=== PATIENT | female | born 1950 | race Caucasian/White ===

== ENCOUNTER 2018-03-18 21:32 | Emergency (ER) | payer MEDICARE, OTHER, SELFPAY ==
[2018-03-18 21:42] VITALS: BP 161/59; PULSE 61; RESP 22; TEMP 36.6; O2SAT 97
--- NOTE | 2018-03-18 21:42 | ED_ITS ---
HPI - General Adult General Chief complaint: Diabetic Problem Stated complaint: States Blood Sugar is very high Time Seen by Provider: 03/18/18 21:39 Source: patient and family Mode of arrival: ambulatory Limitations: no limitations History of Present Illness HPI narrative: Patient is a 68-year-old female who presents with high glucose. She has a history of giant cell temporal arteritis she currently on steroids which are being tapered. She had a headache since 02/25/2018. She was started on steroids and had a biopsy which actually was negative. However she continues to have headache and chronic abdominal pain. She actually had an outpatient MRI head and abdomen today. However when she got home she noted that her blood sugar was more than 400. It had been more elevated over the past 4 days but this is the highest that it has been. She did give herself 10 units of Lantus just prior to arrival. She was hospitalized for hyperglycemia years ago when was instructed that if her glucose is over 400 that she needs to be evaluated. She has no nausea or vomiting. Her headache is a little worse now her but has been fairly steady over the past couple of weeks. She has been having ongoing difficulty walking and balance issues nothing worse today. She has chronic ongoing abdominal pain also not any worse today. No vomiting. Onset (ago): week(s) Relieving factors: none Exacerbating factors: none Related Data Home Medications Medication Instructions Recorded Confirmed acyclovir 5 % TOPICAL QID 03/18/18 03/18/18 ascorbic acid (vitamin C) [Vitamin 1,000 mg PO DAILY 03/18/18 03/18/18 C] atenolol 25 mg PO DAILY 03/18/18 03/18/18 biotin 5,000 mg PO DAILY 03/18/18 03/18/18 conjugated estrogens [Premarin] 0.45 mg PO DAILY 03/18/18 03/18/18 cyclosporine [Restasis] 0.05 % EYE-BOTH BID 03/18/18 03/18/18 diazepam [Valium] 5 mg PO DAILY PRN 03/18/18 03/18/18 fluticasone [Flonase Allergy 50 mcg INTRANASAL DAILY PRN 03/18/18 03/18/18 Relief] folic acid 800 mcg PO DAILY 03/18/18 03/18/18 meclizine 12.5 mg PO DAILY 03/18/18 03/18/18 meloxicam 15 mg PO DAILY 03/18/18 03/18/18 metformin 1,000 mg PO BID 03/18/18 03/18/18 neomycin-polymyxin B-dexameth 1 drp EYE-BOTH BID 03/18/18 03/18/18 [Maxitrol] omega-3 acid ethyl esters [Lovaza] 2 cap PO BID 03/18/18 03/18/18 prednisone 40 mg PO DAILY 03/18/18 03/18/18 pyridoxine (vitamin B6) [Vitamin 50 mg PO BID 03/18/18 03/18/18 B-6] ranitidine HCl 300 mg PO DAILY 03/18/18 03/18/18 sertraline 75 mg PO DAILY 03/18/18 03/18/18 vitamin B complex 2 tab PO DAILY 03/18/18 03/18/18 Allergies Allergy/AdvReac Type Severity Reaction Status Date / Time gabapentin Allergy Verified 03/18/18 21:42 Iodinated Contrast- Oral and Allergy Verified 03/18/18 21:42 IV Dye Review of Systems Review of Systems All systems reviewed & are unremarkable except as noted in HPI and below Constitutional Reports system reviewed and no additional complaints, except as docu, Reports fatigue, Denies frequent falls, Reports headache(s), Reports poor appetite and Reports weight loss (10 lb in a week) Eyes Reports change in vision (Blurry diagnosed with a retinal hemorrhage in the right eye by Ophthalmology), Denies irritation, Denies itchy eyes and Denies loss of vision ENT Ears, Nose, Mouth, and Throat: Denies dizziness, Denies facial pain, Reports headache(s) and Reports neck pain Cardiovascular Denies chest pain, Denies syncope, Denies irregular heart rhythm, Denies lightheadedness, Denies palpitations, Denies dyspnea, Denies dyspnea on exertion and Denies orthopnea Respiratory Denies cough, Denies dyspnea, Denies dyspnea on exertion and Denies wheezing Gastrointestinal Gastrointestinal: Reports system reviewed and no additional complaints, except as docu, Reports abdominal pain, Reports dyspepsia and Reports nausea Genitourinary Denies hematuria, Denies flank pain, Denies urinary incontinence and Denies urinary urgency Musculoskeletal Denies abnormal gait and Reports neck pain Integumentary/Breasts Denies pruritus, Denies erythema, Denies rash and Denies wounds Neurologic Denies abnormal gait, Denies dizziness, Denies syncope, Denies frequent falls, Reports headache(s), Denies lack of coordination, Denies focal weakness, Denies loss of vision and Denies seizure-like activity Endocrine Reports fatigue and Denies palpitations Allergic/Immunologic Denies itchy eyes and Denies wheezing PFSH Medical History Diabetes (Acute) Giant cell arteritis (Acute) Hypertension (Acute) Social History caregiver/support person: Yes (son) Exam Const General: cooperative and healthy appearing [facility] Head: normal to inspection and normocephalic Mouth: oral mucosae normal Resp Effort & Inspection: normal respiratory effort, able to speak in complete sentences, no respiratory distress and no use of accessory muscles Auscultation: clear to auscultation bilaterally, no rales, no rhonchi and no wheezes Cardio Rate: regular rate Rhythm: regular rhythm Heart Sounds: no click, no gallops, no murmurs and no rubs Pulses: normal peripheral pulses Skin General: no rashes or lesions noted and warm Lesions: no lesions Neuro General: alert, awake, oriented x3, no meningeal signs and no focal motor deficits Cranial Nerves: CN's II-XI intact bilaterally Cognition: normal cognition Speech: speech normal Medical Decision Making MDM Narrative Medical decision making narrative: Glucose is coming down. No sign of DKA. Mild elevation in the lipase is given 2 L of IV fluids. She has had chronic ongoing abdominal pain and headache. Glucose elevated likely due to prednisone. She does have Humalog and Lantus at home. She thinks she lost her sliding scale. She is given instructions on how to use 1 by myself and a copy of [facility] subcutaneous insulin algorithm 1. All questions have been addressed. Her headache actually improved with Zofran fluid and Tylenol. She was sleeping. She is ambulatory to the restroom without assistance.. No ketones in her urine. At home she is taking meloxicam and prednisone. She is also on an antacid she knows that this combination can hurt her stomach. I recommended Tylenol. Lab Data Result diagrams: 03/18/18 22:00 03/18/18 22:00 Lab Results 03/18/18 03/18/18 Range/Units 22:00 22:00 WBC 9.7 (4.5-11.0) X10^3/uL RBC 4.57 (4.0-5.2) X10^6/uL Hgb 13.2 (12.0-16.0) g/dL Hct 39.2 (36-46) % MCV 85.9 (80-100) fL MCH 28.8 (26-34) PG MCHC 33.6 (30-36) % RDW 15.9 H (11.6-14.8) % Plt Count 229 (150-400) X10^3/uL Neut % (Auto) 87.0 H (50-75) % Lymph % (Auto) 9.7 L (25-40) % [place] % (Auto) 3.1 (3-14) % Eos % (Auto) 0.0 L (2-4) % Baso % (Auto) 0.2 (0-2) % Neut # (Auto) 8500 H (2152-7854) /uL Sodium 132 L (137-145) mmol/L Potassium 4.7 (3.4-5.1) mmol/L Chloride 93.0 L (98-107) mmol/L Carbon Dioxide 23.0 (22-32) mmol/L BUN 36.0 H (7-17) mg/dL Creatinine 1.10 H (0.52-1.04) mg/dL Estimated GFR 49.1 L (>60) mL/min BUN/Creatinine Ratio 32.7 H (6-22) Glucose 513 H* (80-110) mg/dL Calcium 9.4 (8.4-10.2) mg/dL Total Bilirubin 0.5 (0.2-1.3) mg/dL AST 23 (14-36) IU/L ALT 19 (9-52) IU/L Alkaline Phosphatase 81 (38-126) U/L Total Protein 7.0 (6.3-8.2) g/dL Albumin 4.0 (3.5-5.0) g/dL Globulin 3.0 (1.7-4.1) g/dL Albumin/Globulin Ratio 1.3 (1.0-2.8) Lipase 574 H (23-300) U/L Course Orders Ordered: ED Orders 03/18/18 22:04 Lipase Stat 03/18/18 22:05 Complete Blood Count AUTO DIFF Stat 03/18/18 22:06 Comprehensive Metabolic Panel Stat Lipase Stat Urinalysis and Microscopic Stat Discontinued Medications Acetaminophen (Tylenol) 975 mg PO NOW ONE Stop: 03/18/18 22:05 Last Admin: 03/18/18 22:20 Dose: 975 mg Sodium Chloride (Normal Saline 0.9%) 1,000 mls @ 1,000 mls/hr IV BOLUS ONE Stop: 03/18/18 23:03 Last Infusion: 03/18/18 23:21 Dose: 0 mls/hr Admin: 03/18/18 22:27 Dose: 1,000 mls/hr Sodium Chloride (Normal Saline 0.9%) 1,000 mls @ 1,000 mls/hr IV BOLUS ONE Stop: 03/18/18 23:25 Last Infusion: 03/19/18 00:29 Dose: 0 mls/hr Admin: 03/18/18 23:21 Dose: 1,000 mls/hr Insulin Human Regular (Humulin R) 10 unit SUBCUT NOW ONE Stop: 03/18/18 22:24 Last Admin: 03/18/18 22:39 Dose: 10 unit Ondansetron HCl (Zofran) 4 mg IV NOW ONE Stop: 03/18/18 22:05 Last Admin: 03/18/18 22:19 Dose: 4 mg Last Vital Signs Temp 97.5 F L 03/19/18 00:19 Pulse 57 L 03/19/18 00:19 Resp 14 03/19/18 00:19 BP 143/59 H 03/19/18 00:19 Pulse Ox 98 03/19/18 00:19 Discharge Plan Departure Patient Disposition: Home, Self-Care Clinical Impression: Acute hyperglycemia Discharge Date/Time: 03/19/18 00:37 Interventions: ED Discharge Assessment Last Done: 03/19/18 00:36 Instructions: DI for Diabetes Type 1 -- Adult Activity Restrictions/Additional Instructions: *You have been diagnosed with high glucose *What to do: Glucose is uncontrolled secondary to prednisone. Talk with her primary provider about increasing your insulin as needed. *Take medications as directed *Follow up with your primary care provider in 2-3 days *Return to ER if you should have weakness, speech difficulty, vision changes, fever, persistent vomiting, worsening abdominal pain or any new, worsening or concerning symptoms Prescriptions: No Action acyclovir 5 % Ointment 5 % Topical QID RF: 0 ascorbic acid (vitamin C) [Vitamin C] 1,000 mg Tablet 1,000 mg PO DAILY RF: 0 biotin 5 mg Capsule 5,000 mg PO DAILY RF: 0 atenolol 25 mg Tablet 25 mg PO DAILY RF: 0 vitamin B complex Tablet 2 tab PO DAILY RF: 0 meloxicam 15 mg Tablet 15 mg PO DAILY RF: 0 prednisone 20 mg Tablet 40 mg PO DAILY RF: 0 meclizine 12.5 mg Tablet 12.5 mg PO DAILY RF: 0 metformin 1,000 mg Tablet 1,000 mg PO BID RF: 0 neomycin-polymyxin B-dexameth [Maxitrol] 3.5mg/mL-10,000 unit/mL-0.1 % Drops, Suspension 1 drp EYE-BOTH BID RF: 0 ranitidine HCl 150 mg Tablet 300 mg PO DAILY RF: 0 fluticasone [Flonase Allergy Relief] 50 mcg/actuation [place],Suspension 50 mcg Intranasal DAILY PRN (Reason: Allergy Symptoms) RF: 0 sertraline 50 mg Tablet 75 mg PO DAILY RF: 0 folic acid 800 mcg Tablet 800 mcg PO DAILY RF: 0 diazepam [Valium] 5 mg Tablet 5 mg PO DAILY PRN (Reason: Anxiety) RF: 0 cyclosporine [Restasis] 0.05 % [place] 0.05 % EYE-BOTH BID RF: 0 conjugated estrogens [Premarin] 0.45 mg Tablet 0.45 mg PO DAILY RF: 0 omega-3 acid ethyl esters [Lovaza] 1 gram Capsule 2 cap PO BID RF: 0 pyridoxine (vitamin B6) [Vitamin B-6] 50 mg Capsule 50 mg PO BID RF: 0 Referrals: [facility] [Provider Group] [facility] [Provider Group] [facility] [Provider Group] [facility] [Provider Group]
[2018-03-18 22:19] LABS: Alanine Aminotransferase 19 IU/L (9-52); Albumin Globulin Ratio 1.3 (1.0-2.8); Alkaline Phosphatase 81 U/L (38-126); Aspartate Aminotransferase 23 IU/L (14-36); BUN Creatinine Ratio 32.7 (6-22); Bilirubin Total 0.5 mg/dL (0.2-1.3); Calcium 9.4 mg/dL (8.4-10.2); Estimated Glomerular Filt Rate 49.1 mL/min (>60); HEMOLYSIS 35 (0-50); Lipase 574 U/L (23-300); Potassium 4.7 mmol/L (3.4-5.1); Sodium 132 mmol/L (137-145)
[2018-03-18] MEDS: ONDANSETRON 4 MG/2 ML INJ IV (22:19)
[2018-03-18] MEDS: ACETAMINOPHEN 325 MG TABLET 975 MG PO (22:20)
[2018-03-18 22:22] LABS: Glucose 513 mg/dL (80-110)
[2018-03-18 22:26] LABS: Add Manual Diff / Slide Review NO; Basophils Percent Auto 0.2 % (0-2); Hematocrit 39.2 % (36-46); Hemoglobin 13.2 g/dL (12.0-16.0); Lymphocytes Percent Auto 9.7 % (25-40); Mean Corpuscular HGB Conc 33.6 % (30-36); Mean Corpuscular Hemoglobin 28.8 PG (26-34); Mean Corpuscular Volume 85.9 fL (80-100); Monocytes Percent Auto 3.1 % (3-14); Neutrophils Absolute Auto 8500 /uL (3000-5900); Platelet Count 229 X10^3/uL (150-400); Red Blood Cell Count 4.57 X10^6/uL (4.0-5.2); Red Cell Distribution Width 15.9 % (11.6-14.8); White Blood Cell Count 9.7 X10^3/uL (4.5-11.0)
[2018-03-18] MEDS: SODIUM CHLORIDE 0.9% 1,000 ML 1000 ML IV ×2 (22:27→23:21)
[2018-03-18] MEDS: INSULIN REGULAR 100 UNIT/ML 3 ML VIAL 10 UNIT SUBCUT (22:39)
[2018-03-19 00:19] VITALS: BP 143/59; PULSE 57; RESP 14; TEMP 36.4; O2SAT 98
== END 2018-03-19 00:37 | disposition home or self-care (01) ==
PROVIDERS: Emergency Provider Emergency Medicine
DX: R73.9 Hyperglycemia, unspecified (principal)
CPT/HCPCS: 36591; 80053; 81003; 82962; 83690; 85025; 96361; 96372; 96374; 99283; 99284; 99291; J2405

== ENCOUNTER 2018-05-28 07:59 | Day surgery (SDC) | payer MEDICARE, OTHER, SELFPAY ==
[2018-05-28] VITALS (7 sets, daily range): BP systolic 131–152; BP diastolic 62–78; PULSE 64–74; RESP 14–16; TEMP 36.1–36.4; O2SAT 92–97; BMI 24.5
--- NOTE | 2018-05-28 | PATH_ITS ---
[facility] Accession Number: [id number] . 01 Material submitted: . PART A: DUODENAL BIOPSY PART B: GASTRIC BIOPSY PART C: RANDOM ESOPHAGIAL BIOPSY PART D: RANDOM COLON BIOPSY . 02 Diagnosis: A. Duodenum, Biopsy: Duodenal mucosa with no diagnostic abnormality. Negative for active inflammation, features of sprue, dysplasia and malignancy. . B. Stomach, Biopsy: Antral and body-type mucosa with no diagnostic abnormality. No evidence of Helicobacter on H/E stain. Negative for intestinal metaplasia. Negative for dysplasia and malignancy. . C. Esophagus, Random Biopsies: Squamous epithelium with no diagnostic abnormality. Intraepithelial eosinophils are not increased. Negative for dysplasia and malignancy. . D. Random Colon, Biopsies: Colonic mucosa with no diagnostic abnormality. Negative for active, chronic and microscopic colitis. Negative for dysplasia and malignancy. [facility]/05/29/2018 . 02 Electronically signed: . Monique Dos Santos MD, Pathologist NPI- [id number] . 01 Gross description: . Received four formalin-filled containers, each labeled with the patient's name: . A. In a container labeled duodenal, the specimen consists of two 0.1 0.3 cm portions of tissue, entirely submitted in cassette A. B. In a container labeled gastric (the container leaked in transit), the specimen consists of two 0.2 cm portions of tissue, entirely submitted in cassette B. C. In a container labeled random esophageal, the specimen consists of two less than 0.1 cm to 0.1 cm portions of tissue, entirely submitted in cassette C. D. In a container labeled random colon, the specimen consists of four 0.1-0.3 cm portions of tissue, entirely submitted in cassette D. ([id number]) /FRR . 02 Pathologist provided ICD-10: R10.9 . 02 CPT . 116324, 609395, 696603, 988306 Performed at: 01 [facility] [address] [id number] MD Jose A Singh MD Phone: [phone] Performed at: 02 [facility] [address] [place], [place] [id number] MD Moi Rodrigues MD Phone: [phone]
[2018-05-28] MEDS: SODIUM CHLORIDE 0.9% 1,000 ML 42 ML IV (08:26)
[2018-05-28] MEDS: fentaNYL 250 MCG/5 ML INJ IV (09:54)
[2018-05-28] MEDS: MIDAZOLAM 5 MG/5 ML VIAL IV (09:54)
--- NOTE | 2018-05-28 09:54 | PM.OP.ENDO ---
Operative Date/Time/Diagnoses Date of procedure: 05/28/18 Time of procedure: 09:54 Pre-op diagnosis: See indications Post-op diagnosis: same Procedure & Clinicians Study performed: EGD and colonoscopy Same procedure as scheduled: Yes Indications: Diarrhea, nausea and vomiting, heartburn unresponsive to medications, cervical dysphagia, weight loss, abdominal pain, history of vasculitis Surgeon: Isabell Lou Procedure Notes Procedure in detail: After informed consent was obtained the patient was placed in the left lateral decubitus position. The video upper scope was placed into the oropharynx and with the patient's help swallowed into the esophagus. The esophagus, stomach, and duodenum were carefully examined. The scope was removed the patient tolerated procedure well. The patient was then turned to the colonoscope substituted. This was inserted into the rectum slowly advanced to the cecum. Preparation was good. On slow withdrawal the mucosa was carefully examined. Scope was removed patient tolerated procedure well Blood loss none Complications none Sedation Versed 5 mg fentanyl 100 mcg IV titration Total sedation time 27 min Findings EGD One. Normal esophagus. Biopsies taken 2. Normal stomach. Biopsies taken 3. Normal duodenum. Biopsies taken Colonoscopy 1. Normal colonoscopy to cecum. Random biopsies taken to rule out microscopic colitis Patient will follow up with Dr. Carrera in 4-8 weeks. Office will call to schedule.
--- NOTE | 2018-05-28 10:13 | SUR.PHASEI ---
Eyes finally opened spontaneously, albeit briefly as opposed to opening to voice.
--- NOTE | 2018-05-28 11:11 | SUR.PHASEII ---
BLOOD GLUCOSE 106 AT 1030
== END 2018-05-28 10:45 | disposition home or self-care (01) ==
PROVIDERS: Visit Provider Internal Medicine Gastroenterology
PROC: 0DJ08ZZ Inspection of Upper Intestinal Tract, Via Natural or Artificial Opening Endoscopic (ICD-10-PCS; CPT 43235; principal; 2018-05-28 09:00)
PROC: 0DJD8ZZ Inspection of Lower Intestinal Tract, Via Natural or Artificial Opening Endoscopic (ICD-10-PCS; CPT 45378; 2018-05-28 09:00)
DX: R19.7 Diarrhea, unspecified (principal); R11.2 Nausea with vomiting, unspecified; R12 Heartburn; R13.19 Other dysphagia; R63.4 Abnormal weight loss; R10.9 Unspecified abdominal pain; Z79.4 Long term (current) use of insulin
CPT/HCPCS: 45380; 43239; 88305; J2250; J3010

== ENCOUNTER 2018-10-29 12:34 | Inpatient (IN) | payer MEDICARE, OTHER, SELFPAY ==
[2018-10-29] VITALS (7 sets, daily range): BP systolic 133–160; BP diastolic 57–80; PULSE 69–86; RESP 16–18; TEMP 36.2–36.8; O2SAT 94–100; BMI 24.3
--- NOTE | 2018-10-29 12:42 | ED.ABDPAIN ---
HPI - Abdominal Pain <Shikha Killian PA-C - Last Filed: 10/29/18 22:17> General Chief Complaint: Abdominal Pain Stated Complaint: PAIN IN LEFT SIDE GROIN AREA Time Seen by Provider: 10/29/18 12:41 Source: patient Mode of arrival: ambulatory Limitations: no limitations History of Present Illness HPI narrative: This 68-year-old female comes in due to left groin area mass and pain. She states that she 1st noticed this last Saturday, and has been gradually worsening. She states actually yesterday was worse than today as far as the pain goes. Her PCP was not available today so she came in here. She states that pain is worse with pressure on the site. It is localized. She has a history of rectocele and bladder prolapse and notes these have been gradually worse as well. She denies any acute urinary symptoms. She has chronic intermittent diarrhea and denies any bowel habit changes. She states that she has not had vomiting. She has some ongoing nausea and chest discomfort due to severe acid reflux that she states is unchanged. She denies any dyspnea. She does not know of any fevers at home, thinks maybe 1 day she had 1 but not in the last couple of days. She denies any other acute complaints on systems review. She has been straining more in general recently and her son notes that she has a small dog that is about 20 lb overweight that she does lift, so thinks maybe contributes. Her last meal was breakfast about 9:00 a.m. this morning. She states her blood sugars were high after [place] dinner, 225. Related Data Home Medications Medication Instructions Recorded Confirmed acyclovir 5 % TOPICAL QID 03/18/18 10/29/18 ascorbic acid (vitamin C) [Vitamin 1,000 mg PO DAILY 03/18/18 10/29/18 C] biotin 5,000 mg PO DAILY 03/18/18 10/29/18 conjugated estrogens [Premarin] 0.45 mg PO DAILY 03/18/18 10/29/18 cyclosporine [Restasis] 0.05 % EYE-BOTH BID 03/18/18 10/29/18 diazepam [Valium] 5 mg PO DAILY PRN 03/18/18 10/29/18 fluticasone [Flonase Allergy 50 mcg INTRANASAL DAILY PRN 03/18/18 10/29/18 Relief] folic acid 800 mcg PO DAILY 03/18/18 10/29/18 meclizine 12.5 mg PO DAILY 03/18/18 10/29/18 metformin 500 mg PO BID 03/18/18 10/29/18 neomycin-polymyxin B-dexameth 1 drp EYE-BOTH BID 03/18/18 10/29/18 [Maxitrol] omega-3 acid ethyl esters [Lovaza] 2 cap PO BID 03/18/18 10/29/18 pyridoxine (vitamin B6) [Vitamin 50 mg PO BID 03/18/18 10/29/18 B-6] vitamin B complex 2 tab PO DAILY 03/18/18 10/29/18 omeprazole 20 mg PO DAILY 05/28/18 10/29/18 lisinopril 20 mg PO DAILY 10/29/18 10/29/18 Allergies Allergy/AdvReac Type Severity Reaction Status Date / Time gabapentin Allergy Verified 05/28/18 08:19 Iodinated Contrast- Oral and Allergy Verified 05/28/18 08:19 IV Dye atorvastatin AdvReac Verified 10/29/18 12:53 Review of Systems <Shikha Killian PA-C - Last Filed: 10/29/18 22:17> Review of Systems All systems reviewed & are unremarkable except as noted in HPI and below Exam <Shikha Killian PA-C - Last Filed: 10/29/18 22:17> Narrative Exam Narrative: GENERAL APPEARANCE: Patient resting comfortably, in no distress. HEENT: PERRL, EOMI, no scleral icterus NECK: Supple LUNGS: Clear to auscultation bilaterally. HEART: Rate and rhythm regular, normal S1 and S2, no S3 or S4. ABDOMEN: Soft, nontender, nondistended, bowel sounds present x 4 quadrants, no masses palpable, no hepatosplenomegaly. EXTREMITIES: No edema, no calf TTP DERMATOLOGIC: No jaundice or exanthem NEUROLOGIC: Alert and oriented with normal speech and coordination : L. upper mons/groin there is a firm, very tender prominence. Temporarily this is partly reducible. There are bowel sounds. Tender with moving from sit to supine or stand. No other palpable masses or tender area Initial Vital Signs Initial Vital Signs: Vital Signs Temperature 98.1 F 10/29/18 12:50 Pulse Rate 86 12/26/18 12:50 Respiratory Rate 18 10/29/18 12:50 Blood Pressure 160/72 H 10/29/18 12:50 Pulse Oximetry 99 10/29/18 12:50 <Brianna Tao DO - Last Filed: 10/30/18 19:13> Initial Vital Signs Initial Vital Signs: Vital Signs Temperature 98.1 F 10/29/18 12:50 Pulse Rate 86 10/29/18 12:50 Respiratory Rate 18 10/29/18 12:50 Blood Pressure 160/72 H 10/29/18 12:50 Pulse Oximetry 99 10/29/18 12:50 Course <Shikha Killian PA-C - Last Filed: 10/29/18 22:17> Additional Information: US findings reviewed. I have spoken with Dr. Aceves on-call for surgery who agrees patient will need to go to the OR. Labs and EKG ordered. Patient has been NPO since 9 or 9:30 a.m. aside from her pain pills. Dr. Aceves will evaluate here when she finishes her OR case and plans to take her to OR directly Orders Ordered: ED Orders 10/31/18 05:00 Complete Blood Count AUTO DIFF Routine Comprehensive Metabolic Panel Routine Acetaminophen (Tylenol) 650 mg PO Q6HR PRN PRN Reason: Pain, Mild (1-3) Acyclovir (Zovirax 5% Oint) 1 applic TOP QID [facility] Last Admin: 10/30/18 17:16 Dose: 1 applic Admin: 10/30/18 14:28 Dose: Not Given Admin: 10/30/18 08:55 Dose: Not Given Admin: 10/29/18 19:51 Dose: Not Given Atenolol (Tenormin) 25 mg PO DAILY [facility] Last Admin: 10/30/18 09:03 Dose: Not Given Diazepam (Valium) 5 mg PO Q12HR [facility] Last Admin: 10/30/18 14:53 Dose: Not Given Admin: 10/30/18 01:38 Dose: Not Given Docusate Sodium (Colace) 100 mg PO BID PRN PRN Reason: Constipation Last Admin: 10/30/18 08:56 Dose: 100 mg Duloxetine HCl (Cymbalta) 30 mg PO DAILY [facility] Last Admin: 10/30/18 09:04 Dose: Not Given Fluticasone Propionate (Flonase) 1 spray NASAL DAILY PRN PRN Reason: Congestion Lactated Ringer's (Lactated Ringers) 1,000 mls @ 75 mls/hr IV CONT [facility] Last Admin: 10/30/18 09:55 Dose: 75 mls/hr Infusion: 10/30/18 09:12 Dose: 75 mls/hr Admin: 10/29/18 19:52 Dose: 75 mls/hr Morphine Sulfate (Morphine Film Numberer) 30 mg in 30 mls @ 0 mls/hr IV Q8HR [facility] Metformin HCl (Glucophage) 1,000 mg PO 0800,1700 [facility] Last Admin: 10/30/18 17:16 Dose: 1,000 mg Admin: 10/30/18 08:54 Dose: 1,000 mg Naloxone HCl (Narcan) 0.2 mg IV Q2MIN PRN; Protocol PRN Reason: Opiate Reversal Non-Formulary Medication (Cyclosporine [Restasis]) 0.05 % EYE-BOTH BID [facility] Last Admin: 10/30/18 09:49 Dose: Admin: 10/29/18 21:13 Dose: Not Given Non-Formulary Medication (Conjugated Estrogens [Premarin]) 0.45 mg PO DAILY [facility] Last Admin: 10/30/18 09:49 Dose: Ondansetron HCl (Zofran) 4 mg IV Q4HR PRN PRN Reason: Nausea And Vomiting Last Admin: 10/30/18 09:55 Dose: 4 mg Pantoprazole Sodium (Protonix) 20 mg PO 0700,2100 [facility] Last Admin: 10/30/18 06:35 Dose: 20 mg Admin: 10/29/18 21:15 Dose: Not Given Discontinued Medications Acetaminophen (Tylenol) 325 mg PO NOW PRN PRN Reason: Pain, Mild (1-3) Hydrocodone Bitart/Acetaminophen ([place] 5/325) 1 tab PO NOW ONE Stop: 10/29/18 13:02 Last Admin: 10/29/18 13:08 Dose: 1 tab Hydrocodone Bitart/Acetaminophen ([place] 5/325) 1 tab PO NOW ONE Stop: 10/29/18 14:42 Last Admin: 10/29/18 14:45 Dose: 1 tab Hydrocodone Bitart/Acetaminophen ([place] 5/325) 1 tab PO Q30MIN PRN PRN Reason: Mild or moderate pain Fentanyl (Sublimaze) 25 mcg IV Q5MIN PRN PRN Reason: Pain, Mild (1-3) Hydromorphone HCl (Dilaudid) 0.25 mg IV Q5MIN PRN PRN Reason: Pain, Mild (1-3) Sodium Chloride (Normal Saline 0.9%) 1,000 mls @ 125 mls/hr IV CONT [facility] Last Infusion: 10/29/18 16:41 Dose: 0 mls/hr Admin: 10/29/18 15:15 Dose: 125 mls/hr Cefazolin Sodium/Dextrose (Ancef) 2 gm in 100 mls @ 200 mls/hr IV NOW ONE Stop: 10/29/18 18:10 Last Admin: 10/29/18 19:47 Dose: Lactated Ringer's (Lactated Ringers) 1,000 mls @ 42 mls/hr IV CONT [facility] Last Admin: 10/29/18 19:52 Dose: Lactated Ringer's (Lactated Ringers) 1,000 mls @ 75 mls/hr IV CONT [facility] Last Admin: 10/29/18 20:19 Dose: Morphine Sulfate (Morphine) 4 mg IV NOW ONE Stop: 10/29/18 15:09 Last Admin: 10/29/18 15:15 Dose: 4 mg Ondansetron HCl (Zofran) 4 mg IV NOW PRN PRN Reason: Nausea And Vomiting Oxycodone HCl (Percolone) 5 mg PO Q3HR PRN PRN Reason: Pain, Moderate (4-6) Last Admin: 10/30/18 14:52 Dose: 5 mg Admin: 10/30/18 10:17 Dose: 5 mg Admin: 10/30/18 06:34 Dose: 5 mg Admin: 10/30/18 00:25 Dose: 5 mg Admin: 10/29/18 21:28 Dose: 5 mg Vital Signs - 8 hr 10/30/18 12:00 10/30/18 15:23 Temperature 97.4 F L 98.9 F Pulse Rate 74 82 Respiratory Rate 16 16 Blood Pressure 139/69 115/52 L Pulse Oximetry 95 97 <Brianna Tao, - Last Filed: 10/30/18 19:13> Orders Ordered: ED Orders 10/31/18 05:00 Complete Blood Count AUTO DIFF Routine Comprehensive Metabolic Panel Routine Acetaminophen (Tylenol) 650 mg PO Q6HR PRN PRN Reason: Pain, Mild (1-3) Acyclovir (Zovirax 5% Oint) 1 applic TOP QID [facility] Last Admin: 10/30/18 17:16 Dose: 1 applic Admin: 10/30/18 14:28 Dose: Not Given Admin: 10/30/18 08:55 Dose: Not Given Admin: 10/29/18 19:51 Dose: Not Given Atenolol (Tenormin) 25 mg PO DAILY [facility] Last Admin: 10/30/18 09:03 Dose: Not Given Diazepam (Valium) 5 mg PO Q12HR [facility] Last Admin: 10/30/18 14:53 Dose: Not Given Admin: 10/30/18 01:38 Dose: Not Given Docusate Sodium (Colace) 100 mg PO BID PRN PRN Reason: Constipation Last Admin: 10/30/18 08:56 Dose: 100 mg Duloxetine HCl (Cymbalta) 30 mg PO DAILY [facility] Last Admin: 10/30/18 09:04 Dose: Not Given Fluticasone Propionate (Flonase) 1 spray NASAL DAILY PRN PRN Reason: Congestion Lactated Ringer's (Lactated Ringers) 1,000 mls @ 75 mls/hr IV CONT [facility] Last Admin: 10/30/18 09:55 Dose: 75 mls/hr Infusion: 10/30/18 09:12 Dose: 75 mls/hr Admin: 10/29/18 19:52 Dose: 75 mls/hr Morphine Sulfate (Morphine Film Numberer) 30 mg in 30 mls @ 0 mls/hr IV Q8HR [facility] Metformin HCl (Glucophage) 1,000 mg PO 0800,1700 [facility] Last Admin: 10/30/18 17:16 Dose: 1,000 mg Admin: 10/30/18 08:54 Dose: 1,000 mg Naloxone HCl (Narcan) 0.2 mg IV Q2MIN PRN; Protocol PRN Reason: Opiate Reversal Non-Formulary Medication (Cyclosporine [Restasis]) 0.05 % EYE-BOTH BID [facility] Last Admin: 10/30/18 09:49 Dose: Admin: 10/29/18 21:13 Dose: Not Given Non-Formulary Medication (Conjugated Estrogens [Premarin]) 0.45 mg PO DAILY [facility] Last Admin: 10/30/18 09:49 Dose: Ondansetron HCl (Zofran) 4 mg IV Q4HR PRN PRN Reason: Nausea And Vomiting Last Admin: 10/30/18 09:55 Dose: 4 mg Pantoprazole Sodium (Protonix) 20 mg PO 0700,2100 [facility] Last Admin: 10/30/18 06:35 Dose: 20 mg Admin: 10/29/18 21:15 Dose: Not Given Discontinued Medications Acetaminophen (Tylenol) 325 mg PO NOW PRN PRN Reason: Pain, Mild (1-3) Hydrocodone Bitart/Acetaminophen ([place] 5/325) 1 tab PO NOW ONE Stop: 10/29/18 13:02 Last Admin: 10/29/18 13:08 Dose: 1 tab Hydrocodone Bitart/Acetaminophen ([place] 5/325) 1 tab PO NOW ONE Stop: 10/29/18 14:42 Last Admin: 10/29/18 14:45 Dose: 1 tab Hydrocodone Bitart/Acetaminophen ([place] 5/325) 1 tab PO Q30MIN PRN PRN Reason: Mild or moderate pain Fentanyl (Sublimaze) 25 mcg IV Q5MIN PRN PRN Reason: Pain, Mild (1-3) Hydromorphone HCl (Dilaudid) 0.25 mg IV Q5MIN PRN PRN Reason: Pain, Mild (1-3) Sodium Chloride (Normal Saline 0.9%) 1,000 mls @ 125 mls/hr IV CONT [facility] Last Infusion: 10/29/18 16:41 Dose: 0 mls/hr Admin: 10/29/18 15:15 Dose: 125 mls/hr Cefazolin Sodium/Dextrose (Ancef) 2 gm in 100 mls @ 200 mls/hr IV NOW ONE Stop: 10/29/18 18:10 Last Admin: 10/29/18 19:47 Dose: Lactated Ringer's (Lactated Ringers) 1,000 mls @ 42 mls/hr IV CONT [facility] Last Admin: 10/29/18 19:52 Dose: Lactated Ringer's (Lactated Ringers) 1,000 mls @ 75 mls/hr IV CONT [facility] Last Admin: 10/29/18 20:19 Dose: Morphine Sulfate (Morphine) 4 mg IV NOW ONE Stop: 10/29/18 15:09 Last Admin: 10/29/18 15:15 Dose: 4 mg Ondansetron HCl (Zofran) 4 mg IV NOW PRN PRN Reason: Nausea And Vomiting Oxycodone HCl (Percolone) 5 mg PO Q3HR PRN PRN Reason: Pain, Moderate (4-6) Last Admin: 10/30/18 14:52 Dose: 5 mg Admin: 10/30/18 10:17 Dose: 5 mg Admin: 10/30/18 06:34 Dose: 5 mg Admin: 10/30/18 00:25 Dose: 5 mg Admin: 10/29/18 21:28 Dose: 5 mg Vital Signs - 8 hr 10/30/18 12:00 10/30/18 15:23 Temperature 97.4 F L 98.9 F Pulse Rate 74 82 Respiratory Rate 16 16 Blood Pressure 139/69 115/52 L Pulse Oximetry 95 97 MDM - Abdominal Pain <Shikha Killian PA-C - Last Filed: 10/29/18 22:17> Lab Data Attestation: I reviewed the patient's lab results. Result diagrams: 10/29/18 15:20 10/30/18 06:12 Lab Results 10/29/18 10/29/18 10/29/18 Range/Units 15:20 15:20 15:20 WBC 6.2 (4.5-11.0) X10^3/uL RBC 3.77 L (4.0-5.2) X10^6/uL Hgb 11.2 L (12.0-16.0) g/dL Hct 32.3 L (36-46) % MCV 85.6 (80-100) fL MCH 29.8 (26-34) PG MCHC 34.8 (30-36) % RDW 14.5 (11.6-14.8) % Plt Count 234 (150-400) X10^3/uL Neut % (Auto) 60.9 (50-75) % Lymph % (Auto) 28.8 (25-40) % Cedar % (Auto) 6.1 (3-14) % Eos % (Auto) 2.7 (2-4) % Baso % (Auto) 1.5 (0-2) % Neut # (Auto) 3800 (5258-4835) /uL PT 10.0 L (10.1-12.7) SECONDS INR 0.9 (0.9-1.3) APTT 29 (26.4-36.2) SECONDS Sodium (137-145) mmol/L Potassium (3.4-5.1) mmol/L Chloride (98-107) mmol/L Carbon Dioxide (22-32) mmol/L BUN (7-17) mg/dL Creatinine (0.52-1.04) mg/dL Estimated GFR (>60) mL/min BUN/Creatinine Ratio (6-22) Glucose (80-110) mg/dL Lactate (0.7-2.1) mmol/L Calcium (8.4-10.2) mg/dL Total Bilirubin (0.2-1.3) mg/dL AST (14-36) IU/L ALT (9-52) IU/L Alkaline Phosphatase (38-126) U/L Total Protein (6.3-8.2) g/dL Albumin (3.5-5.0) g/dL Globulin (1.7-4.1) g/dL Albumin/Globulin Ratio (1.0-2.8) Lipase 430 H (23-300) U/L 10/29/18 10/29/18 10/30/18 Range/Units 15:20 15:20 06:12 WBC (4.5-11.0) X10^3/uL RBC (4.0-5.2) X10^6/uL Hgb (12.0-16.0) g/dL Hct (36-46) % MCV (80-100) fL MCH (26-34) PG MCHC (30-36) % RDW (11.6-14.8) % Plt Count (150-400) X10^3/uL Neut % (Auto) (50-75) % Lymph % (Auto) (25-40) % Cedar % (Auto) (3-14) % Eos % (Auto) (2-4) % Baso % (Auto) (0-2) % Neut # (Auto) (7979-8172) /uL PT (10.1-12.7) SECONDS INR (0.9-1.3) APTT (26.4-36.2) SECONDS Sodium 136 L 136 L (137-145) mmol/L Potassium 4.9 4.9 (3.4-5.1) mmol/L Chloride 103 102 (98-107) mmol/L Carbon Dioxide 23 27 (22-32) mmol/L BUN 29 H 20 H (7-17) mg/dL Creatinine 1.20 H 1.20 H (0.52-1.04) mg/dL Estimated GFR 44.4 L 44.4 L (>60) mL/min BUN/Creatinine Ratio 24.2 H 16.7 (6-22) Glucose 110 157 H (80-110) mg/dL Lactate 1.0 (0.7-2.1) mmol/L Calcium 9.1 8.8 (8.4-10.2) mg/dL Total Bilirubin 0.3 (0.2-1.3) mg/dL AST 26 (14-36) IU/L ALT 12 (9-52) IU/L Alkaline Phosphatase 81 (38-126) U/L Total Protein 7.2 (6.3-8.2) g/dL Albumin 4.2 (3.5-5.0) g/dL Globulin 3.0 (1.7-4.1) g/dL Albumin/Globulin Ratio 1.4 (1.0-2.8) Lipase (23-300) U/L Point of care testing: Point of Care Testing Glucose POC 152 Urine Dip Bedside Urine Glucose Negative Bedside Urine Bilirubin - Negative Bedside Urine Ketone - Negative Urine Specific Kinney 1.015 Bedside Urine Occult Blood - Negative Bedside Urine pH 6.0 Bedside Urine Protein - Negative Bedside Urine Urobilinogen - Negative Bedside Urine Nitrite - Negative Bedside Urine Leukocytes - Negative Esterase ECG Data Attestation: I personally reviewed and interpreted this ECG as follows: (Sinus rhythm with rate 70, left bundle branch block, normal axis, no previous for comparison) <Brianna Tao, DO - Last Filed: 10/30/18 19:13> Lab Data Lab Results 10/29/18 10/29/18 10/29/18 Range/Units 15:20 15:20 15:20 WBC 6.2 (4.5-11.0) X10^3/uL RBC 3.77 L (4.0-5.2) X10^6/uL Hgb 11.2 L (12.0-16.0) g/dL Hct 32.3 L (36-46) % MCV 85.6 (80-100) fL MCH 29.8 (26-34) PG MCHC 34.8 (30-36) % RDW 14.5 (11.6-14.8) % Plt Count 234 (150-400) X10^3/uL Neut % (Auto) 60.9 (50-75) % Lymph % (Auto) 28.8 (25-40) % Cedar % (Auto) 6.1 (3-14) % Eos % (Auto) 2.7 (2-4) % Baso % (Auto) 1.5 (0-2) % Neut # (Auto) 3800 (0033-7306) /uL PT 10.0 L (10.1-12.7) SECONDS INR 0.9 (0.9-1.3) APTT 29 (26.4-36.2) SECONDS Sodium (137-145) mmol/L Potassium (3.4-5.1) mmol/L Chloride (98-107) mmol/L Carbon Dioxide (22-32) mmol/L BUN (7-17) mg/dL Creatinine (0.52-1.04) mg/dL Estimated GFR (>60) mL/min BUN/Creatinine Ratio (6-22) Glucose (80-110) mg/dL Lactate (0.7-2.1) mmol/L Calcium (8.4-10.2) mg/dL Total Bilirubin (0.2-1.3) mg/dL AST (14-36) IU/L ALT (9-52) IU/L Alkaline Phosphatase (38-126) U/L Total Protein (6.3-8.2) g/dL Albumin (3.5-5.0) g/dL Globulin (1.7-4.1) g/dL Albumin/Globulin Ratio (1.0-2.8) Lipase 430 H (23-300) U/L 10/29/18 10/29/18 10/30/18 Range/Units 15:20 15:20 06:12 WBC (4.5-11.0) X10^3/uL RBC (4.0-5.2) X10^6/uL Hgb (12.0-16.0) g/dL Hct (36-46) % MCV (80-100) fL MCH (26-34) PG MCHC (30-36) % RDW (11.6-14.8) % Plt Count (150-400) X10^3/uL Neut % (Auto) (50-75) % Lymph % (Auto) (25-40) % Cedar % (Auto) (3-14) % Eos % (Auto) (2-4) % Baso % (Auto) (0-2) % Neut # (Auto) (0845-0576) /uL PT (10.1-12.7) SECONDS INR (0.9-1.3) APTT (26.4-36.2) SECONDS Sodium 136 L 136 L (137-145) mmol/L Potassium 4.9 4.9 (3.4-5.1) mmol/L Chloride 103 102 (98-107) mmol/L Carbon Dioxide 23 27 (22-32) mmol/L BUN 29 H 20 H (7-17) mg/dL Creatinine 1.20 H 1.20 H (0.52-1.04) mg/dL Estimated GFR 44.4 L 44.4 L (>60) mL/min BUN/Creatinine Ratio 24.2 H 16.7 (6-22) Glucose 110 157 H (80-110) mg/dL Lactate 1.0 (0.7-2.1) mmol/L Calcium 9.1 8.8 (8.4-10.2) mg/dL Total Bilirubin 0.3 (0.2-1.3) mg/dL AST 26 (14-36) IU/L ALT 12 (9-52) IU/L Alkaline Phosphatase 81 (38-126) U/L Total Protein 7.2 (6.3-8.2) g/dL Albumin 4.2 (3.5-5.0) g/dL Globulin 3.0 (1.7-4.1) g/dL Albumin/Globulin Ratio 1.4 (1.0-2.8) Lipase (23-300) U/L Point of care testing: Point of Care Testing Glucose POC 152 Urine Dip Bedside Urine Glucose Negative Bedside Urine Bilirubin - Negative Bedside Urine Ketone - Negative Urine Specific Kinney 1.015 Bedside Urine Occult Blood - Negative Bedside Urine pH 6.0 Bedside Urine Protein - Negative Bedside Urine Urobilinogen - Negative Bedside Urine Nitrite - Negative Bedside Urine Leukocytes - Negative Esterase Discharge Plan Departure Patient Disposition: Admitted As Inpatient Clinical Impression: Incarcerated hernia Discharge Date/Time: 10/29/18 16:45 Interventions: ED Discharge Assessment Last Done: 10/29/18 16:41 Admit Date/Time: 10/29/18 16:41 Admit Provider: An Aceves <Brianna Tao DO - Last Filed: 10/30/18 19:13> Cosign ED Attending Rivera Attestation: I was immediately available in the department for consultation. Documentation has been reviewed. I agree with assessment and plan.
--- NOTE | 2018-10-29 12:49 | ED_ITS ---
HPI - Abdominal Pain <Shikha Killian PA-C - Last Filed: 10/29/18 22:17> General Chief Complaint: Abdominal Pain Stated Complaint: PAIN IN LEFT SIDE GROIN AREA Time Seen by Provider: 10/29/18 12:41 Source: patient Mode of arrival: ambulatory Limitations: no limitations History of Present Illness HPI narrative: This 68-year-old female comes in due to left groin area mass and pain. She states that she 1st noticed this last Saturday, and has been gradually worsening. She states actually yesterday was worse than today as far as the pain goes. Her PCP was not available today so she came in here. She states that pain is worse with pressure on the site. It is localized. She has a history of rectocele and bladder prolapse and notes these have been gradually worse as well. She denies any acute urinary symptoms. She has chronic intermittent diarrhea and denies any bowel habit changes. She states that she has not had vomiting. She has some ongoing nausea and chest discomfort due to severe acid reflux that she states is unchanged. She denies any dyspnea. She does not know of any fevers at home, thinks maybe 1 day she had 1 but not in the last couple of days. She denies any other acute complaints on systems review. She has been straining more in general recently and her son notes that she has a small dog that is about 20 lb overweight that she does lift, so thinks maybe contributes. Her last meal was breakfast about 9:00 a.m. this morning. She states her blood sugars were high after [place] dinner, 225. Related Data Home Medications Medication Instructions Recorded Confirmed acyclovir 5 % TOPICAL QID 03/18/18 10/29/18 ascorbic acid (vitamin C) [Vitamin 1,000 mg PO DAILY 03/18/18 10/29/18 C] biotin 5,000 mg PO DAILY 03/18/18 10/29/18 conjugated estrogens [Premarin] 0.45 mg PO DAILY 03/18/18 10/29/18 cyclosporine [Restasis] 0.05 % EYE-BOTH BID 03/18/18 10/29/18 diazepam [Valium] 5 mg PO DAILY PRN 03/18/18 10/29/18 fluticasone [Flonase Allergy 50 mcg INTRANASAL DAILY PRN 03/18/18 10/29/18 Relief] folic acid 800 mcg PO DAILY 03/18/18 10/29/18 meclizine 12.5 mg PO DAILY 03/18/18 10/29/18 metformin 500 mg PO BID 03/18/18 10/29/18 neomycin-polymyxin B-dexameth 1 drp EYE-BOTH BID 03/18/18 10/29/18 [Maxitrol] omega-3 acid ethyl esters [Lovaza] 2 cap PO BID 03/18/18 10/29/18 pyridoxine (vitamin B6) [Vitamin 50 mg PO BID 03/18/18 10/29/18 B-6] vitamin B complex 2 tab PO DAILY 03/18/18 10/29/18 omeprazole 20 mg PO DAILY 05/28/18 10/29/18 lisinopril 20 mg PO DAILY 10/29/18 10/29/18 Allergies Allergy/AdvReac Type Severity Reaction Status Date / Time gabapentin Allergy Verified 05/28/18 08:19 Iodinated Contrast- Oral and Allergy Verified 05/28/18 08:19 IV Dye atorvastatin AdvReac Verified 10/29/18 12:53 Review of Systems <Shikha Killian PA-C - Last Filed: 10/29/18 22:17> Review of Systems All systems reviewed & are unremarkable except as noted in HPI and below Exam <Shikha Killian PA-C - Last Filed: 10/29/18 22:17> Narrative Exam Narrative: GENERAL APPEARANCE: Patient resting comfortably, in no distress. HEENT: PERRL, EOMI, no scleral icterus NECK: Supple LUNGS: Clear to auscultation bilaterally. HEART: Rate and rhythm regular, normal S1 and S2, no S3 or S4. ABDOMEN: Soft, nontender, nondistended, bowel sounds present x 4 quadrants, no masses palpable, no hepatosplenomegaly. EXTREMITIES: No edema, no calf TTP DERMATOLOGIC: No jaundice or exanthem NEUROLOGIC: Alert and oriented with normal speech and coordination : L. upper mons/groin there is a firm, very tender prominence. Temporarily this is partly reducible. There are bowel sounds. Tender with moving from sit to supine or stand. No other palpable masses or tender area Initial Vital Signs Initial Vital Signs: Vital Signs Temperature 98.1 F 10/29/18 12:50 Pulse Rate 86 12/26/18 12:50 Respiratory Rate 18 10/29/18 12:50 Blood Pressure 160/72 H 10/29/18 12:50 Pulse Oximetry 99 10/29/18 12:50 <Brianna Tao DO - Last Filed: 10/30/18 19:13> Initial Vital Signs Initial Vital Signs: Vital Signs Temperature 98.1 F 10/29/18 12:50 Pulse Rate 86 10/29/18 12:50 Respiratory Rate 18 10/29/18 12:50 Blood Pressure 160/72 H 10/29/18 12:50 Pulse Oximetry 99 10/29/18 12:50 Course <Shikha Killian PA-C - Last Filed: 10/29/18 22:17> Additional Information: US findings reviewed. I have spoken with Dr. Aceves on- call for surgery who agrees patient will need to go to the OR. Labs and EKG ordered. Patient has been NPO since 9 or 9:30 a.m. aside from her pain pills. Dr. Aceves will evaluate here when she finishes her OR case and plans to take her to OR directly Orders Ordered: ED Orders 10/31/18 05:00 Complete Blood Count AUTO DIFF Routine Comprehensive Metabolic Panel Routine Acetaminophen (Tylenol) 650 mg PO Q6HR PRN PRN Reason: Pain, Mild (1-3) Acyclovir (Zovirax 5% Oint) 1 applic TOP QID [facility] Last Admin: 10/30/18 17:16 Dose: 1 applic Admin: 10/30/18 14:28 Dose: Not Given Admin: 10/30/18 08:55 Dose: Not Given Admin: 10/29/18 19:51 Dose: Not Given Atenolol (Tenormin) 25 mg PO DAILY [facility] Last Admin: 10/30/18 09:03 Dose: Not Given Diazepam (Valium) 5 mg PO Q12HR [facility] Last Admin: 10/30/18 14:53 Dose: Not Given Admin: 10/30/18 01:38 Dose: Not Given Docusate Sodium (Colace) 100 mg PO BID PRN PRN Reason: Constipation Last Admin: 10/30/18 08:56 Dose: 100 mg Duloxetine HCl (Cymbalta) 30 mg PO DAILY [facility] Last Admin: 10/30/18 09:04 Dose: Not Given Fluticasone Propionate (Flonase) 1 spray NASAL DAILY PRN PRN Reason: Congestion Lactated Ringer's (Lactated Ringers) 1,000 mls @ 75 mls/hr IV CONT [facility] Last Admin: 10/30/18 09:55 Dose: 75 mls/hr Infusion: 10/30/18 09:12 Dose: 75 mls/hr Admin: 10/29/18 19:52 Dose: 75 mls/hr Morphine Sulfate (Morphine Air Brake Adjuster) 30 mg in 30 mls @ 0 mls/hr IV Q8HR [facility] Metformin HCl (Glucophage) 1,000 mg PO 0800,1700 [facility] Last Admin: 10/30/18 17:16 Dose: 1,000 mg Admin: 10/30/18 08:54 Dose: 1,000 mg Naloxone HCl (Narcan) 0.2 mg IV Q2MIN PRN; Protocol PRN Reason: Opiate Reversal Non-Formulary Medication (Cyclosporine [Restasis]) 0.05 % EYE-BOTH BID [facility] Last Admin: 10/30/18 09:49 Dose: Admin: 10/29/18 21:13 Dose: Not Given Non-Formulary Medication (Conjugated Estrogens [Premarin]) 0.45 mg PO DAILY [facility] Last Admin: 10/30/18 09:49 Dose: Ondansetron HCl (Zofran) 4 mg IV Q4HR PRN PRN Reason: Nausea And Vomiting Last Admin: 10/30/18 09:55 Dose: 4 mg Pantoprazole Sodium (Protonix) 20 mg PO 0700,2100 [facility] Last Admin: 10/30/18 06:35 Dose: 20 mg Admin: 10/29/18 21:15 Dose: Not Given Discontinued Medications Acetaminophen (Tylenol) 325 mg PO NOW PRN PRN Reason: Pain, Mild (1-3) Hydrocodone Bitart/Acetaminophen ([place] 5/325) 1 tab PO NOW ONE Stop: 10/29/18 13:02 Last Admin: 10/29/18 13:08 Dose: 1 tab Hydrocodone Bitart/Acetaminophen ([place] 5/325) 1 tab PO NOW ONE Stop: 10/29/18 14:42 Last Admin: 10/29/18 14:45 Dose: 1 tab Hydrocodone Bitart/Acetaminophen ([place] 5/325) 1 tab PO Q30MIN PRN PRN Reason: Mild or moderate pain Fentanyl (Sublimaze) 25 mcg IV Q5MIN PRN PRN Reason: Pain, Mild (1-3) Hydromorphone HCl (Dilaudid) 0.25 mg IV Q5MIN PRN PRN Reason: Pain, Mild (1-3) Sodium Chloride (Normal Saline 0.9%) 1,000 mls @ 125 mls/hr IV CONT [facility] Last Infusion: 10/29/18 16:41 Dose: 0 mls/hr Admin: 10/29/18 15:15 Dose: 125 mls/hr Cefazolin Sodium/Dextrose (Ancef) 2 gm in 100 mls @ 200 mls/hr IV NOW ONE Stop: 10/29/18 18:10 Last Admin: 10/29/18 19:47 Dose: Lactated Ringer's (Lactated Ringers) 1,000 mls @ 42 mls/hr IV CONT [facility] Last Admin: 10/29/18 19:52 Dose: Lactated Ringer's (Lactated Ringers) 1,000 mls @ 75 mls/hr IV CONT [facility] Last Admin: 10/29/18 20:19 Dose: Morphine Sulfate (Morphine) 4 mg IV NOW ONE Stop: 10/29/18 15:09 Last Admin: 10/29/18 15:15 Dose: 4 mg Ondansetron HCl (Zofran) 4 mg IV NOW PRN PRN Reason: Nausea And Vomiting Oxycodone HCl (Percolone) 5 mg PO Q3HR PRN PRN Reason: Pain, Moderate (4-6) Last Admin: 10/30/18 14:52 Dose: 5 mg Admin: 10/30/18 10:17 Dose: 5 mg Admin: 10/30/18 06:34 Dose: 5 mg Admin: 10/30/18 00:25 Dose: 5 mg Admin: 10/29/18 21:28 Dose: 5 mg Vital Signs - 8 hr 10/30/18 12:00 10/30/18 15:23 Temperature 97.4 F L 98.9 F Pulse Rate 74 82 Respiratory Rate 16 16 Blood Pressure 139/69 115/52 L Pulse Oximetry 95 97 <Brianna Tao, - Last Filed: 10/30/18 19:13> Orders Ordered: ED Orders 10/31/18 05:00 Complete Blood Count AUTO DIFF Routine Comprehensive Metabolic Panel Routine Acetaminophen (Tylenol) 650 mg PO Q6HR PRN PRN Reason: Pain, Mild (1-3) Acyclovir (Zovirax 5% Oint) 1 applic TOP QID [facility] Last Admin: 10/30/18 17:16 Dose: 1 applic Admin: 10/30/18 14:28 Dose: Not Given Admin: 10/30/18 08:55 Dose: Not Given Admin: 10/29/18 19:51 Dose: Not Given Atenolol (Tenormin) 25 mg PO DAILY [facility] Last Admin: 10/30/18 09:03 Dose: Not Given Diazepam (Valium) 5 mg PO Q12HR [facility] Last Admin: 10/30/18 14:53 Dose: Not Given Admin: 10/30/18 01:38 Dose: Not Given Docusate Sodium (Colace) 100 mg PO BID PRN PRN Reason: Constipation Last Admin: 10/30/18 08:56 Dose: 100 mg Duloxetine HCl (Cymbalta) 30 mg PO DAILY [facility] Last Admin: 10/30/18 09:04 Dose: Not Given Fluticasone Propionate (Flonase) 1 spray NASAL DAILY PRN PRN Reason: Congestion Lactated Ringer's (Lactated Ringers) 1,000 mls @ 75 mls/hr IV CONT [facility] Last Admin: 10/30/18 09:55 Dose: 75 mls/hr Infusion: 10/30/18 09:12 Dose: 75 mls/hr Admin: 10/29/18 19:52 Dose: 75 mls/hr Morphine Sulfate (Morphine Air Brake Adjuster) 30 mg in 30 mls @ 0 mls/hr IV Q8HR [facility] Metformin HCl (Glucophage) 1,000 mg PO 0800,1700 [facility] Last Admin: 10/30/18 17:16 Dose: 1,000 mg Admin: 10/30/18 08:54 Dose: 1,000 mg Naloxone HCl (Narcan) 0.2 mg IV Q2MIN PRN; Protocol PRN Reason: Opiate Reversal Non-Formulary Medication (Cyclosporine [Restasis]) 0.05 % EYE-BOTH BID [facility] Last Admin: 10/30/18 09:49 Dose: Admin: 10/29/18 21:13 Dose: Not Given Non-Formulary Medication (Conjugated Estrogens [Premarin]) 0.45 mg PO DAILY [facility] Last Admin: 10/30/18 09:49 Dose: Ondansetron HCl (Zofran) 4 mg IV Q4HR PRN PRN Reason: Nausea And Vomiting Last Admin: 10/30/18 09:55 Dose: 4 mg Pantoprazole Sodium (Protonix) 20 mg PO 0700,2100 [facility] Last Admin: 10/30/18 06:35 Dose: 20 mg Admin: 10/29/18 21:15 Dose: Not Given Discontinued Medications Acetaminophen (Tylenol) 325 mg PO NOW PRN PRN Reason: Pain, Mild (1-3) Hydrocodone Bitart/Acetaminophen ([place] 5/325) 1 tab PO NOW ONE Stop: 10/29/18 13:02 Last Admin: 10/29/18 13:08 Dose: 1 tab Hydrocodone Bitart/Acetaminophen ([place] 5/325) 1 tab PO NOW ONE Stop: 10/29/18 14:42 Last Admin: 10/29/18 14:45 Dose: 1 tab Hydrocodone Bitart/Acetaminophen ([place] 5/325) 1 tab PO Q30MIN PRN PRN Reason: Mild or moderate pain Fentanyl (Sublimaze) 25 mcg IV Q5MIN PRN PRN Reason: Pain, Mild (1-3) Hydromorphone HCl (Dilaudid) 0.25 mg IV Q5MIN PRN PRN Reason: Pain, Mild (1-3) Sodium Chloride (Normal Saline 0.9%) 1,000 mls @ 125 mls/hr IV CONT [facility] Last Infusion: 10/29/18 16:41 Dose: 0 mls/hr Admin: 10/29/18 15:15 Dose: 125 mls/hr Cefazolin Sodium/Dextrose (Ancef) 2 gm in 100 mls @ 200 mls/hr IV NOW ONE Stop: 10/29/18 18:10 Last Admin: 10/29/18 19:47 Dose: Lactated Ringer's (Lactated Ringers) 1,000 mls @ 42 mls/hr IV CONT [facility] Last Admin: 10/29/18 19:52 Dose: Lactated Ringer's (Lactated Ringers) 1,000 mls @ 75 mls/hr IV CONT [facility] Last Admin: 10/29/18 20:19 Dose: Morphine Sulfate (Morphine) 4 mg IV NOW ONE Stop: 10/29/18 15:09 Last Admin: 10/29/18 15:15 Dose: 4 mg Ondansetron HCl (Zofran) 4 mg IV NOW PRN PRN Reason: Nausea And Vomiting Oxycodone HCl (Percolone) 5 mg PO Q3HR PRN PRN Reason: Pain, Moderate (4-6) Last Admin: 10/30/18 14:52 Dose: 5 mg Admin: 10/30/18 10:17 Dose: 5 mg Admin: 10/30/18 06:34 Dose: 5 mg Admin: 10/30/18 00:25 Dose: 5 mg Admin: 10/29/18 21:28 Dose: 5 mg Vital Signs - 8 hr 10/30/18 12:00 10/30/18 15:23 Temperature 97.4 F L 98.9 F Pulse Rate 74 82 Respiratory Rate 16 16 Blood Pressure 139/69 115/52 L Pulse Oximetry 95 97 MDM - Abdominal Pain <Shikha Kililan PA-C - Last Filed: 10/29/18 22:17> Lab Data Attestation: I reviewed the patient's lab results. Result diagrams: 10/29/18 15:20 10/30/18 06:12 Lab Results 10/29/18 10/29/18 10/29/18 Range/Units 15:20 15:20 15:20 WBC 6.2 (4.5-11.0) X10^3/uL RBC 3.77 L (4.0-5.2) X10^6/uL Hgb 11.2 L (12.0-16.0) g/dL Hct 32.3 L (36-46) % MCV 85.6 (80-100) fL MCH 29.8 (26-34) PG MCHC 34.8 (30-36) % RDW 14.5 (11.6-14.8) % Plt Count 234 (150-400) X10^3/uL Neut % (Auto) 60.9 (50-75) % Lymph % (Auto) 28.8 (25-40) % [place] % (Auto) 6.1 (3-14) % Eos % (Auto) 2.7 (2-4) % Baso % (Auto) 1.5 (0-2) % Neut # (Auto) 3800 (1915-7894) /uL PT 10.0 L (10.1-12.7) SECONDS INR 0.9 (0.9-1.3) APTT 29 (26.4-36.2) SECONDS Sodium (137-145) mmol/L Potassium (3.4-5.1) mmol/L Chloride (98-107) mmol/L Carbon Dioxide (22-32) mmol/L BUN (7-17) mg/dL Creatinine (0.52-1.04) mg/dL Estimated GFR (>60) mL/min BUN/Creatinine Ratio (6-22) Glucose (80-110) mg/dL Lactate (0.7-2.1) mmol/L Calcium (8.4-10.2) mg/dL Total Bilirubin (0.2-1.3) mg/dL AST (14-36) IU/L ALT (9-52) IU/L Alkaline Phosphatase (38-126) U/L Total Protein (6.3-8.2) g/dL Albumin (3.5-5.0) g/dL Globulin (1.7-4.1) g/dL Albumin/Globulin Ratio (1.0-2.8) Lipase 430 H (23-300) U/L 10/29/18 10/29/18 10/30/18 Range/Units 15:20 15:20 06:12 WBC (4.5-11.0) X10^3/uL RBC (4.0-5.2) X10^6/uL Hgb (12.0-16.0) g/dL Hct (36-46) % MCV (80-100) fL MCH (26-34) PG MCHC (30-36) % RDW (11.6-14.8) % Plt Count (150-400) X10^3/uL Neut % (Auto) (50-75) % Lymph % (Auto) (25-40) % [place] % (Auto) (3-14) % Eos % (Auto) (2-4) % Baso % (Auto) (0-2) % Neut # (Auto) (7036-5535) /uL PT (10.1-12.7) SECONDS INR (0.9-1.3) APTT (26.4-36.2) SECONDS Sodium 136 L 136 L (137-145) mmol/L Potassium 4.9 4.9 (3.4-5.1) mmol/L Chloride 103 102 (98-107) mmol/L Carbon Dioxide 23 27 (22-32) mmol/L BUN 29 H 20 H (7-17) mg/dL Creatinine 1.20 H 1.20 H (0.52-1.04) mg/dL Estimated GFR 44.4 L 44.4 L (>60) mL/min BUN/Creatinine Ratio 24.2 H 16.7 (6-22) Glucose 110 157 H (80-110) mg/dL Lactate 1.0 (0.7-2.1) mmol/L Calcium 9.1 8.8 (8.4-10.2) mg/dL Total Bilirubin 0.3 (0.2-1.3) mg/dL AST 26 (14-36) IU/L ALT 12 (9-52) IU/L Alkaline Phosphatase 81 (38-126) U/L Total Protein 7.2 (6.3-8.2) g/dL Albumin 4.2 (3.5-5.0) g/dL Globulin 3.0 (1.7-4.1) g/dL Albumin/Globulin Ratio 1.4 (1.0-2.8) Lipase (23-300) U/L Point of care testing: Point of Care Testing Glucose POC 152 Urine Dip Bedside Urine Glucose Negative Bedside Urine Bilirubin - Negative Bedside Urine Ketone - Negative Urine Specific [place] 1.015 Bedside Urine Occult Blood - Negative Bedside Urine pH 6.0 Bedside Urine Protein - Negative Bedside Urine Urobilinogen - Negative Bedside Urine Nitrite - Negative Bedside Urine Leukocytes - Negative Esterase ECG Data Attestation: I personally reviewed and interpreted this ECG as follows: (Sinus rhythm with rate 70, left bundle branch block, normal axis, no previous for comparison) <Brianna Tao, DO - Last Filed: 10/30/18 19:13> Lab Data Lab Results 10/29/18 10/29/18 10/29/18 Range/Units 15:20 15:20 15:20 WBC 6.2 (4.5-11.0) X10^3/uL RBC 3.77 L (4.0-5.2) X10^6/uL Hgb 11.2 L (12.0-16.0) g/dL Hct 32.3 L (36-46) % MCV 85.6 (80-100) fL MCH 29.8 (26-34) PG MCHC 34.8 (30-36) % RDW 14.5 (11.6-14.8) % Plt Count 234 (150-400) X10^3/uL Neut % (Auto) 60.9 (50-75) % Lymph % (Auto) 28.8 (25-40) % [place] % (Auto) 6.1 (3-14) % Eos % (Auto) 2.7 (2-4) % Baso % (Auto) 1.5 (0-2) % Neut # (Auto) 3800 (4208-7508) /uL PT 10.0 L (10.1-12.7) SECONDS INR 0.9 (0.9-1.3) APTT 29 (26.4-36.2) SECONDS Sodium (137-145) mmol/L Potassium (3.4-5.1) mmol/L Chloride (98-107) mmol/L Carbon Dioxide (22-32) mmol/L BUN (7-17) mg/dL Creatinine (0.52-1.04) mg/dL Estimated GFR (>60) mL/min BUN/Creatinine Ratio (6-22) Glucose (80-110) mg/dL Lactate (0.7-2.1) mmol/L Calcium (8.4-10.2) mg/dL Total Bilirubin (0.2-1.3) mg/dL AST (14-36) IU/L ALT (9-52) IU/L Alkaline Phosphatase (38-126) U/L Total Protein (6.3-8.2) g/dL Albumin (3.5-5.0) g/dL Globulin (1.7-4.1) g/dL Albumin/Globulin Ratio (1.0-2.8) Lipase 430 H (23-300) U/L 10/29/18 10/29/18 10/30/18 Range/Units 15:20 15:20 06:12 WBC (4.5-11.0) X10^3/uL RBC (4.0-5.2) X10^6/uL Hgb (12.0-16.0) g/dL Hct (36-46) % MCV (80-100) fL MCH (26-34) PG MCHC (30-36) % RDW (11.6-14.8) % Plt Count (150-400) X10^3/uL Neut % (Auto) (50-75) % Lymph % (Auto) (25-40) % [place] % (Auto) (3-14) % Eos % (Auto) (2-4) % Baso % (Auto) (0-2) % Neut # (Auto) (9762-5530) /uL PT (10.1-12.7) SECONDS INR (0.9-1.3) APTT (26.4-36.2) SECONDS Sodium 136 L 136 L (137-145) mmol/L Potassium 4.9 4.9 (3.4-5.1) mmol/L Chloride 103 102 (98-107) mmol/L Carbon Dioxide 23 27 (22-32) mmol/L BUN 29 H 20 H (7-17) mg/dL Creatinine 1.20 H 1.20 H (0.52-1.04) mg/dL Estimated GFR 44.4 L 44.4 L (>60) mL/min BUN/Creatinine Ratio 24.2 H 16.7 (6-22) Glucose 110 157 H (80-110) mg/dL Lactate 1.0 (0.7-2.1) mmol/L Calcium 9.1 8.8 (8.4-10.2) mg/dL Total Bilirubin 0.3 (0.2-1.3) mg/dL AST 26 (14-36) IU/L ALT 12 (9-52) IU/L Alkaline Phosphatase 81 (38-126) U/L Total Protein 7.2 (6.3-8.2) g/dL Albumin 4.2 (3.5-5.0) g/dL Globulin 3.0 (1.7-4.1) g/dL Albumin/Globulin Ratio 1.4 (1.0-2.8) Lipase (23-300) U/L Point of care testing: Point of Care Testing Glucose POC 152 Urine Dip Bedside Urine Glucose Negative Bedside Urine Bilirubin - Negative Bedside Urine Ketone - Negative Urine Specific Od[place] 1.015 Bedside Urine Occult Blood - Negative Bedside Urine pH 6.0 Bedside Urine Protein - Negative Bedside Urine Urobilinogen - Negative Bedside Urine Nitrite - Negative Bedside Urine Leukocytes - Negative Esterase Discharge Plan Departure Patient Disposition: Admitted As Inpatient Clinical Impression: Incarcerated hernia Discharge Date/Time: 10/29/18 16:45 Interventions: ED Discharge Assessment Last Done: 10/29/18 16:41 Admit Date/Time: 10/29/18 16:41 Admit Provider: An Aceves <Brianna Tao DO - Last Filed: 10/30/18 19:13> Cosign ED Attending Rivera Attestation: I was immediately available in the department for consultation. Documentation has been reviewed. I agree with assessment and plan.
--- NOTE | 2018-10-29 13:02 | DI.US.S_ITS ---
PROCEDURE: US ABDOMEN LIMITED INDICATIONS: L. inguinal hernia TECHNIQUE: Real-time focused scanning was performed of the inguinal region, with image documentation. COMPARISON: None. FINDINGS: There is an echogenic mass in the lower abdominal area left of midline where pain has persisted for over 5 days, worsening. There appears to be a abdominal wall hernia in this area where the hernia containing space measures up to 3.1 x 2.9 x 3.5 cm. The peritoneal defect measures approximately 0.9 x 1.3 cm. No peristalsing bowel is seen. IMPRESSION: Emergent CT followup likely is warranted given the progressive pain and absence of peristalsis within what appears to be a 3.5 cm maximal dimension hernia sac at the area of maximal progressive pain. Incarcerated hernia is the likely cause. Dictated by: Yuval Cao M.D. on 10/29/2018 at 14:56 Approved by: Yuval Cao M.D. on 10/29/2018 at 14:57
[2018-10-29] MEDS: HYDROCODONE/ACET 5/325 TABLET 1 TAB PO ×2 (13:08→14:45)
[2018-10-29] MEDS: SODIUM CHLORIDE 0.9% 1,000 ML 125 ML IV (15:15)
[2018-10-29] MEDS: MORPHINE 4 MG/ML INJ IV (15:15)
[2018-10-29 15:33] LABS: Add Manual Diff / Slide Review NO; Basophils Percent Auto 1.5 % (0-2); Eosinophils Percent Auto 2.7 % (2-4); Hematocrit 32.3 % (36-46); Hemoglobin 11.2 g/dL (12.0-16.0); Lymphocytes Percent Auto 28.8 % (25-40); Mean Corpuscular HGB Conc 34.8 % (30-36); Mean Corpuscular Hemoglobin 29.8 PG (26-34); Mean Corpuscular Volume 85.6 fL (80-100); Monocytes Percent Auto 6.1 % (3-14); Neutrophils Absolute Auto 3800 /uL (1500-7000); Neutrophils Percent Auto 60.9 % (50-75); Platelet Count 234 X10^3/uL (150-400); Red Blood Cell Count 3.77 X10^6/uL (4.0-5.2); Red Cell Distribution Width 14.5 % (11.6-14.8); White Blood Cell Count 6.2 X10^3/uL (4.5-11.0)
[2018-10-29 15:41] LABS: INR 0.9 (0.9-1.3)
[2018-10-29 15:43] LABS: PTT Partial Thromboplastin Tim 29 SECONDS (26.4-36.2)
[2018-10-29 15:44] LABS: Lipase 430 U/L (23-300)
[2018-10-29 16:47] LABS: Alanine Aminotransferase 12 IU/L (9-52); Albumin 4.2 g/dL (3.5-5.0); Albumin Globulin Ratio 1.4 (1.0-2.8); Alkaline Phosphatase 81 U/L (38-126); Aspartate Aminotransferase 26 IU/L (14-36); BUN Creatinine Ratio 24.2 (6-22); Bilirubin Total 0.3 mg/dL (0.2-1.3); Blood Urea Nitrogen 29 mg/dL (7-17); Calcium 9.1 mg/dL (8.4-10.2); Carbon Dioxide 23 mmol/L (22-32); Chloride 103 mmol/L (98-107); Estimated Glomerular Filt Rate 44.4 mL/min (>60); Glucose 110 mg/dL (80-110); HEMOLYSIS 23 (0-50); Potassium 4.9 mmol/L (3.4-5.1); Sodium 136 mmol/L (137-145); Total Protein 7.2 g/dL (6.3-8.2)
--- NOTE | 2018-10-29 17:34 | P.HP_ITS ---
History of Present Illness Date Patient Seen: 10/29/18 Time Patient Seen: 17:32 Chief complaint: PAIN IN LEFT SIDE GROIN AREA Narrative: Very pleasant 68 year old lady with 5 days of left lower quadrant pain. She reports that it was actually worse yesterday than it is today. She has received pain medicine in the emergency room. She was seen and evaluated there with an ultrasound that revealed a 3 cm mass in her groin suspicious for incarcerated bowel. She says she was told in the past that she had a hernia but she thought they said it was on the right side. She has a problem with uterine prolapse and thought this pain that she was having was related to that. When she realized it was in a different spot, she presented to the emergency room. She says she has not felt well and has had some occasional nausea. She has not had any vomiting. She ate breakfast this morning and took her metformin but she has not had anything to eat since that time. Patient History Medical History Chronic diarrhea (Chronic) GERD with esophagitis (Resolved) History of rectocele (Resolved) Diabetes (Chronic) Giant cell arteritis (Chronic) Hypertension (Chronic) Surgical History History of bladder suspension procedure (Resolved) Family & Social History Family History: Reviewed 10/29/18 by An Aceves MD Social History: household members family caregiver/support person Yes: son Tobacco & Substance use: Smoking Status Never smoker Substance Use Type does not use Meds Home Medications Medication Instructions Recorded Confirmed Type acyclovir 5 % TOPICAL QID 03/18/18 03/18/18 History ascorbic acid (vitamin C) [Vitamin 1,000 mg PO DAILY 03/18/18 03/18/18 History C] atenolol 25 mg PO DAILY 03/18/18 05/28/18 History biotin 5,000 mg PO DAILY 03/18/18 03/18/18 History conjugated estrogens [Premarin] 0.45 mg PO DAILY 03/18/18 03/18/18 History cyclosporine [Restasis] 0.05 % EYE-BOTH BID 03/18/18 03/18/18 History diazepam [Valium] 5 mg PO DAILY PRN 03/18/18 03/18/18 History fluticasone [Flonase Allergy 50 mcg INTRANASAL DAILY PRN 03/18/18 03/18/18 History Relief] folic acid 800 mcg PO DAILY 03/18/18 03/18/18 History meclizine 12.5 mg PO DAILY 03/18/18 03/18/18 History metformin 500 mg PO BID 03/18/18 05/28/18 History neomycin-polymyxin B-dexameth 1 drp EYE-BOTH BID 03/18/18 03/18/18 History [Maxitrol] omega-3 acid ethyl esters [Lovaza] 2 cap PO BID 03/18/18 03/18/18 History pyridoxine (vitamin B6) [Vitamin 50 mg PO BID 03/18/18 03/18/18 History B-6] vitamin B complex 2 tab PO DAILY 03/18/18 03/18/18 History duloxetine 70 mg PO DAILY 05/28/18 05/28/18 History omeprazole 20 mg PO DAILY 05/28/18 05/28/18 History Allergies Allergy/AdvReac Type Severity Reaction Status Date / Time gabapentin Allergy Verified 05/28/18 08:19 Iodinated Contrast- Oral and Allergy Verified 05/28/18 08:19 IV Dye atorvastatin AdvReac Verified 10/29/18 12:53 Review of Systems Review of Systems All systems reviewed & are unremarkable except as noted in HPI and below Exam Vital Signs (past 8 hours): - 10/29/18 12:50 10/29/18 16:00 10/29/18 16:30 Temperature 98.1 F Pulse Rate 86 72 76 Respiratory Rate 18 16 16 Blood Pressure 160/72 H Blood Pressure [Right Arm] 144/58 H 142/57 H Pulse Oximetry 99 96 98 Oxygen Delivery Method Room Air Narrative Exam Narrative: Very pleasant lady accompanied by her son. HEENT: Normocephalic and atraumatic, pupils equal round reactive to light accommodation with anicteric sclera Lungs: Clear bilaterally Heart: Regular rate and rhythm Abdomen: Soft, no incisions noted. Tender palpable mass in the left lower quadrant consistent with ultrasound diagnosis of hernia. No overlying erythema. Active bowel sounds Extremities: Warm and well perfused Objective Labs Result Diagrams: 10/29/18 15:20 10/29/18 15:20 Labs: Laboratory Results - last 24 hr 10/29/18 10/29/18 10/29/18 15:20 15:20 15:20 WBC 6.2 RBC 3.77 L Hgb 11.2 L Hct 32.3 L MCV 85.6 MCH 29.8 MCHC 34.8 RDW 14.5 Plt Count 234 Neut % (Auto) 60.9 Lymph % (Auto) 28.8 [place] % (Auto) 6.1 Eos % (Auto) 2.7 Baso % (Auto) 1.5 Neut # (Auto) 3800 PT 10.0 L INR 0.9 APTT 29 Sodium Potassium Chloride Carbon Dioxide BUN Creatinine Estimated GFR BUN/Creatinine Ratio Glucose Lactate Calcium Total Bilirubin AST ALT Alkaline Phosphatase Total Protein Albumin Globulin Albumin/Globulin Ratio Lipase 430 H 10/29/18 10/29/18 15:20 15:20 WBC RBC Hgb Hct MCV MCH MCHC RDW Plt Count Neut % (Auto) Lymph % (Auto) [place] % (Auto) Eos % (Auto) Baso % (Auto) Neut # (Auto) PT INR APTT Sodium 136 L Potassium 4.9 Chloride 103 Carbon Dioxide 23 BUN 29 H Creatinine 1.20 H Estimated GFR 44.4 L BUN/Creatinine Ratio 24.2 H Glucose 110 Lactate 1.0 Calcium 9.1 Total Bilirubin 0.3 AST 26 ALT 12 Alkaline Phosphatase 81 Total Protein 7.2 Albumin 4.2 Globulin 3.0 Albumin/Globulin Ratio 1.4 [place] [id number] Ultrasound Report Signed Patient: Qiana Jackson MR#: [id number] : 1950 Acct:[id number] Age/Sex: 68 / F Date of Service: 10/29/18 Loc: ED Accession Number: [id number] Procedure: US abdomen limited Ordering Provider: Shikha Killian P.A-C PROCEDURE: US ABDOMEN LIMITED INDICATIONS: L. inguinal hernia TECHNIQUE: Real-time focused scanning was performed of the inguinal region, with image documentation. COMPARISON: None. FINDINGS: There is an echogenic mass in the lower abdominal area left of midline where pain has persisted for over 5 days, worsening. There appears to be a abdominal wall hernia in this area where the hernia containing space measures up to 3.1 x 2.9 x 3.5 cm. The peritoneal defect measures approximately 0.9 x 1.3 cm. No peristalsing bowel is seen. IMPRESSION: Emergent CT followup likely is warranted given the progressive pain and absence of peristalsis within what appears to be a 3.5 cm maximal dimension hernia sac at the area of maximal progressive pain. Incarcerated hernia is the likely cause. Dictated by: Yuval Cao M.D. on 10/29/2018 at 14:56 Approved by: Yuval Cao M.D. on 10/29/2018 at 14:57 Assessment & Plan Plan: Assessment/Plan Narrative: Very pleasant 68-year-old lady with an incarcerated left inguinal hernia. Her presentation is certainly consistent with bowel involvement though she does not have a complete bowel obstruction. Her elevated lipase and clinical picture are consistent with bowel incarceration. We have discussed the risks and benefits of hernia repair and the patient expressed a desire to complete the procedure today.
--- NOTE | 2018-10-29 18:55 | P.OP_ITS ---
Operative Date/Time/Diagnoses Date of procedure: 10/29/18 Pre-op diagnosis: Incarcerated inguinal hernia Post-op diagnosis: same Procedure & Clinicians Procedure: Repair of incarcerated inguinal hernia Same procedure as scheduled: Yes Indications: Incarcerated inguinal hernia Surgeon: An Aceves Anesthesia Type: General (Dr. Luciano) and Local Operative Notes Findings: Small direct hernia at the superior edge of the left pubic tubercle Closure Type: primary Specimen(s): none sent Implants & Drains: Large Pro Loop mesh patch only Estimated Blood Loss (mL): 5 Procedure in detail: After obtaining informed consent, patient brought to the operating room and placed in the supine position on the operating table. Following successful induction of general endotracheal anesthesia, appropriate padding of all bony prominences, and placement of appropriate monitors, the abdomen is prepped and draped in the standard surgical fashion. A time-out was held per [facility] protocol. We began the procedure by creating an ilioinguinal nerve block by infiltrating a mixture of local anesthetics medial to the left anterior superior iliac spine. We then palpated the hernia mass and created incision just superior and lateral to the mass. Again this was done after infiltrating with local anesthetic. The incision was carried down through the skin subcutaneous tissue. The external oblique aponeurosis was identified and opened in the direction of its fibers. The hernia sac was identified medially and carefully reduced back into the abdominal cavity. The contents of the hernia sac were bruised in appearance but grossly viable. There was no obvious bowel involved. Only a direct hernia was identified. There was no indirect component. What was left was a 1/2 cm fascial defect at the superior edge of the left tubercle. The fascia in this area had good turgor so we closed it primarily. It then applied a Pro Loop large patch directly over the area of the repair. This was done by sewing it medially to the pubic tubercle and tacking it laterally under the external oblique aponeurosis. The incision was then irrigated with warm saline solution containing Ancef and then aspirated free of all fluid and particulate matter. The repair was checked once again. The external oblique aponeurosis was closed with a running locking Vicryl suture. Cecilia's fascia was closed in the same manner, and Monocryl was placed in the skin. All sponge , needle, and instrument counts were correct at the conclusion of the case. Patient was allowed to awaken from anesthesia without difficulty and taken to the post anesthesia care unit in good condition. Complications: none Condition: stable Disposition: PACU Plan for aftercare: 1. Admit for observation 2. Hopefully discharge home in the morning if all goes well over the evening.
[2018-10-29] MEDS: LACTATED RINGERS 1,000 ML 75 ML IV (19:52)
[2018-10-29] MEDS: OXYCODONE IR 5 MG TABLET PO (21:28)
[2018-10-30] VITALS (7 sets, daily range): BP systolic 115–155; BP diastolic 52–88; PULSE 74–89; RESP 14–19; TEMP 36.3–37.2; O2SAT 91–97
[2018-10-30] MEDS: OXYCODONE IR 5 MG TABLET PO ×4 (00:25→14:52)
--- NOTE | 2018-10-30 01:19 | PC.NURSE ---
Appeals Analyst Note: 0025: Awake, assisted up to bathroom with 2 person assist, voided. Pt unsteady on her feet and dizzy. Assisted back to bed and with repositioning. Abdominal incision open to air, and dermabond intact: no redness or drainage noted. IV in place in rt forearm with LR infusing at 75cc/hr. Medicated for pain with Oxycodone 5mg. Pt declined scheduled Valium 5mg po.
[2018-10-30] MEDS: PANTOPRAZOLE 20 MG TABLET PO ×2 (06:35→20:53)
[2018-10-30 06:37] LABS: BUN Creatinine Ratio 16.7 (6-22); Blood Urea Nitrogen 20 mg/dL (7-17); Calcium 8.8 mg/dL (8.4-10.2); Carbon Dioxide 27 mmol/L (22-32); Chloride 102 mmol/L (98-107); Estimated Glomerular Filt Rate 44.4 mL/min (>60); Glucose 157 mg/dL (80-110); HEMOLYSIS < 15 (0-50); Potassium 4.9 mmol/L (3.4-5.1); Sodium 136 mmol/L (137-145)
[2018-10-30] MEDS: METFORMIN HCL 500 MG TABLET 1000 MG PO ×2 (08:54→17:16)
[2018-10-30] MEDS: DOCUSATE 100 MG CAPSULE PO (08:56)
--- NOTE | 2018-10-30 09:01 | CM.DANOTE ---
DCP: Case received, EMR reviewed and met with patient. Introduced self and role. DCP template completed with information currently available. Patient is a 68 year old female who admitted yesterday afternoon to the care of the hospitalist team. PCP: Dr. Galloway. Payer: confirmed: Medicare/Prosodic. Patient came to hospital with symptoms of pain in the lieft side of her groin. Patient carries diagnosis of Incarcerated Inguinal Hernia. Met briefly with patient in room. Pleasant, alert and oriented. Lives [facility] alone, but has a son named Alfonso in the area. Is independent, and drives. P: DCP to continue to follow closely. Patient should be able to return home when stable. Amy Borges RN/Facilities Engineering Manager
[2018-10-30] MEDS: LACTATED RINGERS 1,000 ML 75 ML IV ×2 (09:55→21:56)
[2018-10-30] MEDS: ONDANSETRON 4 MG/2 ML INJ IV (09:55)
--- NOTE | 2018-10-30 15:20 | P.PN_ITS ---
Subjective Date Patient Seen: 10/30/18 Time Patient Seen: 15:17 Interval history: Postop day 1 after incarcerated inguinal hernia repair. Qiana reports that she is in terrible pain. She is concerned because she has had some incontinence of urine and this is a new thing for her. She says her pain medication is doing very little for her and she is extremely uncomfortable. She had some nausea earlier today but she received a dose of Zofran and that is better. She reports that she was able to eat and she is passing flatus. Exam Vital Signs (past 8 hours): - 10/30/18 07:30 10/30/18 12:00 Temperature 97.6 F 97.4 F L Pulse Rate 85 74 Respiratory Rate 14 16 Blood Pressure 142/88 H 139/69 Pulse Oximetry 91 95 Oxygen Delivery Method Room Air Oxygen Flow Rate 0 Narrative Exam Narrative: Pleasant lady who is lying on her right side. She appears reasonably comfortable. Lungs: Clear bilaterally Heart: Regular rate and rhythm Abdomen: Soft, tender to palpation from the incision up to the anterior superior iliac spine. No visible bruising. The incision is well approximated. Extremities: Warm and well perfused. Objective Labs Result Diagrams: 10/29/18 15:20 10/30/18 06:12 Labs: Laboratory Results - last 24 hr 10/29/18 10/29/18 10/29/18 15:20 15:20 15:20 WBC 6.2 RBC 3.77 L Hgb 11.2 L Hct 32.3 L MCV 85.6 MCH 29.8 MCHC 34.8 RDW 14.5 Plt Count 234 Neut % (Auto) 60.9 Lymph % (Auto) 28.8 Elliott % (Auto) 6.1 Eos % (Auto) 2.7 Baso % (Auto) 1.5 Neut # (Auto) 3800 PT 10.0 L INR 0.9 APTT 29 Sodium Potassium Chloride Carbon Dioxide BUN Creatinine Estimated GFR BUN/Creatinine Ratio Glucose Lactate Calcium Total Bilirubin AST ALT Alkaline Phosphatase Total Protein Albumin Globulin Albumin/Globulin Ratio Lipase 430 H 10/29/18 10/29/18 10/30/18 15:20 15:20 06:12 WBC RBC Hgb Hct MCV MCH MCHC RDW Plt Count Neut % (Auto) Lymph % (Auto) Elliott % (Auto) Eos % (Auto) Baso % (Auto) Neut # (Auto) PT INR APTT Sodium 136 L 136 L Potassium 4.9 4.9 Chloride 103 102 Carbon Dioxide 23 27 BUN 29 H 20 H Creatinine 1.20 H 1.20 H Estimated GFR 44.4 L 44.4 L BUN/Creatinine Ratio 24.2 H 16.7 Glucose 110 157 H Lactate 1.0 Calcium 9.1 8.8 Total Bilirubin 0.3 AST 26 ALT 12 Alkaline Phosphatase 81 Total Protein 7.2 Albumin 4.2 Globulin 3.0 Albumin/Globulin Ratio 1.4 Lipase Assessment & Plan Plan: Assessment/Plan Narrative: 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 I will not give her Toradol as she has some degree of renal insufficiency been though her BUN has normalized. We will check a urinalysis to be sure she does not have a urinary tract infection that could be contributing to her incontinence. She needs more time. Hopefully she will continue to improve.
[2018-10-30] MEDS: ACYCLOVIR 5% OINT 15 GM 1 APPLIC TOP (17:16)
--- NOTE | 2018-10-30 19:59 | PC.NURSE ---
Addendum entered by Lucy Vicente R.N. 10/30/18 23:29: Able to sleep when not interrupted by staff. Declined to wear scd's. UA collected and sent to lab as ordered. Original Note: Morphine energy conservation representative set up as ordered by MD and pt and pt's son present in room were instructed in its use. Pt rates incisional pain 8/10. Pt is able to dose self. Denies nausea, but does not exhibit large appetite for dinner. Assisted to commode to void as states prefers this over ambulating into bathroom. Pt requests help from son for positioning in bed. Dermabond intact to left groin incision. Wound is without drainage.
[2018-10-30 22:10] LABS: Appearance Urine UA CLEAR; Bacteria Urine None Seen; Bilirubin Urine UA NEGATIVE (NEGATIVE); Color Urine UA YELLOW; Glucose Urine UA NEGATIVE (Negative); Ketones Urine UA NEGATIVE (NEGATIVE); Leukocyte Esterase Urine UA NEGATIVE (NEGATIVE); Nitrite Urine UA NEGATIVE (Negative); Occult Blood Urine UA NEGATIVE (Negative); Protein Urine UA NEGATIVE (Negative); RBC Urine None Seen (0-5/HPF); Urobilinogen Urine UA 0.2 E.U./dL (0.2); WBC Urine None Seen (0-5/HPF)
[2018-10-30 22:15] LABS: Culture Indicated Urine Cult Not Indicated; Squamous Epithelial Cell Urine 1-5 /HPF; Urine Comments Microscopic Normal
[2018-10-30] MEDS: MORPHINE PCA 30 MG/30 ML PCA.VIAL IV (22:29)
--- NOTE | 2018-10-31 03:07 | PC.NURSE ---
Racking Technician Note: 0030: Awake, resting in bed. Vital signs stable. IV in place in rt arm. FINISHER DENTURE with Morphine in line and pt using it for pain control. Incision is open to air and dermabond is intact.
[2018-10-31 03:59] VITALS: BP 147/67; PULSE 78; RESP 16; TEMP 36.7; O2SAT 98
[2018-10-31 06:33] LABS: Add Manual Diff / Slide Review NO; Eosinophils Percent Auto 1.7 % (2-4); Hematocrit 31.3 % (36-46); Hemoglobin 10.5 g/dL (12.0-16.0); Lymphocytes Percent Auto 20.7 % (25-40); Mean Corpuscular HGB Conc 33.7 % (30-36); Mean Corpuscular Hemoglobin 28.9 PG (26-34); Mean Corpuscular Volume 85.6 fL (80-100); Monocytes Percent Auto 6.9 % (3-14); Neutrophils Absolute Auto 4300 /uL (1500-7000); Neutrophils Percent Auto 69.7 % (50-75); Platelet Count 189 X10^3/uL (150-400); Red Blood Cell Count 3.66 X10^6/uL (4.0-5.2); Red Cell Distribution Width 14.4 % (11.6-14.8); White Blood Cell Count 6.2 X10^3/uL (4.5-11.0)
[2018-10-31] MEDS: MORPHINE PCA 30 MG/30 ML PCA.VIAL IV (06:43)
[2018-10-31] MEDS: PANTOPRAZOLE 20 MG TABLET PO ×2 (06:43→20:43)
[2018-10-31 06:54] LABS: Alanine Aminotransferase 18 IU/L (9-52); Albumin 3.5 g/dL (3.5-5.0); Albumin Globulin Ratio 1.3 (1.0-2.8); Alkaline Phosphatase 67 U/L (38-126); Aspartate Aminotransferase 20 IU/L (14-36); Bilirubin Total 0.3 mg/dL (0.2-1.3); Blood Urea Nitrogen 13 mg/dL (7-17); Calcium 8.7 mg/dL (8.4-10.2); Carbon Dioxide 27 mmol/L (22-32); Chloride 100 mmol/L (98-107); Estimated Glomerular Filt Rate 54.8 mL/min (>60); Globulin 2.8 g/dL (1.7-4.1); Glucose 151 mg/dL (80-110); HEMOLYSIS < 15 (0-50); Potassium 4.6 mmol/L (3.4-5.1); Sodium 136 mmol/L (137-145); Total Protein 6.3 g/dL (6.3-8.2)
[2018-10-31 07:45] VITALS: BP 146/65; PULSE 78; RESP 14; TEMP 36.7; O2SAT 93
--- NOTE | 2018-10-31 07:49 | P.PN_ITS ---
Subjective Date Patient Seen: 10/31/18 Time Patient Seen: 07:46 Interval history: Patient does not have any issues with nausea or vomiting this morning. The MID LEVEL NET DEVELOPER controlled her pain overnight. She is not using it much this morning. She overall is feeling better than yesterday. She reports spontaneous normal bladder function. She has moved her bowels once since surgery. Tolerated regular diet last evening without issue. Other than localized incisional pain she is not experience any significant abdominal pain except over near the right groin region. She is somewhat concerned about a hernia on that side. She notes no mass however. Denies chest pain or shortness of breath. Has been ambulating without difficulty. Exam Vital Signs (past 8 hours): - 10/31/18 03:59 Temperature 98.1 F Pulse Rate 78 Respiratory Rate 16 Blood Pressure 147/67 H Pulse Oximetry 98 Oxygen Delivery Method Room Air Oxygen Flow Rate 0 Narrative Exam Narrative: Well-nourished well-developed thin female in no acute distress lying comfortably in bed. Alert oriented x3 No fevers. No tachycardia. Blood pressure is normal Adequate urine output Regular rate and rhythm Abdomen is soft and nondistended. She is mildly tender in the right lower quadrant but certainly without guarding or rebound. I appreciate no masses or obvious inguinal hernias in the supine position. Left inguinal incision is clean, dry, and intact. There is minimal ecchymoses. No hematoma or seroma. No obvious early recurrent hernia. She is appropriately tender to palpation. Extremities show no clubbing or cyanosis Objective Labs Result Diagrams: 10/31/18 06:16 10/31/18 06:16 Labs: Laboratory Results - last 24 hr 10/30/18 10/31/18 10/31/18 21:30 06:16 06:16 WBC 6.2 RBC 3.66 L Hgb 10.5 L Hct 31.3 L MCV 85.6 MCH 28.9 MCHC 33.7 RDW 14.4 Plt Count 189 Neut % (Auto) 69.7 Lymph % (Auto) 20.7 L Lamar % (Auto) 6.9 Eos % (Auto) 1.7 L Baso % (Auto) 1.0 Neut # (Auto) 4300 Sodium 136 L Potassium 4.6 Chloride 100 Carbon Dioxide 27 BUN 13 Creatinine 1.00 Estimated GFR 54.8 L BUN/Creatinine Ratio 13.0 Glucose 151 H Calcium 8.7 Total Bilirubin 0.3 AST 20 ALT 18 Alkaline Phosphatase 67 Total Protein 6.3 Albumin 3.5 Globulin 2.8 Albumin/Globulin Ratio 1.3 Urine Color Yellow Urine Appearance Clear Urine pH 6.0 Ur Specific Ullin 1.010 Urine Protein Negative Urine Glucose (UA) Negative Urine Ketones Negative Urine Occult Blood Negative Urine Nitrate Negative Urine Bilirubin Negative Urine Urobilinogen 0.2 Ur Leukocyte Esterase Negative Urine RBC None seen Urine WBC None seen Ur Squamous Epith Cells 1-5 /hpf Urine Bacteria None seen Ur Culture Indicated? Cult not indicated Micro UA Comment Microscopic normal Assessment & Plan Plan: Assessment/Plan Narrative: 68-year-old female postoperative day 2 from left inguinal hernia repair for incarcerated hernia. Mesh was placed. She has no evidence of any infectious or other issues at this moment. Overall she is improving. Will Hep-Lock the IV and discontinue the MID LEVEL NET DEVELOPER this morning. Convert to oral analgesia. Ambulate as tolerated. We discussed lifting restriction of no more than 15 lb for 4 weeks. She may shower. I also discussed anticipated ongoing wound healing over the next 4-6 weeks. I reassured her regarding the right-sided abdominal pain which does not appear to be anything at this point related to hernia or other obvious pathology. All questions were answered to her satisfaction, and she voiced understanding. Orders were written. If she continues to do well then we will potentially discharge her home today. She was agreeable to the plan.
[2018-10-31] MEDS: METFORMIN HCL 500 MG TABLET 1000 MG PO ×2 (09:05→16:17)
[2018-10-31] MEDS: FLUTICASONE 120 SPRAY/16 GM SPRAY.SUSP NASAL (09:05)
[2018-10-31] MEDS: DOCUSATE 100 MG CAPSULE PO (09:06)
--- NOTE | 2018-10-31 11:41 | PC.NURSE ---
Incision to r.lower quad is cdi with durmobond. O redness at incision and no drainage. Pts PLATE WORKER HELPER will be stopped at lunch time and she will be transitioning over to po pain medication. She will be heplocked after PLATE WORKER HELPER stopped. She is in good spirits and is resting comfortably on her r.side.
[2018-10-31 12:05] VITALS: BP 136/67; PULSE 73; RESP 16; TEMP 36.3; O2SAT 92
[2018-10-31 15:37] VITALS: BP 139/65; PULSE 75; RESP 16; TEMP 36.8; O2SAT 92
[2018-10-31] MEDS: ACYCLOVIR 5% OINT 15 GM 1 APPLIC TOP (16:14)
[2018-10-31] MEDS: OXYCODONE IR 5 MG TABLET PO ×2 (16:17→20:42)
--- NOTE | 2018-10-31 16:33 | PC.NURSE ---
Addendum entered by Lucy Vicente R.N. 10/31/18 20:44: Dr. Khanna in to see pt and pt's son. Agreed upon to discharge in the morning by all parties. Original Note: Addendum entered by Lucy Vicente R.N. 10/31/18 20:06: Pt's son continues to inquire of this tag writer if pt will be discharged this evening. Message left in O.R. for Dr. Khanna stating pt and son's desire. Original Note: Addendum entered by Lucy Vicente R.N. 10/31/18 18:57: Awake quietly resting in bed. Admits to improved pain relief with oxycodone and tylenol combination. Also has ice to left groin. Awaiting Dr. Khanna to see patient for discharge per MD decision and pt desire. Original Note: Pt lying flat in bed, supine, and states desires to be discharged today. Dr. Khanna in house and was made aware although surgeon is on way to [facility] for a case. Pt's son is present in pt's room, attentive and involved in pt's care. Pt admits to surgical pain 6/10 and was given oxycodone with snack. Inquired if pt has ambulated postop in hallway and pt reports has not. Gait belt, walker and DISTRIBUTOR ADVERTISING MATERIAL assistance to ambulate in hallway. Denies dizziness when up. Up to chair for dinner.
[2018-10-31] MEDS: ACETAMINOPHEN 325 MG TABLET 650 MG PO ×2 (17:25→23:55)
[2018-10-31 20:25] VITALS: BP 139/50; PULSE 73; RESP 16; TEMP 36.7; O2SAT 94
[2018-10-31] MEDS: SODIUM CHLORIDE 0.9% FLUSH 10 ML IV (20:43)
[2018-10-31 23:45] VITALS: BP 135/83; PULSE 71; RESP 16; TEMP 36.6; O2SAT 96
[2018-10-31] MEDS: diazePAM 5 MG TABLET PO (23:55)
[2018-11-01] MEDS: OXYCODONE IR 5 MG TABLET PO ×2 (02:11→09:11)
--- NOTE | 2018-11-01 04:51 | PC.NURSE ---
Pt is A and O x 4. VSS. Pt has routinely rated her pain 5-6/10 and has used 5 mg po oxycodone with 650 mg APAP x 1 this shift. She has been able to sleep. Incision site C/D/I. +BTs, S1, S2. LS clear.
[2018-11-01 05:33] VITALS: BP 146/59; PULSE 71; RESP 14; TEMP 36.4; O2SAT 95
[2018-11-01] MEDS: PANTOPRAZOLE 20 MG TABLET PO (06:05)
[2018-11-01 08:29] VITALS: BP 148/74; PULSE 72; RESP 16; TEMP 36.2; O2SAT 96
[2018-11-01 09:08] VITALS: BP 146/59
[2018-11-01] MEDS: METFORMIN HCL 500 MG TABLET 1000 MG PO (09:08)
[2018-11-01] MEDS: SODIUM CHLORIDE 0.9% FLUSH 10 ML IV (09:08)
[2018-11-01] MEDS: LISINOPRIL 5 MG TABLET PO (09:08)
[2018-11-01] MEDS: DOCUSATE 100 MG CAPSULE PO (10:19)
--- NOTE | 2018-11-01 11:02 | PC.NURSE ---
Pt ready for discharge home with gisele Hamilton. Went over d/c instructions with Pt and Son-discussed d/c meds, time of last dose, reviewed stroke education, encouraged fluid intake to prevent constipation. Pt denies further questions and was taken out via w/c by CLINICAL LABORATORY SERVICE TEACHER to pov with Gisele Hamilton and all belongings.
--- NOTE | 2018-11-05 10:25 | SUR.OPER ---
THIS CHART IS PAPER VERSION SEE CHART FOR DETAILS. TIMES ADDED TO ELECTRONIC VERSION TO GENERATE BILLING
== END 2018-11-01 11:04 | disposition home or self-care (01) | DRG 352 ==
LOC: ED 14:07 → AC 16:42
PROVIDERS: Admitting Provider Surgery; Emergency Provider Internal Medicine; PCP Family Medicine; Visit Provider Surgery
DX: K40.30 Unilateral inguinal hernia, with obstruction, without gangrene, not specified as recurrent (principal); K21.9 Gastro-esophageal reflux disease without esophagitis; E11.9 Type 2 diabetes mellitus without complications; I10 Essential (primary) hypertension; M31.6 Other giant cell arteritis; Z79.84 Long term (current) use of oral hypoglycemic drugs
CPT/HCPCS: 36415; 36591; 49507; 76705; 80048; 80053; 81001; 81003; 82962; 83605; 83690; 85025; 85610; 85730; 93005; 96361; 96374; 99220; 99223; 99283; 99284; C1781; G0378; J2270; J2405; J2704; J3010

== ENCOUNTER → 2018-12-18 14:20 | Outpatient (CLI) | payer MEDICARE, OTHER, SELFPAY ==
--- NOTE | 2018-12-18 | DI.CT.S_ITS ---
PROCEDURE: CT ABDOMEN PELVIS WO CON INDICATIONS: RIGHT LOWER QUADRANT PAIN TECHNIQUE: Noncontrast 5 mm thick sections acquired from the diaphragms to the symphysis. 5 mm coronal and sagittal reformats were then performed. For radiation dose reduction, the following was used: automated exposure control, adjustment of mA and/or kV according to patient size. COMPARISON: None. FINDINGS: Image quality: Excellent. ABDOMEN: Lung bases: Lung bases are clear. Heart size is normal. Solid organs: Liver is normal in size. Gallbladder is mildly contracted without calcified gallstones identified. No gallbladder wall thickening or fluid are in the gallbladder is identified.. Pancreas is normal in contours. Spleen is normal in size. No adrenal nodules. Kidneys are normal in size, without hydronephrosis or nephrolithiasis. Peritoneum and bowel: Unenhanced bowel loops demonstrate normal wall thickness and caliber. Sigmoid diverticulosis without evidence of diverticulitis. No free fluid or air or abscess cavity. A normal appendix is identified. Nodes and vessels: No retroperitoneal or mesenteric adenopathy by size criteria. Aorta and inferior vena cava are normal in caliber. Miscellaneous: No ventral hernias. PELVIS: Genitourinary: Bladder wall thickness is normal. Remote hysterectomy. Miscellaneous: No inguinal hernias or adenopathy. Bones: No suspicious bony lesions. No vertebral body compression fractures. IMPRESSION: 1. Remote hysterectomy. 2. Sigmoid diverticulosis without diverticulitis. 3. Otherwise unremarkable noncontrast CT. Normal appendix. No renal stones or hydronephrosis. No acute abdominal process. Dictated by: Torres Merritt M.D. on 12/18/2018 at 16:25 Approved by: Torres Merritt M.D. on 12/18/2018 at 16:29
== END ==
PROVIDERS: PCP Obstetrics & Gynecology; Visit Provider Surgery
DX: R10.31 Right lower quadrant pain (principal); K57.30 Diverticulosis of large intestine without perforation or abscess without bleeding; Z90.710 Acquired absence of both cervix and uterus
CPT/HCPCS: 74176

== ENCOUNTER 2018-12-18 14:39 | Inpatient (IN) | payer MEDICARE, OTHER, SELFPAY ==
[2018-11-10 14:35] VITALS: BMI 24.3
[2018-12-18] VITALS (8 sets, daily range): BP systolic 105–139; BP diastolic 49–72; PULSE 64–84; RESP 15–28; TEMP 36.5–37; O2SAT 93–100; BMI 23.6
--- NOTE | 2018-12-18 15:46 | DI.RAD.S_ITS ---
PROCEDURE: XR CHEST 1V INDICATIONS: chest pain TECHNIQUE: One view of the chest was acquired. COMPARISON: None. FINDINGS: Surgical changes and devices: None. Lungs and pleura: Lungs are clear. No pleural effusions or pneumothorax. Mediastinum: Mediastinal contours appear normal. Heart size is normal. Bones and chest wall: No suspicious bony lesions. Overlying soft tissues appear unremarkable. IMPRESSION: No acute cardiopulmonary pathology. Dictated by: Tacos Leger M.D. on 12/18/2018 at 16:23 Approved by: Tacos Leger M.D. on 12/18/2018 at 16:24
[2018-12-18 16:19] LABS: Prothrombin Time 10.9 SECONDS (10.1-12.7)
[2018-12-18 16:21] LABS: PTT Partial Thromboplastin Tim 29 SECONDS (26.4-36.2)
[2018-12-18 16:24] LABS: Alanine Aminotransferase 20 IU/L (9-52); Albumin 4.2 g/dL (3.5-5.0); Albumin Globulin Ratio 1.3 (1.0-2.8); Alkaline Phosphatase 70 U/L (38-126); Aspartate Aminotransferase 30 IU/L (14-36); Bilirubin Total 0.3 mg/dL (0.2-1.3); Blood Urea Nitrogen 21 mg/dL (7-17); Calcium 9.2 mg/dL (8.4-10.2); Carbon Dioxide 22 mmol/L (22-32); Chloride 99 mmol/L (98-107); Creatine Kinase 42 U/L (30-135); Estimated Glomerular Filt Rate 37.2 mL/min (>60); Globulin 3.3 g/dL (1.7-4.1); Glucose 142 mg/dL (80-110); HEMOLYSIS 17 (0-50); Lipase 298 U/L (23-300); Potassium 4.3 mmol/L (3.4-5.1); Sodium 132 mmol/L (137-145); Total Protein 7.5 g/dL (6.3-8.2)
[2018-12-18 16:26] LABS: Add Manual Diff / Slide Review NO; Basophils Absolute Auto 0 /uL (0-100); Basophils Percent Auto 1.1 % (0-2); Eosinophils Absolute Auto 0 /uL (0-450); Eosinophils Percent Auto 0.3 % (2-4); Hematocrit 32.6 % (36-46); Hemoglobin 11.1 g/dL (12.0-16.0); Lymphocytes Absolute Auto 800 /uL (1100-4500); Lymphocytes Percent Auto 19.3 % (25-40); Mean Corpuscular HGB Conc 33.9 % (30-36); Mean Corpuscular Hemoglobin 28.9 PG (26-34); Mean Corpuscular Volume 85.3 fL (80-100); Monocytes Absolute Auto 400 /uL (0-900); Neutrophils Absolute Auto 3000 /uL (1500-7000); Neutrophils Percent Auto 69.3 % (50-75); Platelet Count 182 X10^3/uL (150-400); Red Blood Cell Count 3.82 X10^6/uL (4.0-5.2); Red Cell Distribution Width 14.3 % (11.6-14.8); White Blood Cell Count 4.3 X10^3/uL (4.5-11.0)
[2018-12-18 16:35] LABS: Troponin I 0.047 ng/mL (0.01-0.034)
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
[2018-12-18] MEDS: SODIUM CHLORIDE 0.9% 1,000 ML 1000 ML IV (18:46)
[2018-12-18] MEDS: ONDANSETRON 4 MG/2 ML INJ IV (18:47)
[2018-12-18 19:14] LABS: D Dimer 325 ng/mL (<230)
[2018-12-18 19:28] LABS: B Type Natriuretic Peptide < 100 (<100); Troponin I 0.037 ng/mL (0.01-0.034)
[2018-12-18] MEDS: diphenhydrAMINE 50 MG/ML VIAL IV (20:09)
[2018-12-18] MEDS: methylPREDNISolone 125 MG/2 ML VIAL IV (20:09)
[2018-12-18] MEDS: OSELTAMIVIR 75 MG CAPSULE PO (22:54)
[2018-12-18] MEDS: ENOXAPARIN 60 MG/0.6 ML SYRINGE SUBCUT (22:55)
[2018-12-19] VITALS (8 sets, daily range): BP systolic 114–138; BP diastolic 53–67; PULSE 53–64; RESP 16–20; TEMP 36.3–36.4; O2SAT 96–100
--- NOTE | 2018-12-19 00:02 | PC.NURSE ---
Patient has had weight lossw of 50 pounds due to grieving for who .
[2018-12-19] MEDS: SODIUM CHLORIDE 0.9% 1,000 ML 100 ML IV (03:02)
--- NOTE | 2018-12-19 03:15 | PC.NURSE ---
Patient alert and oriented. Desired 1 L O2 for comfort. IVF initiated, NS 100. IV patent. Came to floor at 2350. Bed alarm is activated.
--- NOTE | 2018-12-19 05:01 | PM.HP.1 ---
History of Present Illness Date Patient Seen: 12/19/18 Time Patient Seen: 01:05 Chief complaint: DIZZY,SHORTNESS OF BREATH,VOMITING,DIARRHEA Narrative: This is a 68-year-old female patient with a history of diabetes, vertigo, dyspepsia, anxiety and irritable bowels who presents to the ER for complaints of shortness of breath dizziness, nausea, vomiting and diarrhea. At this time the patient is a poor historian unable to provide significant medical history. Family is unavailable at the bedside thus most information is obtained from chart review and information obtained from the patient's daughter all present in the ER. The patient reportedly has had chest pain with shortness of breath for 2 days that has become progressively worse. Pain has been described as pleuritic with the patient stating ?it hurts to breathe?. Patient has shortness of breath at rest worsened on exertion. She has associated complaints of orthostasis, nausea vomiting 3 times today and increasing confusion. The patient had an incarcerated hernia repair on 10/31/2018 a recent cardiac workup at [facility] in July for what ended up being a sternal contusion. Upon arrival in the emergency department the patient had a blood pressure 108/72, heart rate of 82, respirations 15 and temperature of 98.6?. She was 93% on room air. On laboratory analysis the patient's CBC was within normal limits, on chemistry she has a mild hyponatremia at 132 and an elevated creatinine at 1.4 with BUN of 21 and a BUN creatinine ratio of 15. There are no prior labs for comparison is to identify whether the elevated creatinine is acute or chronic. Patient did have influenza screening which was positive for influenza A. Due to her chest pain with coughing and burning troponins were assessed and were initially 0.047 an approximate 3 hr later was 0.037. The patient had a CTA completed which finds no occlusions but notes filling defects in the peripheral segmental arteries as well as nonspecific mediastinal adenopathy. Is also noted on CT that she has multiple hypoattenuating subcentimeter foci in the liver. Twelve lead EKG is reported as completed in the ER but not available for review. The patient's chest x-ray showed no acute cardiopulmonary changes. In the ER the patient received a 1 L of saline bolus. The patient is admitted to the hospital related to chest pain mildly elevated troponins and confusion. Patient History Medical History Diabetes (Acute) GERD (gastroesophageal reflux disease) (Acute) Giant cell arteritis (Acute) H/O: hysterectomy (Acute) Hypertension (Acute) Surgical History History of hernia repair (Acute) Social History household members: none Smoking Status: Never smoker alcohol intake: current Family & Social History Social History: household members none Prior Living Arrangements House Safety & Behavioral: Feels Safe in Current Yes Environment Been Physically Hurt or No Threatened By a Person Suicidal Ideation Description None Suicide Plan Description No Plan Tobacco & Substance use: Smoking Status Never smoker alcohol intake current alcohol intake frequency a few times a month Substance Use Type tranquilizers Comment: At the time of encounter the patient is unable to provide adequate historical information related to confusional state. Advanced directives: No records found of advanced directives, family unavailable, patient will be full code until patient wishes can be more appropriately ascertained. Meds Home Medications Medication Instructions Recorded Confirmed Type L.acid-L.casei-B.bif-B.jyoti-FOS 1 - 3 cap PO DAILY 12/18/18 12/18/18 History [Probiotic Blend] Levemir FlexTouch U-100 Insuln 10 units SUBCUT BEDTIME PRN 12/18/18 12/18/18 History Vitamin B-6 30 mg PO DAILY 12/18/18 12/18/18 History acyclovir 800 mg PO DAILY PRN 12/18/18 12/18/18 History alpha lipoic acid 600 mg PO DAILY 12/18/18 12/18/18 History ascorbic acid (vitamin C) 1 g PO DAILY 12/18/18 12/18/18 History aspirin 81 mg PO DAILY 12/18/18 12/18/18 History cholecalciferol (vitamin D3) 1,000 unit PO DAILY 12/18/18 12/18/18 History [Vitamin D3] conjugated estrogens [Premarin] 0.45 mg PO DAILY 12/18/18 12/18/18 History cyclosporine [Restasis] 1 drp EYE-BOTH BID 12/18/18 12/18/18 History diazepam 5 mg PO BID PRN 12/18/18 12/18/18 History dicyclomine 10 mg PO DAILY PRN 12/18/18 12/18/18 History fluticasone 1 spray INTRANASAL DAILY 12/18/18 12/18/18 History folic acid 0.8 mg PO DAILY 12/18/18 12/18/18 History insulin lispro [Humalog KwikPen 0 - 2 units SUBCUT BEDTIME PRN 12/18/18 12/18/18 History Insulin] lisinopril 5 mg PO QPM 12/18/18 12/18/18 History meclizine 12.5 mg PO PRN PRN 12/18/18 12/18/18 History metformin 500 mg PO BID 12/18/18 12/18/18 History mupirocin 1 applic TOPICAL BID PRN 12/18/18 12/18/18 History ranitidine HCl 150 mg PO BID 12/18/18 12/18/18 History sertraline 50 mg PO QPM 12/18/18 12/18/18 History vitamin B complex 1 tab PO DAILY 12/18/18 12/18/18 History Allergies Allergy/AdvReac Type Severity Reaction Status Date / Time atorvastatin Allergy Verified 12/18/18 14:51 gabapentin Allergy Verified 12/18/18 14:51 iodine Allergy Verified 12/18/18 14:51 Review of Systems Review of Systems Subjective history is impeded by patient's confused state as she responds ?yes? to all questions Constitutional: Positive for fevers and chills Eyes: Positive blurry vision ENT: Positive for headache, nasal congestion, ear pain, sore throat Respiratory: Positive for cough, shortness of breath Cardiovascular: Positive for chest pain with deep inspiration, palpitations Gastrointestinal: Positive for nausea and vomiting Genitourinary: denies urinary symptoms Musculoskeletal: Positive for weakness denies falls Integumentary: Denies Rashes hives or itching Neurological: Positive for dizziness Psychiatric: denies depression or anxiety Endocrine: Denies frequent urination excessive thirst Exam Vital Signs (past 8 hours): - 12/18/18 21:11 12/18/18 22:00 12/18/18 23:50 Temperature 97.7 F Pulse Rate 80 77 64 Respiratory Rate 25 H 23 17 Blood Pressure 105/51 L Blood Pressure [Left Arm] 133/50 L 135/52 L Pulse Oximetry 97 98 94 12/19/18 03:00 Temperature 97.5 F L Pulse Rate 56 L Respiratory Rate 18 Blood Pressure 121/60 Blood Pressure [Left Arm] Pulse Oximetry 99 Oxygen Delivery Method Nasal Cannula Oxygen Flow Rate 1 Narrative Exam Narrative: General: Well developed, well nourished, in no acute distress. Skin: Warm, dry, pink, no rashes, no visible lesions HEENT: Normocephalic, PERRLA, EOMs intact without nystagmus, conjunctiva moist, sclera is anicteric, hearing grossly normal, no sinus tenderness to percussion, oropharynx is dry and pink without lesions or exudate, uvula midline, posterior pharynx with redness, anterior cervical lymphadenopathy Neck: Supple, no masses, no thyromegaly, trachea midline, no carotid bruits or JVD, no supraclavicular lymphadenopathy Cardiac: Regular rate and rhythm, S1-S2, no murmur appreciated, no gallops or rubs, 2+ radial pulse, 1+ dorsalis pedis pulse, capillary refill is 3 sec, no edema Chest: Symmetrical movement, breathing non labored, no cough present, BS equal bilateral without coarseness, crackles or wheezes Abdomen: Soft, no epigastric or abdominal tenderness or guarding, no masses or organomegaly, no flank or suprapubic pain, BS normal. Back: Normal curvature, no tenderness to palpation, no CVA tenderness on percussion Extremities: Preserved ROM, no synovial effusions or deformities, strength 5/5 and symmetrical, stable gait Neuro: Alert oriented to person only, cranial nerves II-XII grossly intact, distal sensation intact to light touch, no paresthesias Psych: pleasant, cooperative, stable mood and congruent affect Objective Labs Result Diagrams: 12/18/18 16:05 12/18/18 16:05 Labs: Laboratory Results - last 24 hr 12/18/18 12/18/18 12/18/18 16:05 16:05 16:05 WBC 4.3 L RBC 3.82 L Hgb 11.1 L Hct 32.6 L MCV 85.3 MCH 28.9 MCHC 33.9 RDW 14.3 Plt Count 182 Neut % (Auto) 69.3 Lymph % (Auto) 19.3 L [place] % (Auto) 10.0 Eos % (Auto) 0.3 L Baso % (Auto) 1.1 Neut # (Auto) 3000 Lymph # (Auto) 800 L [place] # (Auto) 400 Eos # (Auto) 0 Baso # (Auto) 0 PT 10.9 INR 1.0 APTT 29 D-Dimer Sodium 132 L Potassium 4.3 Chloride 99 Carbon Dioxide 22 BUN 21 H Creatinine 1.40 H Estimated GFR 37.2 L BUN/Creatinine Ratio 15.0 Glucose 142 H Calcium 9.2 Total Bilirubin 0.3 AST 30 ALT 20 Alkaline Phosphatase 70 Total Creatine Kinase 42 CK-MB (CK-2) TNP CK-MB (CK-2) Rel Index TNP Troponin I 0.047 H B-Natriuretic Peptide Total Protein 7.5 Albumin 4.2 Globulin 3.3 Albumin/Globulin Ratio 1.3 Lipase 298 Influenza A & B (PCR) 12/18/18 12/18/18 12/18/18 18:55 18:55 18:55 WBC RBC Hgb Hct MCV MCH MCHC RDW Plt Count Neut % (Auto) Lymph % (Auto) [place] % (Auto) Eos % (Auto) Baso % (Auto) Neut # (Auto) Lymph # (Auto) [place] # (Auto) Eos # (Auto) Baso # (Auto) PT INR APTT D-Dimer 325 H Sodium Potassium Chloride Carbon Dioxide BUN Creatinine Estimated GFR BUN/Creatinine Ratio Glucose Calcium Total Bilirubin AST ALT Alkaline Phosphatase Total Creatine Kinase CK-MB (CK-2) CK-MB (CK-2) Rel Index Troponin I 0.037 H B-Natriuretic Peptide < 100 Total Protein Albumin Globulin Albumin/Globulin Ratio Lipase Influenza A & B (PCR) 12/18/18 19:35 WBC RBC Hgb Hct MCV MCH MCHC RDW Plt Count Neut % (Auto) Lymph % (Auto) [place] % (Auto) Eos % (Auto) Baso % (Auto) Neut # (Auto) Lymph # (Auto) [place] # (Auto) Eos # (Auto) Baso # (Auto) PT INR APTT D-Dimer Sodium Potassium Chloride Carbon Dioxide BUN Creatinine Estimated GFR BUN/Creatinine Ratio Glucose Calcium Total Bilirubin AST ALT Alkaline Phosphatase Total Creatine Kinase CK-MB (CK-2) CK-MB (CK-2) Rel Index Troponin I B-Natriuretic Peptide Total Protein Albumin Globulin Albumin/Globulin Ratio Lipase Influenza A & B (PCR) Positive, type a A Assessment & Plan Assessment & Plan narrative: The patient is admitted to the hospital for cardiac monitoring for chest pain as well as oxygenation and influenza a. 1. Influenza A, acute -the patient tested positive for influenza AM PCR in the ER -the patient is at risk for decompensation related to nausea vomiting and appears to be mildly dehydrated. -will administer normal saline at 100 cc/hour -the patient will be started on Tamiflu. 2. Chest pain, acute -per report from Dr. Tao 12 lead EKG was unremarkable, tracing is not available for review this time -chest pain is pleuritic character worsening with deep breath, breath sounds are clear without coarseness -bleed to be bronchial irritation related to #1. -will recheck a.m. troponin -patient will remain on telemetry and monitor for arrhythmias and ongoing evaluation chest pain 3. Confusion, acute -the patient by report typically lives alone and is unsafe for return to her current living situation -patient is mildly hyponatremic at 132, mucous membranes dry, will rehydrate patient cautiously -confusional state likely worsened by influenza -will monitor the patient and re-evaluate. 4. Diabetes, chronic -patient presently taking metformin. Patient with diminished renal function, will hold metformin -active checks a.c. HS with low range sliding scale insulin coverage 5. Elevated creatinine, present on admission -patient appears to be chronic kidney disease stage 3 but we have no comparison to identify if acute or chronic -will obtain urinalysis to evaluate for protein urea -will hydrate the patient and reassess creatinine level. -will avoid renal toxic agents 6. Irritable bowel, chronic -patient with history of diverticulosis -patient denies diarrhea -patient is taking dicyclomine 10 mg daily as needed will continue home regimen The patient is admitted as inpatient to the hospital related confusional status and the need for ongoing monitoring and risk for complications. Patient's length of stay is expected to be greater than 2 midnights. Time Spent With Patient Time with patient: 15-24 minutes Scores GCS Lui coma scale eye opening: To sound [place] coma scale verbal response: Confused Lui coma scale motor response: Obey commands Lui coma scale total score: 13 Quality VTE Deep Vein Thrombosis/Pulmonary Embolism Present on Admission: Yes
[2018-12-19] MEDS: PANTOPRAZOLE 20 MG TABLET PO (06:04)
[2018-12-19 06:30] LABS: RBC Urine None Seen (0-5/HPF); WBC Urine None Seen (0-5/HPF)
[2018-12-19 06:30] LABS: Add Manual Diff / Slide Review NO; Basophils Absolute Auto 0 /uL (0-100); Basophils Percent Auto 0.5 % (0-2); Eosinophils Absolute Auto 0 /uL (0-450); Hemoglobin 10.5 g/dL (12.0-16.0); Lymphocytes Absolute Auto 400 /uL (1100-4500); Mean Corpuscular HGB Conc 33.9 % (30-36); Mean Corpuscular Hemoglobin 28.6 PG (26-34); Mean Corpuscular Volume 84.4 fL (80-100); Monocytes Absolute Auto 100 /uL (0-900); Monocytes Percent Auto 2.6 % (3-14); Neutrophils Absolute Auto 2300 /uL (1500-7000); Neutrophils Percent Auto 81.9 % (50-75); Platelet Count 164 X10^3/uL (150-400); Red Blood Cell Count 3.67 X10^6/uL (4.0-5.2); Red Cell Distribution Width 14.4 % (11.6-14.8); White Blood Cell Count 2.8 X10^3/uL (4.5-11.0)
[2018-12-19 06:38] LABS: BUN Creatinine Ratio 15.8 (6-22); Blood Urea Nitrogen 19 mg/dL (7-17); Calcium 8.6 mg/dL (8.4-10.2); Carbon Dioxide 21 mmol/L (22-32); Chloride 105 mmol/L (98-107); Estimated Glomerular Filt Rate 44.4 mL/min (>60); Glucose 243 mg/dL (80-110); HEMOLYSIS < 15 (0-50); Magnesium 1.8 mg/dL (1.6-2.3); Potassium 4.3 mmol/L (3.4-5.1); Sodium 136 mmol/L (137-145)
--- NOTE | 2018-12-19 06:42 | PC.NURSE ---
UA collected, clean catch, and was sent to lab.
[2018-12-19 07:04] LABS: Appearance Urine UA CLEAR; Bilirubin Urine UA NEGATIVE (NEGATIVE); Color Urine UA YELLOW; Glucose Urine UA NEGATIVE (Negative); Ketones Urine UA TRACE (NEGATIVE); Leukocyte Esterase Urine UA NEGATIVE (NEGATIVE); Nitrite Urine UA NEGATIVE (Negative); Occult Blood Urine UA NEGATIVE (Negative); Protein Urine UA NEGATIVE (Negative); Urobilinogen Urine UA 0.2 E.U./dL (0.2); pH Urine UA 5.5 (4.5-8.0)
[2018-12-19 07:37] LABS: Amorphous Sediment Urine 1+; Bacteria Urine Few (2-10); Culture Indicated Urine Cult Not Indicated; Squamous Epithelial Cell Urine 1-5 /HPF
[2018-12-19] MEDS: ASPIRIN EC 81 MG TABLET PO (09:16)
[2018-12-19] MEDS: ENOXAPARIN 40 MG/0.4 ML SYRINGE SUBCUT (09:16)
[2018-12-19] MEDS: FOLIC ACID 0.4 MG TABLET 0.8 MG PO (09:17)
[2018-12-19] MEDS: FLUTICASONE 120 SPRAY/16 GM SPRAY.SUSP NASAL (09:17)
[2018-12-19] MEDS: ACETAMINOPHEN 325 MG TABLET 650 MG PO (09:18)
[2018-12-19] MEDS: OSELTAMIVIR 75 MG CAPSULE PO ×2 (09:18→22:06)
[2018-12-19 09:19] LABS: Troponin I < 0.012 ng/mL (0.01-0.034)
[2018-12-19] MEDS: ESTROGENS, CONJUGATED 0.3 MG TABLET 0.45 MG PO (09:20)
[2018-12-19] MEDS: INSULIN ASPART 100 UNIT/ML INSULN PEN SUBCUT ×3 (09:22→17:02)
--- NOTE | 2018-12-19 13:21 | P.PN_ITS ---
Subjective Date Patient Seen: 12/19/18 Interval history: She is seen today to follow up her influenza A and related symptoms including mediastinal area pain and a possible pulmonary embolus. Her white count is low at 2.8. Her hemoglobin is low at 10.5. The glucose is 243. The BMP is otherwise normal. She is on Tamiflu. She has some confusion about the pulmonary embolus issue. The final reading on CT angio was that this was not a pulmonary embolus. This is explained to her at some length. Her troponin was also initially elevated at 0.047 and is now 0.012. Exam Vital Signs (past 8 hours): - 12/19/18 08:14 12/19/18 08:38 12/19/18 11:35 Temperature 97.3 F L 97.3 F L Pulse Rate 53 L 64 Respiratory Rate 16 18 Blood Pressure 131/56 L 129/57 L Pulse Oximetry 98 96 100 Oxygen Delivery Method Room Air Oxygen Flow Rate 0 Narrative Exam Narrative: She is somewhat confused and anxious. She is alert and oriented x3. There is no apparent distress. Heart is regular rate and rhythm without murmur. There is no sternal tenderness. Lungs are clear to auscultation bilaterally. Extremities have no ankle edema. Objective Labs Result Diagrams: 12/19/18 05:50 12/19/18 05:50 Labs: Laboratory Results - last 24 hr 12/18/18 12/18/18 12/18/18 16:05 16:05 16:05 WBC 4.3 L RBC 3.82 L Hgb 11.1 L Hct 32.6 L MCV 85.3 MCH 28.9 MCHC 33.9 RDW 14.3 Plt Count 182 Neut % (Auto) 69.3 Lymph % (Auto) 19.3 L [place] % (Auto) 10.0 Eos % (Auto) 0.3 L Baso % (Auto) 1.1 Neut # (Auto) 3000 Lymph # (Auto) 800 L [place] # (Auto) 400 Eos # (Auto) 0 Baso # (Auto) 0 PT 10.9 INR 1.0 APTT 29 D-Dimer Sodium 132 L Potassium 4.3 Chloride 99 Carbon Dioxide 22 BUN 21 H Creatinine 1.40 H Estimated GFR 37.2 L BUN/Creatinine Ratio 15.0 Glucose 142 H Calcium 9.2 Magnesium Total Bilirubin 0.3 AST 30 ALT 20 Alkaline Phosphatase 70 Total Creatine Kinase 42 CK-MB (CK-2) TNP CK-MB (CK-2) Rel Index TNP Troponin I 0.047 H B-Natriuretic Peptide Total Protein 7.5 Albumin 4.2 Globulin 3.3 Albumin/Globulin Ratio 1.3 Lipase 298 Urine Color Urine Appearance Urine pH Ur Specific [place] Urine Protein Urine Glucose (UA) Urine Ketones Urine Occult Blood Urine Nitrate Urine Bilirubin Urine Urobilinogen Ur Leukocyte Esterase Urine RBC Urine WBC Ur Squamous Epith Cells Amorphous Sediment Urine Bacteria Ur Culture Indicated? Influenza A & B (PCR) 12/18/18 12/18/18 12/18/18 18:55 18:55 18:55 WBC RBC Hgb Hct MCV MCH MCHC RDW Plt Count Neut % (Auto) Lymph % (Auto) [place] % (Auto) Eos % (Auto) Baso % (Auto) Neut # (Auto) Lymph # (Auto) [place] # (Auto) Eos # (Auto) Baso # (Auto) PT INR APTT D-Dimer 325 H Sodium Potassium Chloride Carbon Dioxide BUN Creatinine Estimated GFR BUN/Creatinine Ratio Glucose Calcium Magnesium Total Bilirubin AST ALT Alkaline Phosphatase Total Creatine Kinase CK-MB (CK-2) CK-MB (CK-2) Rel Index Troponin I 0.037 H B-Natriuretic Peptide < 100 Total Protein Albumin Globulin Albumin/Globulin Ratio Lipase Urine Color Urine Appearance Urine pH Ur Specific [place] Urine Protein Urine Glucose (UA) Urine Ketones Urine Occult Blood Urine Nitrate Urine Bilirubin Urine Urobilinogen Ur Leukocyte Esterase Urine RBC Urine WBC Ur Squamous Epith Cells Amorphous Sediment Urine Bacteria Ur Culture Indicated? Influenza A & B (PCR) 12/18/18 12/19/18 12/19/18 19:35 05:50 05:50 WBC 2.8 L RBC 3.67 L Hgb 10.5 L Hct 31.0 L MCV 84.4 MCH 28.6 MCHC 33.9 RDW 14.4 Plt Count 164 Neut % (Auto) 81.9 H Lymph % (Auto) 15.0 L [place] % (Auto) 2.6 L Eos % (Auto) 0.0 L Baso % (Auto) 0.5 Neut # (Auto) 2300 Lymph # (Auto) 400 L [place] # (Auto) 100 Eos # (Auto) 0 Baso # (Auto) 0 PT INR APTT D-Dimer Sodium 136 L Potassium 4.3 Chloride 105 Carbon Dioxide 21 L BUN 19 H Creatinine 1.20 H Estimated GFR 44.4 L BUN/Creatinine Ratio 15.8 Glucose 243 H D Calcium 8.6 Magnesium Total Bilirubin AST ALT Alkaline Phosphatase Total Creatine Kinase CK-MB (CK-2) CK-MB (CK-2) Rel Index Troponin I B-Natriuretic Peptide Total Protein Albumin Globulin Albumin/Globulin Ratio Lipase Urine Color Urine Appearance Urine pH Ur Specific [place] Urine Protein Urine Glucose (UA) Urine Ketones Urine Occult Blood Urine Nitrate Urine Bilirubin Urine Urobilinogen Ur Leukocyte Esterase Urine RBC Urine WBC Ur Squamous Epith Cells Amorphous Sediment Urine Bacteria Ur Culture Indicated? Influenza A & B (PCR) Positive, type a A 12/19/18 12/19/18 12/19/18 05:50 06:20 08:50 WBC RBC Hgb Hct MCV MCH MCHC RDW Plt Count Neut % (Auto) Lymph % (Auto) [place] % (Auto) Eos % (Auto) Baso % (Auto) Neut # (Auto) Lymph # (Auto) [place] # (Auto) Eos # (Auto) Baso # (Auto) PT INR APTT D-Dimer Sodium Potassium Chloride Carbon Dioxide BUN Creatinine Estimated GFR BUN/Creatinine Ratio Glucose Calcium Magnesium 1.8 Total Bilirubin AST ALT Alkaline Phosphatase Total Creatine Kinase CK-MB (CK-2) CK-MB (CK-2) Rel Index Troponin I < 0.012 B-Natriuretic Peptide Total Protein Albumin Globulin Albumin/Globulin Ratio Lipase Urine Color Yellow Urine Appearance Clear Urine pH 5.5 Ur Specific [place] 1.010 Urine Protein Negative Urine Glucose (UA) Negative Urine Ketones Trace H Urine Occult Blood Negative Urine Nitrate Negative Urine Bilirubin Negative Urine Urobilinogen 0.2 Ur Leukocyte Esterase Negative Urine RBC None seen Urine WBC None seen Ur Squamous Epith Cells 1-5 /hpf Amorphous Sediment 1+ Urine Bacteria Few (2-10) H Ur Culture Indicated? Cult not indicated Influenza A & B (PCR) Assessment & Plan Assessment & Plan narrative: 1. Influenza A, acute -the patient tested positive for influenza AM PCR in the ER -the patient is at risk for decompensation related to nausea vomiting and was mildly dehydrated. -will continue normal saline at 100 cc/hour at least until eating well -the patient will be continued on Tamiflu. 2. Chest pain, acute -per report from Dr. Tao 12 lead EKG was unremarkable, tracing is not harris ilable for review this time -chest pain is pleuritic in the mediastinal area worsening with deep breath, breath sounds are clear -troponin is now normalized. This would appear to be a renal function related versus demand ischemia issue. -patient will remain on telemetry and monitor for arrhythmias and ongoing evaluation chest pain 3. Confusion, acute -the patient by report typically lives alone and is unsafe for return to her current living situation -patient was mildly hyponatremic at 132, mucous membranes dry so was rehydrated -confusional state likely worsened by influenza, apparently clearing today -will monitor the patient and re-evaluate. 4. Diabetes, chronic -patient presently taking metformin. With her diminished renal function, will hold metformin -active checks a.c. HS with low range sliding scale insulin coverage 5. Elevated creatinine, present on admission -patient appears to be chronic kidney disease stage 3 but we have no comparison to identify if acute or chronic -the GFR has risen from 37 up to 44 with IV fluids. 6. Irritable bowel, chronic -history of diverticulosis -denies diarrhea -patient is taking dicyclomine 10 mg daily as needed will continue home regimen Quality VTE Deep Vein Thrombosis/Pulmonary Embolism Present on Admission: Yes
[2018-12-19] MEDS: diazePAM 5 MG TABLET PO (13:34)
[2018-12-19] MEDS: HYDROCODONE/ACET 5/325 TABLET 1 TAB PO (13:34)
[2018-12-19] MEDS: SERTRALINE 50 MG TABLET PO (17:03)
[2018-12-19] MEDS: Cyclosporine 1 DROP 1 EACH EYE-BOTH (22:16)
[2018-12-20] VITALS (10 sets, daily range): BP systolic 115–155; BP diastolic 55–70; PULSE 62–89; RESP 18–24; TEMP 36.3–36.8; O2SAT 95–99
[2018-12-20] MEDS: PANTOPRAZOLE 20 MG TABLET PO (05:34)
[2018-12-20] MEDS: HYDROCODONE/ACET 5/325 TABLET 1 TAB PO (05:41)
--- NOTE | 2018-12-20 05:58 | PC.NURSE ---
Slept most of the shift, C/O ESPINOZA rated pain level @ 7. 1 tab. Vicodin admin. reports a little dizzy when I get up. Will cont. POC & monitor.
[2018-12-20 06:09] LABS: Add Manual Diff / Slide Review NO; Basophils Absolute Auto 0 /uL (0-100); Basophils Percent Auto 0.6 % (0-2); Eosinophils Absolute Auto 100 /uL (0-450); Eosinophils Percent Auto 1.6 % (2-4); Hematocrit 32.1 % (36-46); Hemoglobin 10.7 g/dL (12.0-16.0); Lymphocytes Absolute Auto 1700 /uL (1100-4500); Lymphocytes Percent Auto 47.2 % (25-40); Mean Corpuscular HGB Conc 33.4 % (30-36); Mean Corpuscular Volume 86.8 fL (80-100); Monocytes Absolute Auto 200 /uL (0-900); Monocytes Percent Auto 6.6 % (3-14); Neutrophils Absolute Auto 1600 /uL (1500-7000); Platelet Count 185 X10^3/uL (150-400); Red Cell Distribution Width 14.7 % (11.6-14.8); White Blood Cell Count 3.5 X10^3/uL (4.5-11.0)
[2018-12-20 06:15] LABS: BUN Creatinine Ratio 17.7 (6-22); Blood Urea Nitrogen 23 mg/dL (7-17); Calcium 9.1 mg/dL (8.4-10.2); Carbon Dioxide 25 mmol/L (22-32); Chloride 102 mmol/L (98-107); Estimated Glomerular Filt Rate 40.5 mL/min (>60); Glucose 140 mg/dL (80-110); HEMOLYSIS < 15 (0-50); Potassium 4.2 mmol/L (3.4-5.1); Sodium 136 mmol/L (137-145)
[2018-12-20] MEDS: ESTROGENS, CONJUGATED 0.3 MG TABLET 0.45 MG PO (09:02)
[2018-12-20] MEDS: ENOXAPARIN 40 MG/0.4 ML SYRINGE SUBCUT (09:02)
[2018-12-20] MEDS: ASPIRIN EC 81 MG TABLET PO (09:02)
[2018-12-20] MEDS: Cyclosporine 1 DROP 1 EACH EYE-BOTH (09:02)
[2018-12-20] MEDS: FOLIC ACID 0.4 MG TABLET 0.8 MG PO (09:03)
[2018-12-20] MEDS: FLUTICASONE 120 SPRAY/16 GM SPRAY.SUSP NASAL (09:03)
[2018-12-20] MEDS: OSELTAMIVIR 75 MG CAPSULE PO ×2 (09:03→20:49)
[2018-12-20] MEDS: SODIUM CHLORIDE 0.9% FLUSH 10 ML IV ×2 (09:04→20:49)
--- NOTE | 2018-12-20 10:46 | PM.PN.1 ---
Subjective Date Patient Seen: 12/20/18 Time Patient Seen: 10:47 Interval history: She is seen today to follow-up her weakness related to the type A influenza. She has chronic anemia with a hemoglobin of 10.7 and chronic kidney disease with a GFR of 40 and a creatinine of 1.30. Her blood sugar today is 140. She says she is still unsteady but is now able to get to the bathroom using her walker which is closer to her baseline. There is no chest pain currently. Exam Vital Signs (past 8 hours): - 12/20/18 04:20 12/20/18 08:50 Temperature 97.5 F L 98.3 F Pulse Rate 65 65 Respiratory Rate 20 18 Blood Pressure 118/57 L 120/60 Pulse Oximetry 99 99 Oxygen Delivery Method Room Air Oxygen Flow Rate 0 Narrative Exam Narrative: She is alert and oriented x3. She is certainly more calm and less agitated than yesterday. The improvement in the mediastinal chest pain seems to be effective for her. Heart is regular rate and rhythm without murmur. Lungs are clear to auscultation bilaterally. Extremities have no ankle edema. Objective Labs Result Diagrams: 12/20/18 05:19 12/20/18 05:19 Labs: Laboratory Results - last 24 hr 12/20/18 12/20/18 05:19 05:19 WBC 3.5 L RBC 3.70 L Hgb 10.7 L Hct 32.1 L MCV 86.8 MCH 29.0 MCHC 33.4 RDW 14.7 Plt Count 185 Neut % (Auto) 44.0 L D Lymph % (Auto) 47.2 H D [place] % (Auto) 6.6 Eos % (Auto) 1.6 L Baso % (Auto) 0.6 Neut # (Auto) 1600 Lymph # (Auto) 1700 [place] # (Auto) 200 Eos # (Auto) 100 Baso # (Auto) 0 Sodium 136 L Potassium 4.2 Chloride 102 Carbon Dioxide 25 BUN 23 H Creatinine 1.30 H Estimated GFR 40.5 L BUN/Creatinine Ratio 17.7 Glucose 140 H D Calcium 9.1 Assessment & Plan Assessment & Plan narrative: 1. Influenza A, acute -she is improving quickly with Tamiflu and IV fluids, anticipating discharge home tomorrow once her strength is closer to baseline and she is able to be independent again 2. Chest pain, acute -this appeared to be from a chronic mediastinal process and has now resolved 3. Confusion, acute -much improved today with treatment of the influenza and dehydration. -this was due to acute metabolic encephalopathy from acute illness of influenza a. 4. Diabetes, chronic -patient presently taking metformin. With her diminished renal function, we are holding metformin -active checks a.c. HS with low range sliding scale insulin coverage 5. Elevated creatinine, present on admission -patient appears to have chronic kidney disease stage 3 -GFR 40 today -the GFR has risen from 37 up to 44 with IV fluids. 6. Irritable bowel, chronic -patient is taking dicyclomine 10 mg daily as needed will continue home regimen 7. Leukocytosis/Neutropenia secondary to Viral Influenza -resolving Quality VTE Deep Vein Thrombosis/Pulmonary Embolism Present on Admission: Yes
--- NOTE | 2018-12-20 11:01 | PC.NURSE ---
Addendum entered by Patricia Pérez R.N. 12/20/18 14:22: GI - standby assist to br, no bm, discussed constipation and given 10mg po dulcolax tabs. Original Note: AM NOTE - alert, no complaint rr difficulty, no sob, no chest discomfort, earlier norco tab did help her headache, ra 99%, hr 64, no dizziness reported this am.
--- NOTE | 2018-12-20 11:27 | CM.DANOTE ---
DCP: Case received, EMR reviewed and met with patient. DCP template completed with information currently available. Patient is a 68 year old female who admitted 12/18 in the evening to the care of the hospitalist team. PCP: Dr. Donato. Payer: confirmed: Medicare/[employer]. Patient came to hospital via family vehicle due to dizziness, as well as shortness of breath. Patient carries diagnosis of Influenza A. Met briefly with patient in her room. Pleasant, alert and oriented. Lives alone in [place]. Asked her if she had any friends or family in the area. She stated that she has a son that lives nearby. She is a . Asked her how she does at home, and she stated that she is independent. She also stated that she drives. P: DCP to follow closely. May be able to go home when she is medically stable. Will be determined on how she progresses here in hospital. Amy Borges RN/Automatic Profile Shaper Operator
[2018-12-20] MEDS: INSULIN ASPART 100 UNIT/ML INSULN PEN SUBCUT ×2 (12:06→16:56)
[2018-12-20] MEDS: BISACODYL 5 MG TABLET 10 MG PO (13:05)
[2018-12-20] MEDS: SERTRALINE 50 MG TABLET PO (20:49)
[2018-12-21] MEDS: HYDROCODONE/ACET 5/325 TABLET 1 TAB PO ×2 (00:14→09:58)
[2018-12-21 00:15] VITALS: O2SAT 96
[2018-12-21 05:32] VITALS: BP 138/74; PULSE 63; RESP 16; TEMP 36.6; O2SAT 96
[2018-12-21 05:48] LABS: Add Manual Diff / Slide Review NO; Basophils Absolute Auto 0 /uL (0-100); Basophils Percent Auto 0.7 % (0-2); Eosinophils Absolute Auto 100 /uL (0-450); Eosinophils Percent Auto 2.6 % (2-4); Hematocrit 32.3 % (36-46); Lymphocytes Absolute Auto 1600 /uL (1100-4500); Lymphocytes Percent Auto 47.6 % (25-40); Mean Corpuscular HGB Conc 33.9 % (30-36); Mean Corpuscular Volume 85.5 fL (80-100); Monocytes Absolute Auto 300 /uL (0-900); Neutrophils Absolute Auto 1300 /uL (1500-7000); Neutrophils Percent Auto 41.1 % (50-75); Platelet Count 180 X10^3/uL (150-400); Red Blood Cell Count 3.78 X10^6/uL (4.0-5.2); Red Cell Distribution Width 14.7 % (11.6-14.8); White Blood Cell Count 3.3 X10^3/uL (4.5-11.0)
[2018-12-21] MEDS: PANTOPRAZOLE 20 MG TABLET PO (05:49)
[2018-12-21 06:04] LABS: BUN Creatinine Ratio 15.8 (6-22); Blood Urea Nitrogen 19 mg/dL (7-17); Carbon Dioxide 28 mmol/L (22-32); Chloride 104 mmol/L (98-107); Estimated Glomerular Filt Rate 44.4 mL/min (>60); Glucose 114 mg/dL (80-110); HEMOLYSIS < 15 (0-50); Potassium 4.8 mmol/L (3.4-5.1); Sodium 138 mmol/L (137-145)
--- NOTE | 2018-12-21 06:45 | PC.NURSE ---
CBG was checked @ 2052 with the results of 141.
[2018-12-21 08:13] VITALS: BP 142/77; PULSE 71; RESP 16; TEMP 36.5; O2SAT 97
--- NOTE | 2018-12-21 09:24 | PM.DS.1 ---
History of Present Illness Date Patient Seen: 12/21/18 Time Patient Seen: 09:24 Chief complaint: DIZZY,SHORTNESS OF BREATH,VOMITING,DIARRHEA Narrative: This is a 68-year-old female patient with a history of diabetes, vertigo, dyspepsia, anxiety and irritable bowels who presents to the ER for complaints of shortness of breath dizziness, nausea, vomiting and diarrhea. At this time the patient is a poor historian unable to provide significant medical history. Family is unavailable at the bedside thus most information is obtained from chart review and information obtained from the patient's daughter all present in the ER. The patient reportedly has had chest pain with shortness of breath for 2 days that has become progressively worse. Pain has been described as pleuritic with the patient stating ?it hurts to breathe?. Patient has shortness of breath at rest worsened on exertion. She has associated complaints of orthostasis, nausea vomiting 3 times today and increasing confusion. The patient had an incarcerated hernia repair on 10/31/2018 a recent cardiac workup at [facility] in July for what ended up being a sternal contusion. Upon arrival in the emergency department the patient had a blood pressure 108/72, heart rate of 82, respirations 15 and temperature of 98.6?. She was 93% on room air. On laboratory analysis the patient's CBC was within normal limits, on chemistry she has a mild hyponatremia at 132 and an elevated creatinine at 1.4 with BUN of 21 and a BUN creatinine ratio of 15. There are no prior labs for comparison is to identify whether the elevated creatinine is acute or chronic. Patient did have influenza screening which was positive for influenza A. Due to her chest pain with coughing and burning troponins were assessed and were initially 0.047 an approximate 3 hr later was 0.037. The patient had a CTA completed which finds no occlusions but notes filling defects in the peripheral segmental arteries as well as nonspecific mediastinal adenopathy. Is also noted on CT that she has multiple hypoattenuating subcentimeter foci in the liver. Twelve lead EKG is reported as completed in the ER but not available for review. The patient's chest x-ray showed no acute cardiopulmonary changes. In the ER the patient received a 1 L of saline bolus. The patient is admitted to the hospital related to chest pain mildly elevated troponins and confusion. Discharge Providers Date of admission: 12/18/18 22:33 Primary care physician: Manju Donato MD Consults: 12/19/18 01:54 Consult to Discharge Planning Routine Comment: 12/20/18 02:42 Consult to [employer]ity Prospecting Operator Routine Comment: Patient needs PCP for follow up. Discharge provider: Pavithra Harper MD Discharge Date: 12/21/18 Summary Discharge Diagnosis: 1. Influenza A, acute -she has improved steadily and more recently quickly with Tamiflu and is now back to her baseline, ready to go home. She will complete the full 5 day course of Tamiflu. 2. Chest pain, acute -this appeared to be from a chronic mediastinal process, exacerbated by the influenza and has now resolved 3. Confusion, acute -very much resolved today with treatment of the influenza and dehydration. -this was due to acute metabolic encephalopathy from acute illness of influenza a. 4. Diabetes, chronic -resuming metformin at home 5. Elevated creatinine, present on admission -patient appears to have chronic kidney disease stage 3 -GFR 44 today -the GFR has risen from 37 up to 44 with IV fluids. 6. Irritable bowel, chronic -patient is taking dicyclomine 10 mg daily as needed will continue home regimen 7. Leukocytosis/Neutropenia secondary to Viral Influenza, most recent white blood count of 3.3. Hospital Course: 1. Influenza A, acute 2. Chest pain, acute 3. Confusion, acute 4. Diabetes, chronic 5. Elevated creatinine, present on admission 6. Irritable bowel, chronic 7. Leukocytosis/Neutropenia secondary to Viral Influenza Exam Vital Signs (past 8 hours): - 12/21/18 05:32 12/21/18 08:13 Temperature 97.9 F 97.7 F Pulse Rate 63 71 Respiratory Rate 16 16 Blood Pressure 138/74 142/77 H Pulse Oximetry 96 97 Oxygen Delivery Method Room Air Oxygen Flow Rate 0 Narrative Exam Narrative: She is doing very well today, fully alert and energetic. Heart is regular rate and rhythm without murmur. Lungs are clear to auscultation bilaterally. Extremities have no ankle edema. Objective Labs Result Diagrams: 12/21/18 05:16 12/21/18 05:16 Labs: Laboratory Results - last 24 hr 12/21/18 12/21/18 05:16 05:16 WBC 3.3 L RBC 3.78 L Hgb 11.0 L Hct 32.3 L MCV 85.5 MCH 29.0 MCHC 33.9 RDW 14.7 Plt Count 180 Neut % (Auto) 41.1 L Lymph % (Auto) 47.6 H [place] % (Auto) 8.0 Eos % (Auto) 2.6 Baso % (Auto) 0.7 Neut # (Auto) 1300 L Lymph # (Auto) 1600 [place] # (Auto) 300 Eos # (Auto) 100 Baso # (Auto) 0 Sodium 138 Potassium 4.8 Chloride 104 Carbon Dioxide 28 BUN 19 H Creatinine 1.20 H Estimated GFR 44.4 L BUN/Creatinine Ratio 15.8 Glucose 114 H Calcium 9.0 Discharge Plan Discharge Plan Patient Disposition: Home Discharge comment: Follow up with your new doctor in a week Discharge Med Rec/Prescriptions Prescriptions: New oseltamivir [Tamiflu] 75 mg Capsule 75 mg PO BID 2 Days Qty: 4 RF: 0 Continued acyclovir 5 % Ointment 5 % Topical QID RF: 0 ascorbic acid (vitamin C) [Vitamin C] 1,000 mg Tablet 1,000 mg PO DAILY RF: 0 biotin 5 mg Capsule 5,000 mg PO DAILY RF: 0 vitamin B complex Tablet 2 tab PO DAILY RF: 0 meclizine 12.5 mg Tablet 12.5 mg PO DAILY RF: 0 metformin 1,000 mg Tablet 500 mg PO BID RF: 0 neomycin-polymyxin B-dexameth [Maxitrol] 3.5mg/mL-10,000 unit/mL-0.1 % Drops,Suspension 1 drp EYE-BOTH BID RF: 0 fluticasone [Flonase Allergy Relief] 50 mcg/actuation [place],Suspension 50 mcg Intranasal DAILY PRN (Reason: Allergy Symptoms) RF: 0 folic acid 800 mcg Tablet 800 mcg PO DAILY RF: 0 diazepam [Valium] 5 mg Tablet 5 mg PO DAILY PRN (Reason: Anxiety) RF: 0 cyclosporine [Restasis] 0.05 % Dropperette 0.05 % EYE-BOTH BID RF: 0 conjugated estrogens [Premarin] 0.45 mg Tablet 0.45 mg PO DAILY RF: 0 omega-3 acid ethyl esters [Lovaza] 1 gram Capsule 2 cap PO BID RF: 0 pyridoxine (vitamin B6) [Vitamin B-6] 50 mg Capsule 50 mg PO BID RF: 0 omeprazole 20 mg Capsule,Delayed Release(Dr/Ec) 20 mg PO DAILY RF: 0 lisinopril 20 mg Tablet 20 mg PO DAILY RF: 0 sennosides [Senokot] 8.6 mg tablet 8.6 mg PO BEDTIME Qty: 10 RF: 1 docusate sodium [Colace] 100 mg capsule 100 mg PO BID Qty: 14 RF: 1 oxycodone 5 mg tablet 5 mg PO Q4-6H PRN (Reason: pain) Qty: 30 RF: 0 metformin 500 mg tablet 500 mg PO BID RF: 0 lisinopril 5 mg tablet 5 mg PO QPM RF: 0 fluticasone 50 mcg/actuation spray,suspension 1 spray Intranasal DAILY RF: 0 sertraline 50 mg tablet 50 mg PO QPM RF: 0 diazepam 5 mg tablet 5 mg PO BID PRN (Reason: Anxiety) RF: 0 cyclosporine 0.05 % dropperette 1 drp EYE-BOTH BID RF: 0 conjugated estrogens 0.45 mg tablet 0.45 mg PO DAILY RF: 0 ascorbic acid (vitamin C) 1,000 mg Tablet 1 g PO DAILY RF: 0 aspirin 81 mg Tablet,Delayed Release (Dr/Ec) 81 mg PO DAILY RF: 0 acyclovir 800 mg Tablet 800 mg PO DAILY PRN (Reason: Outbreak) RF: 0 meclizine 25 mg Tablet 12.5 mg PO PRN PRN (Reason: Vertigo) RF: 0 ranitidine HCl 150 mg Tablet 150 mg PO BID RF: 0 vitamin B complex Tablet 1 tab PO DAILY RF: 0 mupirocin 2 % Ointment 1 applic TOPICAL BID PRN (Reason: unknown) RF: 0 dicyclomine 10 mg Capsule 10 mg PO DAILY PRN (Reason: diverticulosis) RF: 0 folic acid 800 mcg Tablet 0.8 mg PO DAILY RF: 0 Humalog KwikPen Insulin 100 unit/mL Insulin Pen 0 - 2 units subcut BEDTIME PRN (Reason: BS > 300) RF: 0 cholecalciferol (vitamin D3) [Vitamin D3] 1,000 unit Tablet 1,000 unit PO DAILY RF: 0 alpha lipoic acid 600 mg Capsule 600 mg PO DAILY RF: 0 Probiotic Blend 2 billion cell-50 mg Capsule 1 - 3 cap PO DAILY RF: 0 Levemir FlexTouch U-100 Insuln 10 units subcut BEDTIME PRN (Reason: BS > 300) RF: 0 Vitamin B-6 30 mg tablet 30 mg PO DAILY RF: 0 Follow up/Referrals: Manju Donato MD [Primary Care Provider] - Discharge Data Primary Care Provider: Manju Donato Attending Provider: Zachary Barakat Admit Date/Time: 12/18/18 22:33 Quality VTE Deep Vein Thrombosis/Pulmonary Embolism Present on Admission: Yes
[2018-12-21] MEDS: FOLIC ACID 0.4 MG TABLET 0.8 MG PO (09:50)
[2018-12-21] MEDS: ENOXAPARIN 40 MG/0.4 ML SYRINGE SUBCUT (09:50)
[2018-12-21] MEDS: OSELTAMIVIR 75 MG CAPSULE PO (09:51)
[2018-12-21] MEDS: ASPIRIN EC 81 MG TABLET PO (09:51)
[2018-12-21] MEDS: ESTROGENS, CONJUGATED 0.3 MG TABLET 0.45 MG PO (09:51)
[2018-12-21] MEDS: FLUTICASONE 120 SPRAY/16 GM SPRAY.SUSP NASAL (09:52)
--- NOTE | 2018-12-21 10:36 | CM.DPC ---
DCP Cont: Patient is to be discharged home today. Met briefly with patient, for she is looking for another provider, since Dr. Small is not Medicare certified at this time. Gave her [facility]'s phone number, and encouraged her to call them to get he set up with another provider in same practice. Also gave her the [facility] clinic's phone number here in [place], for they may be accepting new patients. She stated that she could make it over here if needed to see a doctor. P: Patient will be discharged home today. Amy Borges RN/Aba Therapist
[2018-12-21] MEDS: INSULIN ASPART 100 UNIT/ML INSULN PEN SUBCUT (11:59)
--- NOTE | 2018-12-21 13:14 | PC.NURSE ---
son arrived, patient left w/ paperwork and all belongings and script. left by wc in no s/sx's of distress w/ greens cutter escort to vehicle.
== END 2018-12-21 13:25 | disposition home or self-care (01) | DRG 70 ==
LOC: ED 22:22 → AC 23:45
PROVIDERS: Emergency Medicine; Admitting Provider Nurse Practitioner Adult Health; Emergency Provider Emergency Medicine; PCP Obstetrics & Gynecology; Visit Provider Nurse Practitioner Adult Health
DX: G93.41 Metabolic encephalopathy (principal); I21.A1 Myocardial infarction type 2; E87.1 Hypo-osmolality and hyponatremia; J11.1 Influenza due to unidentified influenza virus with other respiratory manifestations; R40.2362 Coma scale, best motor response, obeys commands, at arrival to emergency department; R40.2132 Coma scale, eyes open, to sound, at arrival to emergency department; R40.2242 Coma scale, best verbal response, confused conversation, at arrival to emergency department; I12.9 Hypertensive chronic kidney disease with stage 1 through stage 4 chronic kidney disease, or unspecified chronic kidney disease; N18.3 Chronic kidney disease, stage 3 (moderate); E11.9 Type 2 diabetes mellitus without complications; R42 Dizziness and giddiness; F41.9 Anxiety disorder, unspecified; K21.9 Gastro-esophageal reflux disease without esophagitis; Z79.4 Long term (current) use of insulin; K58.9 Irritable bowel syndrome, unspecified; E86.0 Dehydration
CPT/HCPCS: 36415; 36591; 71045; 71275; 74176; 80048; 80053; 81001; 82550; 82962; 83690; 83735; 83880; 84484; 85025; 85379; 85610; 85730; 87400; 93005; 94762; 96361; 96374; 96375; 99285; J1200; J1650; J2405; J2930

== ENCOUNTER 2018-12-25 19:56 | Emergency (ER) | payer MEDICARE, OTHER, SELFPAY ==
[2018-12-25 19:56] VITALS: BMI 24.3
[2018-12-25 20:04] VITALS: BP 111/65; PULSE 85; RESP 20; TEMP 36.8; O2SAT 98
--- NOTE | 2018-12-25 20:09 | DI.RAD.S_ITS ---
PROCEDURE: XR CHEST 2V INDICATIONS: SHORTNESS OF BREATH TECHNIQUE: 2 views of the chest were acquired. COMPARISON: [facility], , XR CHEST 1V, 12/18/2018, 16:02. FINDINGS: Surgical changes and devices: None. Lungs and pleura: Lungs are clear. No pleural effusions or pneumothorax. Mediastinum: Mediastinal contours are normal. Heart size is normal. Bones and chest wall: No suspicious bony abnormalities. Soft tissues appear unremarkable. IMPRESSION: No acute disease. Dictated by: Sal Horta M.D. on 12/25/2018 at 21:50 Approved by: Sal Horta M.D. on 12/25/2018 at 21:50
[2018-12-25 20:35] LABS: Influenza A and B by PCR Rapid Negative (Negative)
--- NOTE | 2018-12-25 21:57 | PC.NURSE ---
Patient has had flu. D/C saturday. States she felt okay on saturday and then worse. Has been increasingly worse since then. States she hurts all over. States she would like Tylenol with codeine, and nausea medication. family states she had a temp of 101 today but no temp in triage. Denies taking anything besides her regular medication today.
--- NOTE | 2018-12-25 22:36 | ED.FEVER ---
HPI - Fever General Chief Complaint: Fever Stated Complaint: Fever, SOB Time Seen by Provider: 12/25/18 22:16 Source: patient, family and old records reviewed Mode of arrival: wheelchair Limitations: no limitations History of Present Illness HPI Narrative: This a 68-year-old female who comes in with complaint of, nausea and occasional vomiting. Patient states she was admitted with influenza and discharged Saturday. Patient states she was feeling better but is now feeling worse again. She states she sort of hurts all over. She has a cough that is not really productive but does cause pain. Patient states that she was having dizziness that was pretty severe and feeling like she had disequilibrium prior to admission at this is been slowly improving although is still present. Patient states she also had chest pain which is also been pretty constant. It is worse when she coughs this is not been improving. She states when she was in the hospital they gave her Tylenol 3 which helped. She has had occasional nausea and vomiting but has been able to keep down some fluids. No active diarrhea. No rashes or skin changes. She states she had a fever of 100.5 at home today but did not take any Tylenol or ibuprofen for it. She did take Tamiflu for the full 5 days. Related Data Home Medications Medication Instructions Recorded Confirmed acyclovir 5 % TOPICAL QID 03/18/18 10/29/18 ascorbic acid (vitamin C) [Vitamin 1,000 mg PO DAILY 03/18/18 10/29/18 C] biotin 5,000 mg PO DAILY 03/18/18 10/29/18 conjugated estrogens [Premarin] 0.45 mg PO DAILY 03/18/18 10/29/18 cyclosporine [Restasis] 0.05 % EYE-BOTH BID 03/18/18 10/29/18 diazepam [Valium] 5 mg PO DAILY PRN 03/18/18 10/29/18 fluticasone [Flonase Allergy 50 mcg INTRANASAL DAILY PRN 03/18/18 10/29/18 Relief] folic acid 800 mcg PO DAILY 03/18/18 10/29/18 meclizine 12.5 mg PO DAILY 03/18/18 10/29/18 metformin 500 mg PO BID 03/18/18 10/29/18 neomycin-polymyxin B-dexameth 1 drp EYE-BOTH BID 05/15/18 12/26/18 [Maxitrol] omega-3 acid ethyl esters [Lovaza] 2 cap PO BID 03/18/18 10/29/18 pyridoxine (vitamin B6) [Vitamin 50 mg PO BID 03/18/18 10/29/18 B-6] vitamin B complex 2 tab PO DAILY 03/18/18 10/29/18 omeprazole 20 mg PO DAILY 05/28/18 10/29/18 lisinopril 20 mg PO DAILY 10/29/18 10/29/18 Humalog KwikPen Insulin 0 - 2 units SUBCUT BEDTIME PRN 12/18/18 12/18/18 Levemir FlexTouch U-100 Insuln 10 units SUBCUT BEDTIME PRN 12/18/18 12/18/18 Probiotic Blend 1 - 3 cap PO DAILY 12/18/18 12/18/18 Vitamin B-6 30 mg PO DAILY 12/18/18 12/18/18 acyclovir 800 mg PO DAILY PRN 12/18/18 12/18/18 alpha lipoic acid 600 mg PO DAILY 12/18/18 12/18/18 ascorbic acid (vitamin C) 1 g PO DAILY 12/18/18 12/18/18 aspirin 81 mg PO DAILY 12/18/18 12/18/18 cholecalciferol (vitamin D3) 1,000 unit PO DAILY 12/18/18 12/18/18 [Vitamin D3] conjugated estrogens 0.45 mg PO DAILY 12/18/18 12/18/18 cyclosporine 1 drp EYE-BOTH BID 12/18/18 12/18/18 diazepam 5 mg PO BID PRN 12/18/18 12/18/18 dicyclomine 10 mg PO DAILY PRN 12/18/18 12/18/18 fluticasone 1 spray INTRANASAL DAILY 12/18/18 12/18/18 folic acid 0.8 mg PO DAILY 12/18/18 12/18/18 lisinopril 5 mg PO QPM 12/18/18 12/18/18 meclizine 12.5 mg PO PRN PRN 12/18/18 12/18/18 metformin 500 mg PO BID 12/18/18 12/18/18 mupirocin 1 applic TOPICAL BID PRN 12/18/18 12/18/18 ranitidine HCl 150 mg PO BID 12/18/18 12/18/18 sertraline 50 mg PO QPM 12/18/18 12/18/18 vitamin B complex 1 tab PO DAILY 12/18/18 12/18/18 Previous Rx's Medication Instructions Recorded docusate sodium [Colace] 100 mg PO BID #14 cap 10/31/18 oxycodone 5 mg PO Q4-6H PRN #30 tab 10/31/18 sennosides [Senokot] 8.6 mg PO BEDTIME #10 tab 10/31/18 acetaminophen-codeine 1 tab PO Q6H PRN #10 tab 12/26/18 [Tylenol-Codeine #3] Allergies Allergy/AdvReac Type Severity Reaction Status Date / Time gabapentin Allergy Verified 12/19/18 07:46 Iodinated Contrast- Oral and Allergy Verified 12/19/18 07:46 IV Dye iodine Allergy Verified 12/19/18 07:46 atorvastatin AdvReac Verified 12/19/18 07:46 Review of Systems Review of Systems ROS Unobtainable: All systems reviewed & are unremarkable except as noted in HPI and below Constitutional Reports body ache(s), Reports chills, Reports fatigue and Reports fever(s) (100.9) Eyes Denies change in vision ENT Ears, Nose, Mouth, and Throat: Reports disequilibrium Cardiovascular Reports chest pain (With cough), Denies diaphoresis, Denies syncope, Denies rapid heart rate, Denies edema, Denies irregular heart rhythm, Denies lightheadedness, Denies palpitations, Denies dyspnea, Denies dyspnea on exertion and Denies orthopnea Respiratory Denies change in phlegm color, Reports chest congestion, Reports cough, Denies hemoptysis, Reports pain with cough, Denies dyspnea, Denies dyspnea on exertion and Denies wheezing Gastrointestinal Gastrointestinal: Denies abdominal pain, Denies melena, Denies hematochezia, Denies change in bowel habits, Denies diarrhea, Reports nausea and Reports vomiting (Occasionally) Genitourinary Denies hematuria, Denies urinary frequency, Denies flank pain, Denies urinary incontinence, Denies urinary urgency and Denies other (Decrease in urine output) Integumentary/Breasts Denies rash Neurologic Denies syncope and Reports disequilibrium Endocrine Reports fatigue and Denies palpitations Allergic/Immunologic Denies wheezing PFSH Medical History Diabetes (Acute) GERD (gastroesophageal reflux disease) (Acute) Giant cell arteritis (Acute) H/O: hysterectomy (Acute) Hypertension (Acute) Chronic diarrhea (Chronic) Diabetes (Chronic) Giant cell arteritis (Chronic) Hypertension (Chronic) GERD with esophagitis (Resolved) History of rectocele (Resolved) Surgical History History of hernia repair (Acute) History of bladder suspension procedure (Resolved) S/P hernia repair (Resolved) Social History household members: family and none caregiver/support person: Yes (son) Smoking Status: Never smoker alcohol intake: current Social History household members: family and none caregiver/support person: Yes (son) Smoking Status: Never smoker alcohol intake: current Exam Narrative Exam Narrative: GEN: well nourished, well appearing female, alert and oriented x 3, patient appears to be in mild distress. HEENT: Atraumatic, pupils are equal round reactive to light, extraocular movements are intact, nares are clear, TMs are clear with no fluid, there is no conjunctival pallor. Throat is clear without any exudates, erythema, tonsillar enlargement or uvular deviation, patient has bilateral anterior cervical lymphadenopathy. HEART: Regular rate and rhythm without murmur, clicks, rubs. pulses are equal in upper and lower extremities LUNGS:Lungs clear to auscultation, no wheezes, rales, crackles, chest moves symmetrically ABD:bowel sounds normal, soft, non-tender, no guarding, rebound, rigidity, no masses noted, no hepatosplenomegaly :No CVA tenderness MSCL: Non-tender, no muscle atrophy, full range of motion NEURO:CN 2-12 intact, sensation normal Initial Vital Signs Initial Vital Signs: Vital Signs Temperature 98.3 F 12/25/18 20:04 Pulse Rate 85 12/25/18 20:04 Respiratory Rate 20 12/25/18 20:04 Blood Pressure 111/65 12/25/18 20:04 Pulse Oximetry 98 12/25/18 20:04 Course Orders Ordered: ED Orders 12/25/18 20:09 Chest [XR chest 2V] Stat FLU A and B [Influenza A and B by PCR Rapid] Stat 12/25/18 23:48 Complete Blood Count AUTO DIFF Stat Comprehensive Metabolic Panel Stat Lactate (Lactic Acid) Stat Procalcitonin Stat Discontinued Medications Acetaminophen/Codeine Phosphate (Tylenol #3) 1 tab PO NOW ONE Stop: 12/25/18 22:35 Last Admin: 12/26/18 00:07 Dose: 1 tab Sodium Chloride (Normal Saline 0.9%) 1,000 mls @ 1,000 mls/hr IV BOLUS ONE Stop: 12/25/18 23:33 Last Infusion: 12/26/18 01:45 Dose: 0 mls/hr Admin: 12/26/18 00:07 Dose: 1,000 mls/hr Ondansetron HCl (Zofran) 4 mg IV NOW ONE Stop: 12/25/18 22:35 Last Admin: 12/26/18 00:06 Dose: 4 mg Vital Signs - 8 hr 12/25/18 20:04 12/25/18 23:39 12/26/18 02:00 Temperature 98.3 F 98.1 F Pulse Rate 85 76 72 Respiratory Rate 20 18 Blood Pressure 111/65 117/45 L Blood Pressure [Left Arm] 111/45 L Pulse Oximetry 98 97 97 MDM - Fever Lab Data Attestation: I reviewed the patient's lab results. Result diagrams: 12/25/18 23:48 12/25/18 23:48 Lab Results 12/25/18 12/25/18 12/25/18 Range/Units 20:09 23:48 23:48 WBC 9.2 (4.5-11.0) X10^3/uL RBC 3.56 L (4.0-5.2) X10^6/uL Hgb 10.1 L (12.0-16.0) g/dL Hct 30.4 L (36-46) % MCV 85.4 (80-100) fL MCH 28.4 (26-34) PG MCHC 33.3 (30-36) % RDW 14.1 (11.6-14.8) % Plt Count 258 (150-400) X10^3/uL Neut % (Auto) 70.9 (50-75) % Lymph % (Auto) 19.2 L (25-40) % King % (Auto) 7.6 (3-14) % Eos % (Auto) 1.8 L (2-4) % Baso % (Auto) 0.5 (0-2) % Neut # (Auto) 6600 (9367-6495) /uL Lymph # (Auto) 1800 (7624-4896) /uL King # (Auto) 700 (0-900) /uL Eos # (Auto) 200 (0-450) /uL Baso # (Auto) 0 (0-100) /uL Sodium (137-145) mmol/L Potassium (3.4-5.1) mmol/L Chloride (98-107) mmol/L Carbon Dioxide (22-32) mmol/L BUN (7-17) mg/dL Creatinine (0.52-1.04) mg/dL Estimated GFR (>60) mL/min BUN/Creatinine Ratio (6-22) Glucose (80-110) mg/dL Lactate (0.7-2.1) mmol/L Calcium (8.4-10.2) mg/dL Total Bilirubin (0.2-1.3) mg/dL AST (14-36) IU/L ALT (9-52) IU/L Alkaline Phosphatase (38-126) U/L Total Protein (6.3-8.2) g/dL Albumin (3.5-5.0) g/dL Globulin (1.7-4.1) g/dL Albumin/Globulin Ratio (1.0-2.8) Procalcitonin 0.08 (<0.5) ng/mL Influenza A & B (PCR) Negative (Negative) 12/25/18 12/25/18 Range/Units 23:48 23:48 WBC (4.5-11.0) X10^3/uL RBC (4.0-5.2) X10^6/uL Hgb (12.0-16.0) g/dL Hct (36-46) % MCV (80-100) fL MCH (26-34) PG MCHC (30-36) % RDW (11.6-14.8) % Plt Count (150-400) X10^3/uL Neut % (Auto) (50-75) % Lymph % (Auto) (25-40) % King % (Auto) (3-14) % Eos % (Auto) (2-4) % Baso % (Auto) (0-2) % Neut # (Auto) (1725-8589) /uL Lymph # (Auto) (3029-2772) /uL King # (Auto) (0-900) /uL Eos # (Auto) (0-450) /uL Baso # (Auto) (0-100) /uL Sodium 133 L (137-145) mmol/L Potassium 3.6 D (3.4-5.1) mmol/L Chloride 96 L (98-107) mmol/L Carbon Dioxide 26 (22-32) mmol/L BUN 12 (7-17) mg/dL Creatinine 1.10 H (0.52-1.04) mg/dL Estimated GFR 49.1 L (>60) mL/min BUN/Creatinine Ratio 10.9 (6-22) Glucose 156 H (80-110) mg/dL Lactate 1.0 (0.7-2.1) mmol/L Calcium 8.8 (8.4-10.2) mg/dL Total Bilirubin 0.4 (0.2-1.3) mg/dL AST 21 (14-36) IU/L ALT 22 (9-52) IU/L Alkaline Phosphatase 82 (38-126) U/L Total Protein 7.2 (6.3-8.2) g/dL Albumin 3.9 (3.5-5.0) g/dL Globulin 3.3 (1.7-4.1) g/dL Albumin/Globulin Ratio 1.2 (1.0-2.8) Procalcitonin (<0.5) ng/mL Influenza A & B (PCR) (Negative) Imaging Data Chest x-ray: Radiologist's impression: [address] [address] XRay Report Signed Patient: Qiana Jackson LMR#: [id number] : 8Acct:[id number] Age/Sex: 68 / FDate of Service: 12/25/18 Loc: ED Accession Number: [id number] Procedure: XR chest 2V Ordering Provider: Fabi Jackman D.O. PROCEDURE: XR CHEST 2V INDICATIONS: SHORTNESS OF BREATH TECHNIQUE: 2 views of the chest were acquired. COMPARISON: [facility], [place], XR CHEST 1V, 12/18/2018, 16:02. FINDINGS: Surgical changes and devices: None. Lungs and pleura: Lungs are clear. No pleural effusions or pneumothorax. Mediastinum: Mediastinal contours are normal. Heart size is normal. Bones and chest wall: No suspicious bony abnormalities. Soft tissues appear unremarkable. IMPRESSION: No acute disease. Dictated by: Sal Horta M.D. on 12/25/2018 at 21:50 Approved by: Sal Horta M.D. on 12/25/2018 at 21:50 [facility] Narrative Medical decision making narrative: Patient's hospital stay was reviewed, lab work here today shows improvement in her white count from during her hospital stay, her electrolytes and renal function appears stable. A procalcitonin was included a is patient is can sometimes have a post influenza pneumonia or other causes of infection. This was negative. Influenza was swabbed again today which was negative. Patient shows to be showed acute pneumonia. Patient is feeling improved after some fluids and Zofran and Tylenol 3. Discussed with patient and plan for follow-up with primary care. I did discuss that I am not diagnosing her with post influenza syndrome but this could potentially be a cause of her symptoms versus another or still feeling the effects of her recent bout of influenza. Discharge Plan Departure Patient Disposition: Home Clinical Impression: Post-influenza syndrome Discharge Date/Time: 12/26/18 02:03 Interventions: ED Discharge Assessment Last Done: 12/26/18 02:00 Instructions: DI for Influenza -- Adult Activity Restrictions/Additional Instructions: Follow up with your physician in the next 3-5 days. Call for an appointment. Continue tylenol or ibuprofen for fevers greater than 100.4F, you may take tylenol #3 every 6-8 hours for cough. Do not take this medication with plain Tylenol. Return to the emergency department for persistent fevers, new difficulty breathing, new chest, shortness of breath, persistent vomiting, black or bloody stools or other new or concerning symptoms. Prescriptions: New acetaminophen-codeine [Tylenol-Codeine #3] 300-30 mg tablet 1 tab PO Q6H PRN (Reason: pain) Qty: 10 RF: 0 No Action acyclovir 5 % Ointment 5 % Topical QID RF: 0 ascorbic acid (vitamin C) [Vitamin C] 1,000 mg Tablet 1,000 mg PO DAILY RF: 0 biotin 5 mg Capsule 5,000 mg PO DAILY RF: 0 vitamin B complex Tablet 2 tab PO DAILY RF: 0 meclizine 12.5 mg Tablet 12.5 mg PO DAILY RF: 0 metformin 1,000 mg Tablet 500 mg PO BID RF: 0 neomycin-polymyxin B-dexameth [Maxitrol] 3.5mg/mL-10,000 unit/mL-0.1 % Drops,Suspension 1 drp EYE-BOTH BID RF: 0 fluticasone [Flonase Allergy Relief] 50 mcg/actuation [place],Suspension 50 mcg Intranasal DAILY PRN (Reason: Allergy Symptoms) RF: 0 folic acid 800 mcg Tablet 800 mcg PO DAILY RF: 0 diazepam [Valium] 5 mg Tablet 5 mg PO DAILY PRN (Reason: Anxiety) RF: 0 cyclosporine [Restasis] 0.05 % [place] 0.05 % EYE-BOTH BID RF: 0 conjugated estrogens [Premarin] 0.45 mg Tablet 0.45 mg PO DAILY RF: 0 omega-3 acid ethyl esters [Lovaza] 1 gram Capsule 2 cap PO BID RF: 0 pyridoxine (vitamin B6) [Vitamin B-6] 50 mg Capsule 50 mg PO BID RF: 0 omeprazole 20 mg Capsule,Delayed Release(Dr/Ec) 20 mg PO DAILY RF: 0 lisinopril 20 mg Tablet 20 mg PO DAILY RF: 0 sennosides [Senokot] 8.6 mg tablet 8.6 mg PO BEDTIME Qty: 10 RF: 1 docusate sodium [Colace] 100 mg capsule 100 mg PO BID Qty: 14 RF: 1 oxycodone 5 mg tablet 5 mg PO Q4-6H PRN (Reason: pain) Qty: 30 RF: 0 metformin 500 mg tablet 500 mg PO BID RF: 0 lisinopril 5 mg tablet 5 mg PO QPM RF: 0 fluticasone 50 mcg/actuation spray,suspension 1 spray Intranasal DAILY RF: 0 sertraline 50 mg tablet 50 mg PO QPM RF: 0 diazepam 5 mg tablet 5 mg PO BID PRN (Reason: Anxiety) RF: 0 cyclosporine 0.05 % dropperette 1 drp EYE-BOTH BID RF: 0 conjugated estrogens 0.45 mg tablet 0.45 mg PO DAILY RF: 0 ascorbic acid (vitamin C) 1,000 mg Tablet 1 g PO DAILY RF: 0 aspirin 81 mg Tablet,Delayed Release (Dr/Ec) 81 mg PO DAILY RF: 0 acyclovir 800 mg Tablet 800 mg PO DAILY PRN (Reason: Outbreak) RF: 0 meclizine 25 mg Tablet 12.5 mg PO PRN PRN (Reason: Vertigo) RF: 0 ranitidine HCl 150 mg Tablet 150 mg PO BID RF: 0 vitamin B complex Tablet 1 tab PO DAILY RF: 0 mupirocin 2 % Ointment 1 applic TOPICAL BID PRN (Reason: unknown) RF: 0 dicyclomine 10 mg Capsule 10 mg PO DAILY PRN (Reason: diverticulosis) RF: 0 folic acid 800 mcg Tablet 0.8 mg PO DAILY RF: 0 Humalog KwikPen Insulin 100 unit/mL Insulin Pen 0 - 2 units subcut BEDTIME PRN (Reason: BS > 300) RF: 0 cholecalciferol (vitamin D3) [Vitamin D3] 1,000 unit Tablet 1,000 unit PO DAILY RF: 0 alpha lipoic acid 600 mg Capsule 600 mg PO DAILY RF: 0 Probiotic Blend 2 billion cell-50 mg Capsule 1 - 3 cap PO DAILY RF: 0 Levemir FlexTouch U-100 Insuln 10 units subcut BEDTIME PRN (Reason: BS > 300) RF: 0 Vitamin B-6 30 mg tablet 30 mg PO DAILY RF: 0 Referrals: Manju Donato MD [Primary Care Provider] -
[2018-12-25 23:39] VITALS: BP 111/45; PULSE 76; RESP 18; TEMP 36.7; O2SAT 97
[2018-12-26] MEDS: ONDANSETRON 4 MG/2 ML INJ IV (00:06)
[2018-12-26] MEDS: CODEINE/ACETAMINOPHEN 30/300 TABLET 1 TAB PO (00:07)
[2018-12-26] MEDS: SODIUM CHLORIDE 0.9% 1,000 ML 1000 ML IV (00:07)
[2018-12-26 00:08] LABS: Add Manual Diff / Slide Review NO; Basophils Absolute Auto 0 /uL (0-100); Basophils Percent Auto 0.5 % (0-2); Eosinophils Absolute Auto 200 /uL (0-450); Eosinophils Percent Auto 1.8 % (2-4); Hematocrit 30.4 % (36-46); Hemoglobin 10.1 g/dL (12.0-16.0); Lymphocytes Absolute Auto 1800 /uL (1100-4500); Lymphocytes Percent Auto 19.2 % (25-40); Mean Corpuscular HGB Conc 33.3 % (30-36); Mean Corpuscular Hemoglobin 28.4 PG (26-34); Mean Corpuscular Volume 85.4 fL (80-100); Monocytes Absolute Auto 700 /uL (0-900); Monocytes Percent Auto 7.6 % (3-14); Neutrophils Absolute Auto 6600 /uL (1500-7000); Neutrophils Percent Auto 70.9 % (50-75); Platelet Count 258 X10^3/uL (150-400); Red Blood Cell Count 3.56 X10^6/uL (4.0-5.2); Red Cell Distribution Width 14.1 % (11.6-14.8); White Blood Cell Count 9.2 X10^3/uL (4.5-11.0)
[2018-12-26 00:15] LABS: Alanine Aminotransferase 22 IU/L (9-52); Albumin 3.9 g/dL (3.5-5.0); Albumin Globulin Ratio 1.2 (1.0-2.8); Alkaline Phosphatase 82 U/L (38-126); Aspartate Aminotransferase 21 IU/L (14-36); BUN Creatinine Ratio 10.9 (6-22); Bilirubin Total 0.4 mg/dL (0.2-1.3); Blood Urea Nitrogen 12 mg/dL (7-17); Calcium 8.8 mg/dL (8.4-10.2); Carbon Dioxide 26 mmol/L (22-32); Chloride 96 mmol/L (98-107); Estimated Glomerular Filt Rate 49.1 mL/min (>60); Globulin 3.3 g/dL (1.7-4.1); Glucose 156 mg/dL (80-110); HEMOLYSIS < 15 (0-50); Potassium 3.6 mmol/L (3.4-5.1); Sodium 133 mmol/L (137-145); Total Protein 7.2 g/dL (6.3-8.2)
[2018-12-26 00:23] LABS: Procalcitonin 0.08 ng/mL (<0.5)
[2018-12-26 02:00] VITALS: BP 117/45; PULSE 72; O2SAT 97
== END 2018-12-26 02:03 | disposition home or self-care (01) ==
PROVIDERS: Emergency Provider Emergency Medicine; PCP Obstetrics & Gynecology
DX: N84.0 Polyp of corpus uteri (principal)
CPT/HCPCS: 36591; 71046; 80053; 83605; 84145; 85025; 87400; 96361; 96374; 99283; 99284; J2405

== ENCOUNTER 2019-03-14 21:16 | Emergency (ER) | payer MEDICARE, OTHER, SELFPAY ==
--- NOTE | 2019-03-14 21:28 | ED_ITS ---
HPI - General Adult General Chief complaint: Chest Pain Stated complaint: Palpitations x5 hours Time Seen by Provider: 03/14/19 21:28 Source: patient Mode of arrival: ambulatory Limitations: no limitations History of Present Illness HPI narrative: 69-year-old female came in for evaluation because she has had palpitations off and on for the past 5 hours. She also has multiple other complaints to include shortness of breath this is not new. She also has problems with ?esophageal motility ?but this is not new. She recently had a nerve stimulator placed for fecal incontinence. She stated that the reason she came in is because she has been having palpitations off and on for the past 5 hours. She states that when they come on a feels like her heart is beating very fast. She does feel slightly lightheaded with it but has not passed out. At 1 point stated that she was having chest pain but then she stated that this was her ?esophageal motility ?issue that was causing the pain. Related Data Home Medications Medication Instructions Recorded Confirmed acyclovir 5 % TOPICAL QID 03/18/18 01/06/19 ascorbic acid (vitamin C) [Vitamin 1,000 mg PO DAILY 03/18/18 01/06/19 C] biotin 5,000 mg PO DAILY 03/18/18 01/06/19 diazepam [Valium] 5 mg PO DAILY PRN 03/18/18 01/06/19 fluticasone propionate [Flonase 50 mcg INTRANASAL DAILY PRN 03/18/18 01/06/19 Allergy Relief] folic acid 800 mcg PO DAILY 03/18/18 01/06/19 meclizine 12.5 mg PO DAILY 03/18/18 01/06/19 metformin 500 mg PO BID 03/18/18 01/06/19 neomycin-polymyxin B-dexameth 1 drp EYE-BOTH BID 03/18/18 01/06/19 [Maxitrol] omega-3 acid ethyl esters [Lovaza] 2 cap PO BID 03/18/18 01/06/19 pyridoxine (vitamin B6) [Vitamin 50 mg PO BID 03/18/18 01/06/19 B-6] vitamin B complex 2 tab PO DAILY 03/18/18 01/06/19 omeprazole 20 mg PO DAILY 05/28/18 01/06/19 lisinopril 20 mg PO DAILY 10/29/18 01/06/19 Humalog KwikPen Insulin 0 - 2 units SUBCUT BEDTIME PRN 12/18/18 01/06/19 Levemir FlexTouch U-100 Insuln 10 units SUBCUT BEDTIME PRN 12/18/18 01/06/19 Probiotic Blend 1 - 3 cap PO DAILY 12/18/18 01/06/19 Vitamin B-6 30 mg PO DAILY 12/18/18 01/06/19 acyclovir 800 mg PO DAILY PRN 12/18/18 01/06/19 alpha lipoic acid 600 mg PO DAILY 12/18/18 01/06/19 ascorbic acid (vitamin C) 1 g PO DAILY 12/18/18 01/06/19 aspirin 81 mg PO DAILY 12/18/18 01/06/19 cholecalciferol (vitamin D3) 1,000 unit PO DAILY 12/18/18 01/06/19 [Vitamin D3] conjugated estrogens 0.45 mg PO DAILY 12/18/18 01/06/19 cyclosporine 1 drp EYE-BOTH BID 12/18/18 01/06/19 dicyclomine 10 mg PO DAILY PRN 12/18/18 01/06/19 lisinopril 5 mg PO QPM 12/18/18 01/06/19 mupirocin 1 applic TOPICAL BID PRN 12/18/18 01/06/19 ranitidine HCl 150 mg PO BID 12/18/18 01/06/19 sertraline 50 mg PO QPM 12/18/18 01/06/19 Previous Rx's Medication Instructions Recorded docusate sodium [Colace] 100 mg PO BID #14 cap 10/31/18 oxycodone 5 mg PO Q4-6H PRN #30 tab 10/31/18 sennosides [Senokot] 8.6 mg PO BEDTIME #10 tab 10/31/18 acetaminophen-codeine 1 tab PO Q6H PRN #10 tab 12/26/18 [Tylenol-Codeine #3] Allergies Allergy/AdvReac Type Severity Reaction Status Date / Time gabapentin Allergy Verified 12/19/18 07:46 Iodinated Contrast- Oral and Allergy Verified 12/19/18 07:46 IV Dye iodine Allergy Verified 12/19/18 07:46 atorvastatin AdvReac Verified 12/19/18 07:46 Review of Systems Constitutional Denies fever(s) Cardiovascular Reports rapid heart rate, Denies radiating jaw, neck or arm pain, Reports palpitations and Denies dyspnea Respiratory Denies dyspnea Gastrointestinal Gastrointestinal: Denies abdominal pain, Denies nausea and Denies vomiting Musculoskeletal Denies myalgias and Denies arthralgias Integumentary/Breasts Denies rash Neurologic Denies behavioral changes Psychiatric Denies behavioral changes Endocrine Reports palpitations Hematologic/Lymphatic Denies easy bleeding and Denies easy bruising [facility] Medical History Diabetes (Acute) GERD (gastroesophageal reflux disease) (Acute) Giant cell arteritis (Acute) H/O: hysterectomy (Acute) Hypertension (Acute) Chronic diarrhea (Chronic) Diabetes (Chronic) Giant cell arteritis (Chronic) Hypertension (Chronic) GERD with esophagitis (Resolved) History of rectocele (Resolved) Surgical History History of hernia repair (Acute) History of bladder suspension procedure (Resolved) S/P hernia repair (Resolved) Social History household members: family and none caregiver/support person: Yes (son) Smoking Status: Former smoker alcohol intake: current Social History household members: family and none caregiver/support person: Yes (son) Smoking Status: Former smoker alcohol intake: current Exam Initial Vital Signs Initial Vital Signs: Vital Signs Temperature 98.0 F 03/14/19 21:32 Pulse Rate 87 03/14/19 21:32 Respiratory Rate 22 03/14/19 21:32 Blood Pressure 163/55 H 03/14/19 21:32 Pulse Oximetry 94 03/14/19 21:32 Const General: cooperative, comfortable, well developed, well groomed and anxious Orientation: alert, awake and oriented x3 HENMT Head: normal to inspection and normocephalic Resp Effort & Inspection: normal respiratory effort Auscultation: clear to auscultation bilaterally Cardio Rate: regular rate Rhythm: regular rhythm Pulses: radial pulses present GI Inspection: non-distended Palpation: soft Skin Lesions: no lesions Rashes: no rashes Neuro General: alert, awake and oriented x3 Cognition: normal cognition Speech: speech normal Extrem General: normal to inspection and capillary refill normal Psych Appearance: grossly normal and well kempt Course Orders Ordered: ED Orders 03/14/19 22:00 XR chest 1V Stat 03/14/19 22:13 Basic Metabolic Panel Stat Complete Blood Count AUTO DIFF Stat Lipase Stat Vital Signs - 8 hr 03/14/19 21:32 03/14/19 22:00 03/14/19 22:30 Temperature 98.0 F Pulse Rate 87 74 70 Respiratory Rate 22 16 15 Blood Pressure 163/55 H Blood Pressure [Left Arm] 158/65 H 139/46 L Pulse Oximetry 94 100 03/14/19 23:13 Temperature Pulse Rate 74 Respiratory Rate 27 H Blood Pressure Blood Pressure [Left Arm] Pulse Oximetry Medical Decision Making Lab Data Lab results reviewed: Yes I reviewed the patient's lab results. Result diagrams: 03/14/19 22:13 03/14/19 22:13 Lab Results 03/14/19 03/14/19 03/14/19 Range/Units 22:13 22:13 22:13 WBC 8.0 (4.5-11.0) X10^3/uL RBC 3.76 L (4.0-5.2) X10^6/uL Hgb 10.4 L (12.0-16.0) g/dL Hct 31.6 L (36-46) % MCV 84.0 (80-100) fL MCH 27.7 (26-34) PG MCHC 32.9 (30-36) % RDW 14.4 (11.6-14.8) % Plt Count 241 (150-400) X10^3/uL Neut % (Auto) 56.9 (50-75) % Lymph % (Auto) 32.6 (25-40) % [place] % (Auto) 6.9 (3-14) % Eos % (Auto) 2.3 (2-4) % Baso % (Auto) 1.3 (0-2) % Neut # (Auto) 4500 (2911-6990) /uL Lymph # (Auto) 2600 (0842-7034) /uL [place] # (Auto) 500 (0-900) /uL Eos # (Auto) 200 (0-450) /uL Baso # (Auto) 100 (0-100) /uL Sodium 137 (137-145) mmol/L Potassium 4.5 (3.4-5.1) mmol/L Chloride 102 (98-107) mmol/L Carbon Dioxide 24 (22-32) mmol/L BUN 26 H (7-17) mg/dL Creatinine 1.90 H (0.52-1.04) mg/dL Estimated GFR 26.1 L (>60) mL/min BUN/Creatinine Ratio 13.7 (6-22) Glucose 87 (80-110) mg/dL Calcium 9.8 (8.4-10.2) mg/dL Lipase 585 H (23-300) U/L Imaging Data Chest x-ray: Attestation: I personally reviewed and interpreted this imaging study as follows: My impression: No acute pathology, normal size heart, no pneumonia ECG Data Attestation: I personally reviewed and interpreted this ECG as follows: Prior ECG tracings: not available for review Interpretation: Sinus rhythm Ventricular rate is 73 QRS duration [address] T wave changes MDM Narrative Medical decision making narrative: After further questioning through all of the patient's symptoms that she is having the reason she came into the emergency department this evening was because of the palpitations. All of her other symptoms to include shortness of breath in her esophageal issues are not new. She does seem extremely anxious about all of her symptoms. She had no ectopy on the monitor. She also stated that she was having some palpitations however was unsure as to when they happen. She did not hit her call bowel let us know when they happened. A quick review of her rhythm strips did not show any specific abnormalities. Her labs are unremarkable. Low suspicion for ACS. I do suspect that quite a bit of this is anxiety. She does have some Valium at home which she asked if she could take this for anxiety. She was given return precautions. Will have her contact her primary doctor for follow-up. She expressed understanding and agreement with plan. Family is also a bedside they expressed understanding and agreement. Discharge Plan Departure Patient Disposition: Home Clinical Impression: Heart palpitations Discharge Date/Time: 03/14/19 23:35 Interventions: ED Discharge Assessment Last Done: 03/14/19 23:35 Instructions: DI for Palpitations Activity Restrictions/Additional Instructions: Continue all of your medications as directed. Contact your primary care doctor to discuss the indications for a Holter monitor. Return to the emergency department for any new or worsening symptoms Prescriptions: No Action acyclovir 5 % Ointment 5 % Topical QID RF: 0 ascorbic acid (vitamin C) [Vitamin C] 1,000 mg Tablet 1,000 mg PO DAILY RF: 0 biotin 5 mg Capsule 5,000 mg PO DAILY RF: 0 vitamin B complex Tablet 2 tab PO DAILY RF: 0 meclizine 12.5 mg Tablet 12.5 mg PO DAILY RF: 0 metformin 1,000 mg Tablet 500 mg PO BID RF: 0 neomycin-polymyxin B-dexameth [Maxitrol] 3.5mg/mL-10,000 unit/mL-0.1 % Drops,Suspension 1 drp EYE-BOTH BID RF: 0 fluticasone propionate [Flonase Allergy Relief] 50 mcg/actuation [place],Suspension 50 mcg Intranasal DAILY PRN (Reason: Allergy Symptoms) RF: 0 folic acid 800 mcg Tablet 800 mcg PO DAILY RF: 0 diazepam [Valium] 5 mg Tablet 5 mg PO DAILY PRN (Reason: Anxiety) RF: 0 omega-3 acid ethyl esters [Lovaza] 1 gram Capsule 2 cap PO BID RF: 0 pyridoxine (vitamin B6) [Vitamin B-6] 50 mg Capsule 50 mg PO BID RF: 0 omeprazole 20 mg Capsule,Delayed Release(Dr/Ec) 20 mg PO DAILY RF: 0 lisinopril 20 mg Tablet 20 mg PO DAILY RF: 0 sennosides [Senokot] 8.6 mg tablet 8.6 mg PO BEDTIME Qty: 10 RF: 1 docusate sodium [Colace] 100 mg capsule 100 mg PO BID Qty: 14 RF: 1 oxycodone 5 mg tablet 5 mg PO Q4-6H PRN (Reason: pain) Qty: 30 RF: 0 lisinopril 5 mg tablet 5 mg PO QPM RF: 0 sertraline 50 mg tablet 50 mg PO QPM RF: 0 cyclosporine 0.05 % dropperette 1 drp EYE-BOTH BID RF: 0 conjugated estrogens 0.45 mg tablet 0.45 mg PO DAILY RF: 0 ascorbic acid (vitamin C) 1,000 mg Tablet 1 g PO DAILY RF: 0 aspirin 81 mg Tablet,Delayed Release (Dr/Ec) 81 mg PO DAILY RF: 0 acyclovir 800 mg Tablet 800 mg PO DAILY PRN (Reason: Outbreak) RF: 0 ranitidine HCl 150 mg Tablet 150 mg PO BID RF: 0 mupirocin 2 % Ointment 1 applic TOPICAL BID PRN (Reason: unknown) RF: 0 dicyclomine 10 mg Capsule 10 mg PO DAILY PRN (Reason: diverticulosis) RF: 0 Humalog KwikPen Insulin 100 unit/mL Insulin Pen 0 - 2 units subcut BEDTIME PRN (Reason: BS > 300) RF: 0 cholecalciferol (vitamin D3) [Vitamin D3] 1,000 unit Tablet 1,000 unit PO DAILY RF: 0 alpha lipoic acid 600 mg Capsule 600 mg PO DAILY RF: 0 Probiotic Blend 2 billion cell-50 mg Capsule 1 - 3 cap PO DAILY RF: 0 Levemir FlexTouch U-100 Insuln 10 units subcut BEDTIME PRN (Reason: BS > 300) RF: 0 Vitamin B-6 30 mg tablet 30 mg PO DAILY RF: 0 acetaminophen-codeine [Tylenol-Codeine #3] 300-30 mg tablet 1 tab PO Q6H PRN (Reason: pain) Qty: 10 RF: 0 Referrals: Manju Donato MD [Primary Care Provider] -
[2019-03-14 21:32] VITALS: BP 163/55; PULSE 87; RESP 22; TEMP 36.7; O2SAT 94
[2019-03-14 22:00] VITALS: BP 158/65; PULSE 74; RESP 16; O2SAT 100
--- NOTE | 2019-03-14 22:00 | DI.RAD.S_ITS ---
PROCEDURE: XR CHEST 1V INDICATIONS: Palpitations TECHNIQUE: One view of the chest was acquired. COMPARISON: [facility], CT, CT ANGIO CHEST PE PROTOCOL, 12/18/2018, 20:28. [facility], CR, XR CHEST 1V, 12/18/2018, 16:02. [facility], CR, XR CHEST 2V, 12/25/2018, 20:19. FINDINGS: Surgical changes and devices: None. Lungs and pleura: An incomplete inspiratory result is noted, causing a crowded appearance to the lung markings. No focal infiltrates are seen. No pneumothorax or significant pleural effusions are seen. Mediastinum: Mediastinal contours appear normal. Heart size is normal. Bones and chest wall: No suspicious bony lesions. Age-appropriate bony degenerative changes are seen. Overlying soft tissues appear unremarkable. IMPRESSION: Portable chest within normal limits. Note: No significant discrepancy from the preliminary report. Dictated by: Ted Rain M.D. on 03/15/2019 at 7:26 Approved by: Ted Rain M.D. on 03/15/2019 at 7:28
[2019-03-14 22:21] LABS: Add Manual Diff / Slide Review NO; Basophils Absolute Auto 100 /uL (0-100); Basophils Percent Auto 1.3 % (0-2); Eosinophils Absolute Auto 200 /uL (0-450); Eosinophils Percent Auto 2.3 % (2-4); Hematocrit 31.6 % (36-46); Hemoglobin 10.4 g/dL (12.0-16.0); Lymphocytes Absolute Auto 2600 /uL (1100-4500); Lymphocytes Percent Auto 32.6 % (25-40); Mean Corpuscular HGB Conc 32.9 % (30-36); Mean Corpuscular Hemoglobin 27.7 PG (26-34); Monocytes Absolute Auto 500 /uL (0-900); Monocytes Percent Auto 6.9 % (3-14); Neutrophils Absolute Auto 4500 /uL (1500-7000); Neutrophils Percent Auto 56.9 % (50-75); Platelet Count 241 X10^3/uL (150-400); Red Blood Cell Count 3.76 X10^6/uL (4.0-5.2); Red Cell Distribution Width 14.4 % (11.6-14.8)
[2019-03-14 22:30] VITALS: BP 139/46; PULSE 70; RESP 15
[2019-03-14 22:40] LABS: BUN Creatinine Ratio 13.7 (6-22); Blood Urea Nitrogen 26 mg/dL (7-17); Calcium 9.8 mg/dL (8.4-10.2); Carbon Dioxide 24 mmol/L (22-32); Chloride 102 mmol/L (98-107); Estimated Glomerular Filt Rate 26.1 mL/min (>60); Glucose 87 mg/dL (80-110); HEMOLYSIS < 15 (0-50); Potassium 4.5 mmol/L (3.4-5.1); Sodium 137 mmol/L (137-145)
[2019-03-14 22:53] LABS: Lipase 585 U/L (23-300)
[2019-03-14 23:13] VITALS: PULSE 74; RESP 27
== END 2019-03-14 23:35 | disposition home or self-care (01) ==
PROVIDERS: Emergency Provider Emergency Medicine; PCP Obstetrics & Gynecology
DX: R00.2 Palpitations (principal); R06.02 Shortness of breath; R42 Dizziness and giddiness
CPT/HCPCS: 36415; 71045; 80048; 83690; 85025; 93005; 93010; 99283; 99285

== ENCOUNTER → 2020-01-13 10:11 | Outpatient (CLI) | payer MEDICARE, OTHER, SELFPAY ==
--- NOTE | 2020-01-13 10:37 | DI.CT.S_ITS ---
PROCEDURE: CT SOFT TISSUE NECK WO CON INDICATIONS: Other lesions of oral mucosa TECHNIQUE: Non-contrast 3.0 mm axial sections acquired from the sella to the aortic arch. Additional oblique axial 3.0 mm sections acquired through the pharynx. 3 mm thick coronal and sagittal reformats were generated. For radiation dose reduction, the following was used: automated exposure control. COMPARISON: None. FINDINGS: Image quality: Excellent. Lymph nodes: No enlarged lymph nodes seen throughout the neck. Vessels: Non-opacified vessels appear normal in caliber. Neck spaces: The oropharynx, nasopharynx, and pharynx demonstrate no mucosal lesions. The vocal cords, false vocal cords, pyriform sinuses, epiglottis, vallecula, and tongue base all appear normal. Extramucosal spaces appear unremarkable. Glands: The parotid and submandibular glands appear normal, without stones. Thyroid gland negative. Miscellaneous: Visualized brain and orbits appear normal. Lung apices appear clear. Superficial soft tissues appear normal. Cervical spondylosis and facet arthropathy. Grade 1 anterolisthesis of C3 on C4 and C4 and C5. IMPRESSION: Unremarkable unenhanced study. Further study sensitivity would be obtained with contrast-enhanced examination as clinically necessary. No pathologically enlarged lymphadenopathy. Dictated by: Boston Lau M.D. on 01/13/2020 at 15:35 Approved by: Boston Lau M.D. on 01/13/2020 at 15:39
== END ==
PROVIDERS: PCP Internal Medicine; Referring Provider Internal Medicine; Visit Provider Internal Medicine
DX: K13.79 Other lesions of oral mucosa (principal); M54.2 Cervicalgia; M47.812 Spondylosis without myelopathy or radiculopathy, cervical region; M43.12 Spondylolisthesis, cervical region
CPT/HCPCS: 70490

== ENCOUNTER → 2020-01-15 18:35 | Outpatient (ROUT) | payer MEDICARE, OTHER, SELFPAY ==
[2020-01-15 19:08] LABS: Alanine Aminotransferase 10 IU/L (<35); Albumin 4.5 g/dL (3.5-5.0); Albumin Globulin Ratio 1.4 (1.0-2.8); Alkaline Phosphatase 73 U/L (38-126); Aspartate Aminotransferase 26 IU/L (14-36); BUN Creatinine Ratio 16.7 (6-22); Bilirubin Total 0.3 mg/dL (0.2-1.3); Blood Urea Nitrogen 22 mg/dL (7-17); Calcium 10.3 mg/dL (8.4-10.2); Carbon Dioxide 30 mmol/L (22-32); Chloride 100 mmol/L (98-107); Estimated Glomerular Filt Rate 39.7 mL/min (>60); Globulin 3.2 g/dL (1.7-4.1); Glucose 92 mg/dL (80-110); HEMOLYSIS < 15 (0-50); Potassium 4.8 mmol/L (3.4-5.1); Sodium 137 mmol/L (137-145); Total Protein 7.7 g/dL (6.3-8.2)
[2020-01-15 19:11] LABS: Hematocrit 36.3 % (36-46); Hemoglobin 12.3 g/dL (12.0-16.0); Mean Corpuscular HGB Conc 33.9 % (30-36); Mean Corpuscular Hemoglobin 29.7 PG (26-34); Mean Corpuscular Volume 87.8 fL (80-100); Platelet Count 298 X10^3/uL (150-400); Red Blood Cell Count 4.14 X10^6/uL (4.0-5.2); White Blood Cell Count 8.5 X10^3/uL (4.5-11.0)
[2020-01-15 19:32] LABS: Erythrocyte Sedimentation Rate 56 MM/HR (0-20)
[2020-01-15 20:10] LABS: Neutrophils Absolute Manual 6630 /uL (3000-5900); RBC Morphology Normal Morphology; Total Cells Counted 100
== END ==
PROVIDERS: PCP Internal Medicine; Visit Provider Internal Medicine
DX: J02.9 Acute pharyngitis, unspecified (principal); B37.0 Candidal stomatitis; M54.12 Radiculopathy, cervical region
CPT/HCPCS: 80053; 85025; 85651; 86140

== ENCOUNTER 2020-03-13 08:29 | Emergency (ER) | payer MEDICARE, OTHER, SELFPAY ==
[2020-03-13 08:48] VITALS: BP 172/72; PULSE 63; RESP 20; TEMP 36.4; O2SAT 99; BMI 21.9
--- NOTE | 2020-03-13 09:05 | ED_ITS ---
HPI - Headache General Chief Complaint: Headache Stated Complaint: headache/visual changes Time Seen by Provider: 03/13/20 08:57 Mode of arrival: Ambulatory Limitations: no limitations History of Present Illness HPI Narrative: CC: occipital headache with neck pain HPI: The patient is a 70-year-old female who presents to the [facility] with a severe bilateral headache behind both eyes. The patient admits to a chronic headache that she has had for the past year that has been continuous secondary to an occipital neuralgia. She states that she has chronic neck pain with cervical neuropathy and osteo degenerative arthritis from C1 through C6. The patient states that normally she has pain and discomfort that starts in the left side of her neck which radiates up along the left mastoid and to her left advent. Starting 2 weeks ago and has gotten progressively worse the patient developed pain in her right shoulder which radiated up her right neck to the right mastoid and then into her right advent. The patient believes that she has some sinus congestion with a chronic sore throat. She denies a history of glaucoma or pain directly in her eyes. The patient admits to a history of Meniere's disease with loss of hearing and her balance being off. The patient states that for the last 2 days she has had a feeling that a current has been running through her head with her eyes seeing the same current questionably movi ng left to right. This morning the patient had 2 large white spots in the center of her vision. She has otherwise denied any history of scotomata loss of vision or blurred vision. She does have intermittent diplopia. She denies any significant nasal drainage epistaxis sinus congestion at this time. She complains of a chronic persistent cough which has persisted since her lisinopril was discontinued. She denies any shortness of breath chest pain other than when she has palpitations and racing of her heart. She denies any fever or chills but has had night sweats for the last couple of nights. The patient states that she developed footdrop on the left over the last 2 days. She denies any abdominal pain nausea vomiting diarrhea melena hematochezia or change in bowel pattern at this time. She denies any urinary symptoms frequency urgency or burning. The patient sees Dr. Teixeira who ordered an MRI of her brain and MRI angiogram of her brain head and neck to help define the pathology causing her symptomatology. The patient was informed that today the MRI is down for maintenance and we are unable to obtain any MRIs today Related Data Home Medications Medication Instructions Recorded Confirmed acyclovir 5 % TOPICAL QID 03/18/18 08/12/19 diazepam [Valium] 5 mg PO DAILY PRN 03/18/18 08/12/19 fluticasone propionate [Flonase 50 mcg INTRANASAL DAILY PRN 03/18/18 08/12/19 Allergy Relief] folic acid 800 mcg PO DAILY 03/18/18 08/12/19 meclizine 12.5 mg PO DAILY 03/18/18 08/12/19 metformin 500 mg PO BID 03/18/18 08/12/19 omega-3 acid ethyl esters [Lovaza] 2 cap PO BID 03/18/18 08/12/19 pyridoxine (vitamin B6) [Vitamin 50 mg PO BID 03/18/18 08/12/19 B-6] vitamin B complex 2 tab PO DAILY 03/18/18 08/12/19 Humalog KwikPen Insulin 0 - 2 units SUBCUT BEDTIME PRN 12/18/18 08/12/19 Levemir FlexTouch U-100 Insuln 10 units SUBCUT BEDTIME PRN 12/18/18 08/12/19 Probiotic Blend 1 - 3 cap PO DAILY 12/18/18 08/12/19 acyclovir 800 mg PO DAILY PRN 12/18/18 08/12/19 ascorbic acid (vitamin C) 1 g PO DAILY 12/18/18 08/12/19 aspirin 81 mg PO DAILY 12/18/18 08/12/19 cholecalciferol (vitamin D3) 1,000 unit PO DAILY 12/18/18 08/12/19 [Vitamin D3] conjugated estrogens 0.45 mg PO DAILY 12/18/18 08/12/19 cyclosporine 1 drp EYE-BOTH BID 12/18/18 08/12/19 dicyclomine 10 mg PO DAILY PRN 12/18/18 08/12/19 lisinopril 5 mg PO QPM 12/18/18 08/12/19 mupirocin 1 applic TOPICAL BID PRN 12/18/18 08/12/19 sertraline 50 mg PO QPM 12/18/18 08/12/19 Previous Rx's Medication Instructions Recorded estradiol See Rx Instructions VAG .COMPLEX 08/12/19 #42.5 gram cyclobenzaprine 10 mg PO TID PRN #15 tab 03/13/20 prednisone 40 mg PO DAILY #6 tab 03/13/20 Allergies Allergy/AdvReac Type Severity Reaction Status Date / Time gabapentin Allergy Verified 08/12/19 09:38 Iodinated Contrast Media Allergy Verified 08/12/19 09:38 [Iodinated Contrast- Oral and IV Dye] iodine Allergy Verified 08/12/19 09:38 atorvastatin AdvReac Verified 08/12/19 09:38 prednisone AdvReac Verified 03/13/20 09:49 Review of Systems Review of Systems Narrative: The patient's review of systems were all negative except for those mentioned in the history of present illness. Patient History Medical History Chronic diarrhea (Chronic) Diabetes (Chronic) Diabetes (Acute) GERD (gastroesophageal reflux disease) (Acute) GERD with esophagitis (Resolved) Giant cell arteritis (Chronic) Giant cell arteritis (Acute) History of rectocele (Resolved) Hypertension (Chronic) Hypertension (Acute) Surgical History H/O: hysterectomy (Acute) History of bladder suspension procedure (Resolved) History of hernia repair (Acute) S/P hernia repair (Resolved) Social History household members: family and none caregiver/support person: Yes (son) Smoking Status: Former smoker alcohol intake: current Smoking Status: Former smoker alcohol intake frequency: a few times a month Substance Use Type: does not use and tranquilizers Exam Narrative Exam Narrative: PHYSICAL EXAM: CONSTITUTIONAL: Awake, Alert, Oriented, Coherent, Cooperative in NAD. Does not appear toxic or ill. HEAD: AT/NC, the patient is tender to palpation over both temples,, both maxillary sinuses, and bilateral posterior occipital ridge consistent with an occipital headache and neuropathy. There was no appreciable tenderness to palpation over the mastoid processes. No facial asymmetry. EENT: PERRL, FROM of eyes, no discharge, no nystagmus, no conjunctival in jection. NOSE:No epistaxis or nasal drainage MOUTH:Oral mucosa is moist and pink, posterior pharynx is without erythema or exudate. NECK: Supple, no obvious JVD, Trachea is midline without stridor, no palpable LN. The patient was diffusely tender to palpation along the sternocleidomastoid muscle and both sides of her anterior neck as well as the medial clavicles without bony deformity. The patient either had bilateral bruits or a transmitted systolic murmur. SPINE: Palpationof the cervical, Thoracic, Lumbar or Sacral spine reveals no gross deformity but diffuse tenderness without any specific point tenderness. The patient was tender to palpation along the right and left cervical paraspino us muscles and cervical facet joints. No CVA tenderness. THORAX: No deformity, retractions, chest wall tenderness. LUNGS: Clear, symmetrical breath sounds without respiratory distress. HEART: Normal heart tones, regular rhythm and rate with a soft grade 1-2/6 systolic murmur along the upper left sternal border. ABDOMEN: Soft, non-tender, normal bowel sounds without guarding, rebound, rigidity or palpable mass. LYMPHATIC: no palpable spleen. EXTREMITIES: No edema, deformity, tenderness or cyanosis. SKIN: No rash, bruising, petechiae or purpura. NEURO: Awake, alert, oriented, conversive, cranial nerves II-XII are symmetrical , no focal facial asymmetry moves all 4 extremities and is ambulatory. The patient has symmetrical muscle strength. There was no appreciated footdrop at this time. Initial Vital Signs Initial Vital Signs: Vital Signs Temperature 97.6 F 03/13/20 08:48 Pulse Rate 63 03/13/20 08:48 Respiratory Rate 20 03/13/20 08:48 Blood Pressure 172/72 H 03/13/20 08:48 Pulse Oximetry 99 03/13/20 08:48 Course Course Course Narrative: 1225: The patient states that she is feeling much better. Her headache is significantly improved. I explained to her that I gave her a migraine cocktail. She states that she is scheduled for an MRA of her head and neck. She states that she was seen by a neurologist who told her that she needed to be seen by an orthopedic surgeon because of her multilevel off to the genital of arthritis. I explained to her and her that an orthopedic surgeon or neurosurgeon may not do much for your neck pain without a plain MRI of the neck to look at the discs soft tissue and nerve roots. The patient will be discharged home on prednisone for 3 days a muscle relaxant and advised to continue taking her tramadol for pain and discomfort. She was advised to discuss with Dr. Teixeira and maintenance therapy for her polymyalgia rheumatica and temporal arteritis giant cell arteritis as well as a possible rescue regimen when she has a sudden flare and worsening of the discomfort. She primarily takes methotrexate to manage this. She was advised that her blood sugar will always go up when she is on prednisone or steroids. Usually this is a short duration and should not be worried about it. If she were on a sliding insulin scale she would be advised to adjust her insulin dosages. However the patient is not on insulin but is on metformin. Orders Ordered: Discontinued Medications Diphenhydramine HCl (Benadryl) 25 mg IV NOW ONE Stop: 03/13/20 08:59 Last Admin: 03/13/20 09:51 Dose: 25 mg Documented by: WILLIAM Sodium Chloride (Normal Saline 0.9%) 1,000 mls @ 1,000 mls/hr IV BOLUS ONE Stop: 03/13/20 09:52 Last Infusion: 03/13/20 11:32 Dose: 0 mls/hr Documented by: Admin: 03/13/20 09:46 Dose: 1,000 mls/hr Documented by: WILLIAM Ketorolac Tromethamine (Toradol) 15 mg IV NOW ONE Stop: 03/13/20 08:59 Last Admin: 03/13/20 09:50 Dose: 15 mg Documented by: WILLIAM Methylprednisolone (Solu-Medrol 125 Mg Vial) 125 mg IV NOW ONE Stop: 03/13/20 08:59 Last Admin: 03/13/20 10:02 Dose: 125 mg Documented by: WILLIAM Metoclopramide HCl (Reglan) 10 mg IV NOW ONE Stop: 03/13/20 08:59 Last Admin: 03/13/20 09:51 Dose: 10 mg Documented by: WILLIAM Vital Signs Vital signs: Vital Signs - 8 hr 03/13/20 08:48 Temperature 97.6 F Pulse Rate 63 Respiratory Rate 20 Blood Pressure 172/72 H Pulse Oximetry 99 MDM - Headache Lab Data Result diagrams: 03/13/20 09:06 03/13/20 09:06 Labs: Lab Results 03/13/20 03/13/20 03/13/20 Range/Units 09:06 09:06 09:06 WBC 5.5 (4.5-11.0) X10^3/uL RBC 3.71 L (4.0-5.2) X10^6/uL Hgb 11.0 L (12.0-16.0) g/dL Hct 32.5 L (36-46) % MCV 87.6 (80-100) fL MCH 29.7 (26-34) PG MCHC 34.0 (30-36) % RDW 14.0 (11.6-14.8) % Plt Count 204 (150-400) X10^3/uL Neut % (Auto) 62.0 (50-75) % Lymph % (Auto) 26.9 (25-40) % Glynn % (Auto) 6.8 (3-14) % Eos % (Auto) 3.0 (2-4) % Baso % (Auto) 1.3 (0-2) % Neut # (Auto) 3400 (2032-6501) /uL Lymph # (Auto) 1500 (3734-1147) /uL Glynn # (Auto) 400 (0-900) /uL Eos # (Auto) 200 (0-450) /uL Baso # (Auto) 100 (0-100) /uL ESR 39 H (0-20) MM/HR Sodium 135 L (137-145) mmol/L Potassium 5.0 (3.4-5.1) mmol/L Chloride 103 (98-107) mmol/L Carbon Dioxide 23 (22-32) mmol/L BUN 28 H (7-17) mg/dL Creatinine 1.11 H (0.52-1.04) mg/dL Estimated GFR 48.3 L (>60) mL/min BUN/Creatinine Ratio 25.2 H (6-22) Glucose 129 H (80-110) mg/dL Calcium 9.2 (8.4-10.2) mg/dL Total Bilirubin 0.6 (0.2-1.3) mg/dL AST 41 H (14-36) IU/L ALT 11 (<35) IU/L Alkaline Phosphatase 55 (38-126) U/L Total Creatine Kinase 43 (30-135) U/L CK-MB (CK-2) TNP CK-MB (CK-2) Rel Index TNP Troponin I 0.015 (0.01-0.034) ng/mL C-Reactive Protein < 0.5 (<1.0) mg/dL Total Protein 7.4 (6.3-8.2) g/dL Albumin 4.1 (3.5-5.0) g/dL Globulin 3.3 (1.7-4.1) g/dL Albumin/Globulin Ratio 1.2 (1.0-2.8) Point of Care Testing Glucose POC 117 ECG Data Attestation: I personally reviewed and interpreted this ECG as follows: Interpretation: The patient's EKG obtained on March 13 at 08:4 4:08 a.m. reveals a normal sinus rhythm. QRS is slightly prolonged at 120 milliseconds. QTC is normal at 440 milliseconds. [place] is normal. The patient has wide complex QRS with marked left ventricular hypertrophy. The patient has a deep S-wave in lead s V1 V2 V3 with secondary slight ST segment elevations. The patient has biphasic T-waves in leads V5 V6 lead II and AVF. She has an inverted T-wave in lead aVL. There are no other acute diagnostic ST segment changes. Discharge Plan Departure Patient Disposition: Home Clinical Impression: Non-insulin treated type 2 diabetes mellitus, Giant cell arteritis, Polymyalgia rheumatica, Chronic pain syndrome Headache Qualifiers: Headache type: unspecified Headache chronicity pattern: chronic headache Intractability: intractable Qualified Code(s): R51 - Headache Occipital neuralgia Qualifiers: Laterality: bilateral Qualified Code(s): M54.81 - Occipital neuralgia Discharge Date/Time: 03/13/20 13:12 Instructions: Giant Cell Arteritis, Polymyalgia Rheumatica, DI for Migraine, DI for Headache Activity Restrictions/Additional Instructions: 1. Follow-up with Dr. Teixeirain 48-72 hours. When they do the MRA of your head and neck ask Dr. Teixeira whether not you should have an MRI of your neck to look at the spinal cord, look for spinal stenosis, and nerve root compression. 2. Take your tramadol as prescribed for severe pain and discomfort. 3. Take the cyclobenzaprine 3 times a day as needed for muscle spasms and neck pain. 4. For your polymyalgia rheumatica and giant cell arteritis take the prednisone as prescribed for the next 3 days. Understand that her blood sugar may b be chucky vated 5. If you develop worsening chest pain that lasts longer than 15-20 minutes and is unrelieved by medications, intolerable neck or headache, shortness of breath persistent nausea and vomiting feeling faint dizzy or passing-out you need to return to the emergency department or proceed to the nearest emergency department. Prescriptions: New cyclobenzaprine 10 mg tablet 10 mg PO TID PRN (Reason: muscle spasm) Qty: 15 RF: 0 prednisone 20 mg tablet 40 mg PO DAILY Qty: 6 RF: 0 No Action estradiol [Estrace] 0.01 % (0.1 mg/gram) cream See Rx Instructions VAG .COMPLEX Qty: 42.5 RF: 3 acyclovir 5 % Ointment 5 % Topical QID RF: 0 vitamin B complex Tablet 2 tab PO DAILY RF: 0 meclizine 12.5 mg Tablet 12.5 mg PO DAILY RF: 0 metformin 1,000 mg Tablet 500 mg PO BID RF: 0 fluticasone propionate [Flonase Allergy Relief] 50 mcg/actuation Mineral,Suspension 50 mcg Intranasal DAILY PRN (Reason: Allergy Symptoms) RF: 0 folic acid 800 mcg Tablet 800 mcg PO DAILY RF: 0 diazepam [Valium] 5 mg Tablet 5 mg PO DAILY PRN (Reason: Anxiety) RF: 0 omega-3 acid ethyl esters [Lovaza] 1 gram Capsule 2 cap PO BID RF: 0 pyridoxine (vitamin B6) [Vitamin B-6] 50 mg Capsule 50 mg PO BID RF: 0 lisinopril 5 mg tablet 5 mg PO QPM RF: 0 sertraline 50 mg tablet 50 mg PO QPM RF: 0 cyclosporine 0.05 % dropperette 1 drp EYE-BOTH BID RF: 0 conjugated estrogens 0.45 mg tablet 0.45 mg PO DAILY RF: 0 ascorbic acid (vitamin C) 1,000 mg Tablet 1 g PO DAILY RF: 0 aspirin 81 mg Tablet,Delayed Release (Dr/Ec) 81 mg PO DAILY RF: 0 acyclovir 800 mg Tablet 800 mg PO DAILY PRN (Reason: Outbreak) RF: 0 mupirocin 2 % Ointment 1 applic TOPICAL BID PRN (Reason: unknown) RF: 0 dicyclomine 10 mg Capsule 10 mg PO DAILY PRN (Reason: diverticulosis) RF: 0 Humalog KwikPen Insulin 100 unit/mL Insulin Pen 0 - 2 units subcut BEDTIME PRN (Reason: BS > 300) RF: 0 cholecalciferol (vitamin D3) [Vitamin D3] 1,000 unit Tablet 1,000 unit PO DAILY RF: 0 Probiotic Blend 2 billion cell-50 mg Capsule 1 - 3 cap PO DAILY RF: 0 Levemir FlexTouch U-100 Insuln 10 units subcut BEDTIME PRN (Reason: BS > 300) RF: 0 Referrals: Sonja Teixeira MD [Primary Care Provider] -
[2020-03-13 09:16] LABS: Add Manual Diff / Slide Review NO; Basophils Absolute Auto 100 /uL (0-100); Basophils Percent Auto 1.3 % (0-2); Eosinophils Absolute Auto 200 /uL (0-450); Hematocrit 32.5 % (36-46); Lymphocytes Absolute Auto 1500 /uL (1100-4500); Lymphocytes Percent Auto 26.9 % (25-40); Mean Corpuscular Hemoglobin 29.7 PG (26-34); Mean Corpuscular Volume 87.6 fL (80-100); Monocytes Absolute Auto 400 /uL (0-900); Monocytes Percent Auto 6.8 % (3-14); Neutrophils Absolute Auto 3400 /uL (1500-7000); Platelet Count 204 X10^3/uL (150-400); Red Blood Cell Count 3.71 X10^6/uL (4.0-5.2); White Blood Cell Count 5.5 X10^3/uL (4.5-11.0)
--- NOTE | 2020-03-13 09:24 | DI.CT.S_ITS ---
PROCEDURE: CT HEAD/BRAIN WO CON INDICATIONS: severe bilateral headache behind her eyes with diplopia TECHNIQUE: Noncontrast 4.5 mm thick angled axial sections acquired from the foramen magnum to the vertex, with coronal and sagittal reformats. For radiation dose reduction, the following was used: automated exposure control, adjustment of mA and/or kV according to patient size. COMPARISON: [facility], CT, CT HEAD WITHOUT CONTRAST, 07/28/2019, 14:43. [facility], CT, CT CERVICAL SPINE WO CON, 03/13/2020, 9:32. FINDINGS: Image quality: Excellent. CSF spaces: Basal cisterns are patent. No extra-axial fluid collections. The ventricles are symmetric in size and shape. Brain: No intracranial bleeds or masses. There is cerebral volume loss for age, with resultant ventricular and sulcal prominence. There are periventricular and deep white matter chronic small vessel ischemic changes. There is intracranial internal carotid artery atherosclerosis. Skull and face: Calvarium and visualized facial bones appear intact, without suspicious lesions. Sinuses: Visualized sinuses and mastoids are clear. IMPRESSION: No imaging explanation is found for this patient's presenting symptoms. No acute intracranial hemorrhage is seen. No masses or mass effect can be seen. Dictated by: Ted Rain M.D. on 03/13/2020 at 9:08 Approved by: Ted Rain M.D. on 03/13/2020 at 9:09
--- NOTE | 2020-03-13 09:24 | DI.CT.S_ITS ---
PROCEDURE: CT CERVICAL SPINE WO CON INDICATIONS: severe neck pain TECHNIQUE: Noncontrast 3 mm thick sections acquired from the skull base to the T4 level. Sagittal and coronal reformats were then constructed. For radiation dose reduction, the following was used: automated exposure control, adjustment of mA and/or kV according to patient size. COMPARISON: [facility], CT, CT HEAD/BRAIN WO CON, 03/13/2020, 9:32. [facility], CT, CT SOFT TISSUE NECK WO CON, 01/13/2020, 10:32. FINDINGS: Image quality: Excellent. Bones: No fractures or dislocations. Visualized superior ribs are intact. Degenerative changes are seen, focal to change involving C1-C2 interface anteriorly. Calcification can be seen within the C2-C3 disease, as on series 6 image 37. Partial fusion of the facet joints can be seen at C2-C3. There is mild grade 1 anterolisthesis seen at C4-C5. Moderate to severe disc space narrowing is seen at C5-C6 where there is at least moderate disc space narrowing seen at C6-C7. Minimal anterolisthesis is seen at C6-C7. Soft tissues: Prevertebral soft tissues are normal in thickness. No paravertebral hematomas. No apical pneumothoraces. IMPRESSION: No acute abnormality is seen. Multiple levels of degenerative change can be seen. Dictated by: Ted Rain M.D. on 03/13/2020 at 9:10 Approved by: Ted Rain M.D. on 03/13/2020 at 9:13
[2020-03-13 09:26] LABS: Creatine Kinase 43 U/L (30-135)
[2020-03-13 09:30] LABS: Alanine Aminotransferase 11 IU/L (<35); Albumin 4.1 g/dL (3.5-5.0); Albumin Globulin Ratio 1.2 (1.0-2.8); Alkaline Phosphatase 55 U/L (38-126); Aspartate Aminotransferase 41 IU/L (14-36); BUN Creatinine Ratio 25.2 (6-22); Bilirubin Total 0.6 mg/dL (0.2-1.3); Blood Urea Nitrogen 28 mg/dL (7-17); Calcium 9.2 mg/dL (8.4-10.2); Carbon Dioxide 23 mmol/L (22-32); Chloride 103 mmol/L (98-107); Estimated Glomerular Filt Rate 48.3 mL/min (>60); Globulin 3.3 g/dL (1.7-4.1); Glucose 129 mg/dL (80-110); Sodium 135 mmol/L (137-145); Total Protein 7.4 g/dL (6.3-8.2)
[2020-03-13 09:33] LABS: C-Reactive Protein Quant < 0.5 mg/dL (<1.0); HEMOLYSIS 113 (0-50)
[2020-03-13 09:34] LABS: Erythrocyte Sedimentation Rate 39 MM/HR (0-20)
[2020-03-13 09:40] LABS: Troponin I 0.015 ng/mL (0.01-0.034)
[2020-03-13] MEDS: SODIUM CHLORIDE 0.9% 1,000 ML 1000 ML IV (09:46)
[2020-03-13] MEDS: KETOROLAC 60 MG/2 ML VIAL 15 MG IV (09:50)
[2020-03-13] MEDS: diphenhydrAMINE 50 MG/ML VIAL 25 MG IV (09:51)
[2020-03-13] MEDS: METOCLOPRAMIDE 10 MG/2 ML INJ IV (09:51)
[2020-03-13] MEDS: methylPREDNISolone 125 MG/2 ML VIAL IV (10:02)
[2020-03-13 12:30] VITALS: BP 149/67; PULSE 60; RESP 20; O2SAT 96
== END 2020-03-13 13:12 | disposition home or self-care (01) ==
PROVIDERS: Emergency Provider Emergency Medicine; PCP Internal Medicine
DX: R51 Headache (principal); M54.81 Occipital neuralgia; E11.9 Type 2 diabetes mellitus without complications; M31.6 Other giant cell arteritis; M35.3 Polymyalgia rheumatica; G89.4 Chronic pain syndrome
CPT/HCPCS: 36415; 70450; 72125; 80053; 82550; 82962; 84484; 85025; 85651; 86140; 93005; 96361; 96374; 96375; 99284; J1200; J1885; J2765; J2930

== ENCOUNTER → 2020-03-15 15:36 | Outpatient (CLI) | payer MEDICARE, OTHER, SELFPAY ==
--- NOTE | 2020-03-15 | DI.MRI.S_ITS ---
PROCEDURE: MR ANGIO HEAD WO CON INDICATIONS: CRANIAL NEUROPATHY, CERVICAL RADICULOPATHY TECHNIQUE: Noncontrast axial 3-D [id number] MR angiogram, with 3-dimensional maximum intensity projection (MIP) reformats of the internal carotid arteries and posterior circulation then performed. COMPARISON: [facility], CT, CT HEAD/BRAIN WO CON, 03/13/2020, 9:32. [facility], MR, MR ANGIO NECK WO CON, 03/15/2020, 16:40. [facility], MR, MR CERVICAL SPINE WO CON, 03/15/2020, 16:40. [facility], MR, MR HEAD/BRAIN WO CON, 03/15/2020, 16:17. FINDINGS: Image quality: Excellent. Anterior circulation: Intracranial internal carotid arteries demonstrate normal size and intraluminal flow signal. There is a hypoplastic right A1 segment, with a corresponding robust left A1 segment. This is considered to be a normal developmental variant of the [place] of [place], of typically no clinical consequence. The flow within the paired anterior cerebral arteries is otherwise normal and symmetric. The flow within the middle cerebral arteries is normal and symmetric. The anterior communicating artery is seen. No stenoses, occlusions, or aneurysms. Posterior circulation: The right vertebral artery is dominant to the left. The left vertebral artery largely terminates in the left posterior inferior cerebellar artery, with only a small portion of the flow joining with the right vertebral artery to form a normal appearing basilar artery. The flow within the posterior cerebral arteries is normal and symmetric. No stenoses, occlusions, or aneurysms. IMPRESSION: No significant intracranial arterial abnormality is seen. Note is made of developmental variants, which are not regarded to be pathologic: * Hypoplastic left A1 segment * The distal left vertebral artery largely terminates in the left posterior inferior cerebellar artery. Dictated by: Ted Rain M.D. on 03/15/2020 at 16:49 Approved by: Ted Rain M.D. on 03/15/2020 at 16:52
--- NOTE | 2020-03-15 | DI.MRI.S_ITS ---
PROCEDURE: MR ANGIO NECK WO CON INDICATIONS: CRANIAL NEUROPATHY, CERVICAL RADICULOPATHY TECHNIQUE: Axial and sagittal TruFISP through the neck. This study was performed without contrast, as ordered by the clinician. 3-D [id number] technique was utilized. COMPARISON: [facility], MR, MR CERVICAL SPINE WO CON, 03/15/2020, 16:40. [facility], MR, MR HEAD/BRAIN WO CON, 03/15/2020, 16:17. [facility], MR, MR ANGIO HEAD WO CON, 03/15/2020, 15:58. [facility], CT, CT CERVICAL SPINE WO CON, 03/13/2020, 9:32. [facility], CT, CT SOFT TISSUE NECK WO CON, 01/13/2020, 10:32. [facility], CT, CT HEAD/BRAIN WO CON, 03/13/2020, 9:32. FINDINGS: Image quality: Limited by lack of IV contrast. Carotid system: Incidental note is made of a common origin of the right brachiocephalic artery and the left common carotid artery (bovine type arch). This is considered to be a developmental variant of no clinical consequence. The origins of the common carotid arteries appear normal. The calibers and courses of the common carotid arteries are likewise normal. The carotid bifurcations appear normal bilaterally. The internal carotid arteries are patent up to the [place] of [place]. Posterior circulation: The origins of the vertebral arteries are unremarkable. The more superior portions of the vertebral arteries demonstrate normal course and caliber. Vertebral arteries join to form a normal appearing basilar artery. Miscellaneous: Subclavian arteries are within normal limits for technique. IMPRESSION: Within the arteries of the neck, no hemodynamically significant stenosis can be seen. Study limited by lack of IV contrast. Bovine type aortic branching pattern incidentally noted. Any quantitative measurements of stenosis were performed using NASCET criteria. Dictated by: Ted Rain M.D. on 03/15/2020 at 17:02 Approved by: Ted Rain M.D. on 03/15/2020 at 17:05
--- NOTE | 2020-03-15 | DI.MRI.S_ITS ---
PROCEDURE: MR CERVICAL SPINE WO CON INDICATIONS: CRANIAL NEUROPATHY, CERVICAL RADICULOPATHY TECHNIQUE: Noncontrast sagittal T1 spin echo and T2 fast spin echo, sagittal STIR, foraminal oblique sagittal T2 fast spin echo, and axial gradient echo or T2 fast spin echo through the cervical spine. COMPARISON: [facility], CT, CT CERVICAL SPINE WO CON, 03/13/2020, 9:32. [facility], CT, CT SOFT TISSUE NECK WO CON, 01/13/2020, 10:32. [facility], MR, MR ANGIO NECK WO CON, 03/15/2020, 16:40. [facility], MR, MR HEAD/BRAIN WO CON, 03/15/2020, 16:17. [facility], MR, MR ANGIO HEAD WO CON, 03/15/2020, 15:58. FINDINGS: Image quality: Diagnostic, with note made of motion artifact. Alignment and Curvature: There is minimal retrolisthesis seen at the C4-C5 and the C5-C6 level. Bone Marrow: Marrow demonstrates normal overall signal. Spinal Cord: Visualized spinal cord has normal size and signal. No cerebellar tonsillar herniation. Paraspinous Soft Tissues: No paravertebral masses. Prevertebral soft tissues are normal in thickness. C2-C3: No significant abnormality is seen. C3-C4: The disc height is well-preserved. Loss of disc signal is seen at this level. A mild degree of generalized disc osteophyte complex is seen. Moderate facet joint hypertrophy is seen. There is moderate to severe bilateral neural foraminal narrowing seen. C4-C5: The disc height is relatively well-preserved. There is loss of disc signal seen. Mild to moderate disc osteophyte complex is seen. There is moderate to severe right-sided and moderate left-sided neural foraminal narrowing seen. Mild central canal narrowing is seen. C5-C6: Mild to moderate disc osteophyte complex is seen. There is prominent bilateral neural foraminal narrowing seen. Moderate to severe bilateral neural foraminal narrowing seen. Moderate central canal narrowing is seen. C6-C7: Moderate loss of disc height is seen. Loss of disc signal is seen. Moderate disc osteophyte complex is seen, which is eccentric to the left. There is at least moderate facet hypertrophy seen at this level. There is moderate to severe bilateral neural foraminal narrowing seen. Mild central canal narrowing is seen. C7-T1: Mild loss of disc height is seen. Loss of disc signal is seen. Moderate generalized disc osteophyte complex is seen. Moderate facet joint hypertrophy is seen. Mild bilateral neural foraminal narrowing is seen. No significant central canal narrowing is seen. IMPRESSION: Multiple levels of cervical spine degenerative change are seen, which are most prominent at C5-C6 and C6-C7. Dictated by: Ted Rain M.D. on 03/15/2020 at 16:55 Approved by: Ted Rain M.D. on 03/15/2020 at 17:02
--- NOTE | 2020-03-15 | DI.MRI.S_ITS ---
PROCEDURE: MR HEAD/BRAIN WO CON INDICATIONS: CRANIAL NEUROPATHY. CERVICAL RADICULOPATHY TECHNIQUE: Non-contrast axial T1 spin echo, axial T2 fast spin echo, sagittal and axial FLAIR, coronal T2 fast spin echo, axial gradient echo, axial diffusion and ADC through the brain. COMPARISON: [facility], CT, CT HEAD/BRAIN WO CON, 03/13/2020, 9:32. [facility], MR, MR ANGIO HEAD WO CON, 03/15/2020, 15:58. [facility], MR, MR CERVICAL SPINE WO CON, 03/15/2020, 16:40. [facility], MR, MR ANGIO NECK WO CON, 03/15/2020, 16:40. FINDINGS: Image quality: Diagnostic, with note made of motion artifact. CSF spaces: Ventricles appear symmetric in size and shape. Basal cisterns are patent. No extra-axial fluid collections. Brain: No intracranial bleeds or mass effects. There is cerebral volume loss for age. There are periventricular and deep white matter chronic small vessel ischemic changes. Brainstem appears normal. Diffusion-weighted images show no acute ischemic insults. Prominent perivascular spaces can be seen. No chronic ischemic insults. Normal intravascular flow voids are present. Skull and face: Calvarial bone marrow is normal in signal. Orbits are normal. Note is made of bilateral lens replacements. Sinuses: Sinuses and mastoids are clear. IMPRESSION: No findings of acute or subacute infarction can be seen. Note is made of age-appropriate brain parenchymal volume loss and chronic small vessel ischemic changes. Incidental note is made of: Prominent perivascular spaces Bilateral lens replacements Dictated by: Ted Rain M.D. on 03/15/2020 at 16:53 Approved by: Ted Rain M.D. on 03/15/2020 at 16:54
== END ==
PROVIDERS: PCP Internal Medicine; Referring Provider Internal Medicine; Visit Provider Internal Medicine
DX: G52.9 Cranial nerve disorder, unspecified (principal); M47.22 Other spondylosis with radiculopathy, cervical region
CPT/HCPCS: 70544; 70547; 70551; 72141

== ENCOUNTER → 2020-04-11 11:54 | Outpatient (CLI) | payer MEDICARE, OTHER, SELFPAY ==
[2020-03-21 13:22] VITALS: BMI 24.3
--- NOTE | 2020-04-11 11:57 | DI.RAD.S_ITS ---
PROCEDURE: XR CERVICAL SPINE 4V OR 5V INDICATIONS: neck pain TECHNIQUE: 5 views of the cervical spine acquired. COMPARISON: [facility], CT, CT CERVICAL SPINE WO CON, 03/13/2020, 9:32. [facility], MR, MR CERVICAL SPINE WO CON, 03/15/2020, 16:40. [facility], MR, MR ANGIO NECK WO CON, 03/15/2020, 16:40. FINDINGS: Bones: No fractures or dislocations to the superior endplate of T1 level. Oblique images demonstrate mild bony foraminal stenoses most pronounced at C5-C6. Similar moderate degenerative change most advanced at C5-C6. Soft tissues: No prevertebral soft tissue swelling. IMPRESSION: No acute osseous abnormality. Moderate degenerative change most pronounced at C5-C6. Dictated by: Walter Pierson M.D. on 04/11/2020 at 12:56 Approved by: Walter Pierson M.D. on 04/11/2020 at 12:59
== END ==
PROVIDERS: PCP Internal Medicine; Referring Provider Physical Medicine & Rehabilitation; Visit Provider Physical Medicine & Rehabilitation
DX: M54.2 Cervicalgia (principal); M47.812 Spondylosis without myelopathy or radiculopathy, cervical region; M48.02 Spinal stenosis, cervical region; E11.9 Type 2 diabetes mellitus without complications; R51 Headache
CPT/HCPCS: 72050; 99214

== ENCOUNTER → 2020-05-03 08:43 | Outpatient (CLI) | payer MEDICARE, OTHER, SELFPAY ==
[2020-03-21 13:22] VITALS: BMI 24.3
--- NOTE | 2020-05-03 | DI.CT.S_ITS ---
PROCEDURE: CT SOFT TISSUE NECK WO CON INDICATIONS: Cervicalgia TECHNIQUE: Non-contrast 3.0 mm axial sections acquired from the sella to the aortic arch. Additional oblique axial 3.0 mm sections acquired through the pharynx. 3 mm thick coronal and sagittal reformats were generated. For radiation dose reduction, the following was used: automated exposure control. COMPARISON: [facility], MR, MR ANGIO NECK WO CON, 03/15/2020, 16:40. [facility], MR, MR CERVICAL SPINE WO CON, 03/15/2020, 16:40. [facility], MR, MR HEAD/BRAIN WO CON, 03/15/2020, 16:17. [facility], MR, MR ANGIO HEAD WO CON, 03/15/2020, 15:58. [facility], CT, CT HEAD/BRAIN WO CON, 03/13/2020, 9:32. [facility], CT, CT CERVICAL SPINE WO CON, 03/13/2020, 9:32. [facility], CT, CT SOFT TISSUE NECK WO CON, 01/13/2020, 10:32. FINDINGS: Image quality: Excellent. Lymph nodes: No enlarged lymph nodes seen throughout the neck. Vessels: Non-opacified vessels appear normal in caliber. Neck spaces: The oropharynx, nasopharynx, and pharynx demonstrate no mucosal lesions. The vocal cords, false vocal cords, pyriform sinuses, epiglottis, vallecula, and tongue base all appear normal. Extramucosal spaces appear unremarkable. Glands: The parotid and submandibular glands appear normal, without stones. Thyroid gland is unremarkable. Miscellaneous: Visualized brain and orbits appear normal. Lung apices appear clear. Superficial soft tissues appear normal. IMPRESSION: 1. Stable interval exam demonstrating no acute abnormality. Dictated by: Lily Chung M.D. on 05/03/2020 at 14:29 Approved by: Lily Chung M.D. on 05/03/2020 at 14:31
--- NOTE | 2020-05-03 | DI.US.S_ITS ---
PROCEDURE: US THYROID INDICATIONS: ENLARGED THYROID TECHNIQUE: Real-time scanning was performed of the thyroid gland, with image documentation. COMPARISON: None. FINDINGS: Right: Thyroid lobe measures 3.9 x 1.3 x 1.3 cm, and is homogeneous in echotexture. Left: Thyroid lobe measures 3.6 x 1.0 1.0 cm, and is homogenous in echotexture. Isthmus: 2.2 mm thick. Nodule number: 1 Location: Right mid to inferior Size: 0.6 x 0.5 x 0.5 cm. Composition: Predominant solid Echogenicity: Hypoechoic Shape: wider than tall. Margins: Smooth Echogenic foci: Internal punctate echogenic foci Total points: 7 ACR TI-RADS category: Highly suspicious Nodule number: 2 Location: Right mid Size: 1.3 x 0.9 x 1.0 cm. Composition: Solid Echogenicity: Hypoechoic Shape: wider than tall. Margins: Smooth Echogenic foci: Internal punctate echogenic foci Total points: 7 ACR TI-RADS category: Highly suspicious IMPRESSION: Highly suspicious bilateral thyroid nodules. Recommend sonographically directed fine needle aspiration involving the 1.3 cm right thyroid nodule and continued sonographic surveillance. ACR TI-RADS definitions and recommendations: TI-RADS 1 (benign): 0 points. FNA not needed. TI-RADS 2 (not suspicious): 2 points. FNA not needed. TI-RADS 3 (mildly suspicious): 3 points. * FNA if 2.5 cm or larger, follow up if 1.5 cm or larger (at 1, 3, and 5 years). TI-RADS 4 (moderately suspicious): 4-6 points. * FNA if 1.5 cm or larger, follow up if 1 cm or larger (at 1, 2, 3, and 5 years). TI-RADS 5 (highly suspicious): 7 points or more. * FNA if 1 cm or larger, follow up if 0.5 cm or larger (every year for 5 years). Dictated by: Lobo MAST Interpreted: Yolanda Posey MD on 05/03/2020 at 12:38 Approved by: Yolanda Posey M.D. on 05/03/2020 at 14:14
== END ==
PROVIDERS: PCP Internal Medicine; Referring Provider Internal Medicine; Visit Provider Internal Medicine
DX: M54.2 Cervicalgia (principal); R93.89 Abnormal findings on diagnostic imaging of other specified body structures; E04.2 Nontoxic multinodular goiter
CPT/HCPCS: 70490; 76536

== ENCOUNTER → 2020-05-11 10:01 | Outpatient (CLI) | payer MEDICARE, OTHER, SELFPAY ==
[2020-03-21 13:22] VITALS: BMI 24.3
--- NOTE | 2020-05-11 11:22 | DI.CT.S_ITS ---
PROCEDURE: CT CHEST ABDOMEN WO CON INDICATIONS: Other chest pain TECHNIQUE: After the administration of oral contrast, 5 mm thick sections acquired from the pulmonary apices to the iliac crests. 5 mm thick coronal and sagittal reformats acquired, with additional 7 mm coronal MIP reformats through the lungs. For radiation dose reduction, the following was used: automated exposure control, adjustment of mA and/or kV according to patient size. COMPARISON: None. FINDINGS: Image quality: Reduced due to the absence of intravenous contrast, in this patient with prior allergic reaction.. CHEST: Lungs and pleura: No acute pulmonary opacities. No pleural effusions or pneumothorax. Central and peripheral airways are patent and normal in caliber. Mediastinum: Heart size is normal. No pericardial effusion. No mediastinal adenopathy by size criteria. Thoracic aorta and central pulmonary arteries are normal in size. Esophagus is normal in caliber. No hiatal hernia. Chest wall: No axillary or supraclavicular adenopathy by size criteria. Thyroid gland appears normal. ABDOMEN: Solid organs: Liver is normal in size. Gallbladder appears normal. Pancreas is normal in contours. Spleen is normal in size. No adrenal nodules. Both kidneys are normal in size, without hydronephrosis or nephrolithiasis. Peritoneum and bowel: Small and large bowel loops are normal in caliber and wall thickness. No free fluid or air. Nodes and vessels: No retroperitoneal or mesenteric adenopathy by size criteria. Aorta and inferior vena cava are normal in caliber. Miscellaneous: No ventral hernias. IMPRESSION: Quality of visualization is somewhat limited by absence of intravenous contrast (prior history of allergic reaction). No acute disease is found, no free fluid is identified throughout the pleural or peritoneal spaces. Source of current pain is not identified. Dictated by: Yuval Cao M.D. on 05/11/2020 at 14:11 Approved by: Yuval Cao M.D. on 05/11/2020 at 14:35
== END ==
PROVIDERS: PCP Internal Medicine; Referring Provider Internal Medicine; Visit Provider Internal Medicine
DX: R07.89 Other chest pain (principal)
CPT/HCPCS: 71250; 74150

== ENCOUNTER 2020-06-17 17:49 | Emergency (ER) | payer MEDICARE, OTHER, SELFPAY ==
[2020-03-21 13:22] VITALS: BMI 24.3
[2020-06-17] VITALS (10 sets, daily range): BP systolic 134–200; BP diastolic 61–82; PULSE 68–85; RESP 18–24; TEMP 36.6–36.9; O2SAT 88–100; BMI 22.8
--- NOTE | 2020-06-17 19:38 | ED_ITS ---
HPI - Abdominal Pain General Chief Complaint: Abdominal Pain Stated Complaint: LEFT GROIN PAIN POSSIBLE HERNIA Time Seen by Provider: 06/17/20 19:37 Source: patient Mode of arrival: Ambulatory Limitations: no limitations History of Present Illness HPI narrative: 70-year-old female former smoker with a history of thyroid lesion, prior left inguinal hernia with bowel complications presents with her at the request of her primary care provider. She recently had a biopsy of a thyroid lesion and though she has had difficulty in swallowing for many months she feels like it might be worse in the aftermath of this procedure few days ago. Her discharge instructions encouraged prompt presentation to the emergency department for difficulty swallowing. A few years ago she had a surgery to repair a left inguinal hernia. For the past few days she's had LLQ pain which is at time severe and in the location of her previous surgery. She had seen her PCP and after evaluation there is concern that she may have r ecurrence of hernia. She denies N/V/D or other signs of obstruction. MD complaint: abdominal pain Onset (ago): day(s) Pain Consistency: intermittent Location: LLQ Severity: moderate Quality: cramping and aching Migration to: no migration Relieving factors: rest Exacerbating factors: movement Associated symptoms: denies other symptoms Related Data Home Medications Medication Instructions Recorded Confirmed acyclovir 5 % TOPICAL QID 03/18/18 04/11/20 fluticasone propionate [Flonase 50 mcg INTRANASAL DAILY PRN 03/18/18 04/11/20 Allergy Relief] folic acid 800 mcg PO DAILY 03/18/18 04/11/20 meclizine 12.5 mg PO DAILY 03/18/18 08/12/19 omega-3 acid ethyl esters [Lovaza] 2 cap PO BID 03/18/18 08/12/19 pyridoxine (vitamin B6) [Vitamin 50 mg PO BID 03/18/18 04/11/20 B-6] vitamin B complex 2 tab PO DAILY 03/18/18 04/11/20 Humalog KwikPen Insulin 0 - 2 units SUBCUT BEDTIME PRN 12/18/18 04/11/20 Levemir FlexTouch U-100 Insuln 10 units SUBCUT BEDTIME PRN 12/18/18 04/11/20 Probiotic Blend 1 - 3 cap PO DAILY 12/18/18 08/12/19 acyclovir 800 mg PO DAILY PRN 12/18/18 04/11/20 ascorbic acid (vitamin C) 1 g PO DAILY 12/18/18 04/11/20 aspirin 81 mg PO DAILY 12/18/18 04/11/20 cholecalciferol (vitamin D3) 1,000 unit PO DAILY 12/18/18 04/11/20 [Vitamin D3] conjugated estrogens 0.45 mg PO DAILY 12/18/18 04/11/20 cyclosporine 1 drp EYE-BOTH BID 12/18/18 04/11/20 dicyclomine 10 mg PO DAILY PRN 12/18/18 08/12/19 lisinopril 5 mg PO QPM 12/18/18 08/12/19 mupirocin 1 applic TOPICAL BID PRN 12/18/18 04/11/20 sertraline 50 mg PO QPM 12/18/18 08/12/19 tramadol 50 mg tablet 50 mg PO Q8H PRN 04/11/20 04/11/20 verapamil PO DAILY 04/11/20 04/11/20 Previous Rx's Medication Instructions Recorded estradiol See Rx Instructions VAG .COMPLEX 08/12/19 #42.5 gram Allergies Allergy/AdvReac Type Severity Reaction Status Date / Time shellfish derived Allergy Severe Anaphylaxis Verified 04/11/20 13:53 gabapentin Allergy Verified 04/11/20 13:52 Iodinated Contrast Media Allergy Verified 04/11/20 13:52 [Iodinated Contrast- Oral and IV Dye] prednisone AdvReac Severe severe Verified 04/11/20 14:05 hypoglycemia atorvastatin AdvReac Verified 04/11/20 13:52 Review of Systems Constitutional Constitutional: Denies chills, Denies fatigue, Denies fever(s), Denies frequent falls, Denies lethargy and Denies weakness Eyes Eyes: Denies change in vision, Denies eye discharge, Denies irritation and Denies loss of vision ENT Ears, Nose, Mouth, and Throat: Denies change in voice, Denies dizziness, Denies neck pain, Denies sore throat and Reports throat swelling Cardiovascular Cardiovascular: Denies chest pain, Denies irregular heart rhythm, Denies lightheadedness, Denies palpitations, Denies dyspnea, Denies dyspnea on exertion and Denies orthopnea Respiratory Respiratory: Denies cough, Denies dyspnea, Denies dyspnea on exertion and Denies wheezing Gastrointestinal Gastrointestinal: Reports abdominal pain, Denies change in bowel habits, Denies diarrhea, Denies nausea and Denies vomiting Musculoskeletal Musculoskeletal: Denies neck pain and Denies numbness Integumentary/Breasts Skin/Breast: Denies pruritus, Denies erythema, Denies rash and Denies wounds Neurologic Neurologic: Denies behavioral changes, Denies confusion, Denies dizziness, Denies frequent falls, Denies loss of vision, Denies numbness and Denies weakness Psychiatric Psychiatric: Denies anxiety, Denies behavioral changes, Denies confusion, Denies depression, Denies homicidal ideation and Denies suicidal ideation Endocrine Endocrine: Denies fatigue, Denies flushing and Denies palpitations Hematologic/Lymphatic Hematologic/Lymphatic: Denies easy bruising Allergic/Immunologic Allergic/Immunologic: Denies urticaria, Reports throat swelling and Denies wheezing Patient History Medical History Atrophic vulvovaginitis (Acute) Cervical stenosis of spinal canal (Acute) Cervicogenic headache (Acute) Chronic diarrhea (Chronic) Diabetes (Chronic) Diabetes (Acute) GERD (gastroesophageal reflux disease) (Acute) GERD with esophagitis (Resolved) Giant cell arteritis (Chronic) Giant cell arteritis (Acute) History of rectocele (Resolved) Hypertension (Chronic) Hypertension (Acute) Surgical History H/O: hysterectomy (Acute) History of bladder suspension procedure (Resolved) History of hernia repair (Acute) S/P hernia repair (Resolved) Family History Father Heart disease Mother Heart disease Social History household members: family and none caregiver/support person: Yes (son) Smoking Status: Former smoker alcohol intake: current Smoking Status: Former smoker alcohol intake frequency: a few times a month Substance Use Type: does not use and tranquilizers Exam Narrative Exam Narrative: GENERAL: [70] year old patient appears stated age. Well- nourished, well-developed patient, in mild distress. Anxious. No perception of difficulty in breathing. Managing her secretions well HEAD: Atraumatic. Normocephalic. EYES: Pupils equal round and reactive. Extraocular motions intact. No scleral icterus. No injection or drainage. ENT: Nose without bleeding, purulent drainage. Throat without erythema, to nsillar hypertrophy or exudate. Airway patent. NECK: Trachea midline. Non tender. No obvious external manifestation of swelling, infection, bleeding or other CARDIOVASCULAR: Regular rate and rhythm without murmurs, gallops, or rubs. RESPIRATORY: Clear to auscultation. Breath sounds equal bilaterally. No wheezes, rales, or rhonchi. GASTROINTESTINAL: Abdomen soft, tender in LLQ, no obvious hernia., nondistended. EXTREMITIES: No edema or joint tenderness. BACK: Nontender without deformity or crepitance. No flank tenderness. NEURO: AOx3. SKIN: No rash or erythema of visible areas Initial Vital Signs Initial Vital Signs: Vital Signs Temperature 98.5 F 06/17/20 17:54 Pulse Rate 70 06/17/20 17:54 Respiratory Rate 18 06/17/20 17:54 Blood Pressure 177/79 H 06/17/20 17:54 Pulse Oximetry 99 06/17/20 17:54 Course Orders Ordered: ED Orders 06/17/20 19:34 EKG-12 Lead Stat 06/17/20 19:49 Complete Blood Count AUTO DIFF Stat Comprehensive Metabolic Panel Stat Lipase Stat Partial Thromboplastin Time Stat Prothrombin Time INR Stat 06/17/20 20:23 CT abdomen pelvis w con Stat CT soft tissue neck w con Stat Discontinued Medications Diphenhydramine HCl (Benadryl) 25 mg IV NOW ONE Stop: 06/17/20 20:22 Last Admin: 06/17/20 20:39 Dose: 25 mg Documented by: TERESITA Hydralazine HCl (Apresoline) 10 mg IV NOW ONE Stop: 06/17/20 21:31 Last Admin: 06/17/20 21:54 Dose: 10 mg Documented by: TERESITA Hydromorphone HCl (Dilaudid) 0.5 mg IV NOW ONE Stop: 06/17/20 20:22 Last Admin: 06/17/20 20:38 Dose: 0.5 mg Documented by: TERESITA Famotidine (Pepcid) 20 mg in 50 mls @ 200 mls/hr IV NOW ONE Stop: 06/17/20 20:36 Last Infusion: 06/17/20 21:27 Dose: 0 mls/hr Documented by: Admin: 06/17/20 20:40 Dose: 200 mls/hr Documented by: TERESITA Sodium Chloride (Normal Saline 0.9%) 1,000 mls @ 1,000 mls/hr IV BOLUS ONE Stop: 06/17/20 21:20 Last Admin: 06/17/20 20:36 Dose: 1,000 mls/hr Documented by: TERESITA Methylprednisolone (Solu-Medrol 125 Mg Vial) 125 mg IV NOW ONE Stop: 06/17/20 20:22 Last Admin: 06/17/20 20:37 Dose: 125 mg Documented by: TERESITA Ondansetron HCl (Zofran) 4 mg IV NOW ONE Stop: 06/17/20 20:22 Last Admin: 06/17/20 20:36 Dose: 4 mg Documented by: TERESITA Vital Signs Vital signs: Vital Signs - 8 hr 06/17/20 19:39 06/17/20 20:54 06/17/20 21:18 Temperature 97.9 F Pulse Rate 71 68 70 Respiratory Rate 20 24 Blood Pressure 151/78 H 200/81 H 197/82 H Pulse Oximetry 100 88 L 100 06/17/20 21:46 06/17/20 21:54 06/17/20 21:55 Temperature Pulse Rate 71 68 69 Respiratory Rate Blood Pressure 180/74 H 180/74 H Pulse Oximetry 88 L 95 06/17/20 22:00 06/17/20 22:33 06/17/20 22:59 Temperature Pulse Rate 70 76 85 Respiratory Rate Blood Pressure 134/61 136/64 Pulse Oximetry 98 97 MDM - Abdominal Pain Lab Data Result diagrams: 06/17/20 19:49 06/17/20 19:49 Labs: Lab Results 06/17/20 06/17/20 06/17/20 Range/Units 19:49 19:49 19:49 WBC 6.4 (4.5-11.0) X10^3/uL RBC 3.82 L (4.0-5.2) X10^6/uL Hgb 11.3 L (12.0-16.0) g/dL Hct 33.7 L (36-46) % MCV 88.4 (80-100) fL MCH 29.6 (26-34) PG MCHC 33.4 (30-36) % RDW 13.9 (11.6-14.8) % Plt Count 236 (150-400) X10^3/uL Neut % (Auto) 58.0 (50-75) % Lymph % (Auto) 30.2 (25-40) % [place]ike % (Auto) 7.2 (3-14) % Eos % (Auto) 3.2 (2-4) % Baso % (Auto) 1.4 (0-2) % Neut # (Auto) 3700 (1727-8068) /uL Lymph # (Auto) 1900 (9720-7284) /uL Pike # (Auto) 500 (0-900) /uL Eos # (Auto) 200 (0-450) /uL Baso # (Auto) 100 (0-100) /uL PT 10.4 (10.1-12.7) SECONDS INR 0.9 (0.9-1.3) APTT 32 D (26.4-36.2) SECONDS Sodium 133 L (137-145) mmol/L Potassium 4.5 (3.4-5.1) mmol/L Chloride 99 (98-107) mmol/L Carbon Dioxide 31 (22-32) mmol/L BUN 15 (7-17) mg/dL Creatinine 1.16 H (0.52-1.04) mg/dL Estimated GFR 45.9 L (>60) mL/min BUN/Creatinine Ratio 12.9 (6-22) Glucose 86 (80-110) mg/dL Calcium 9.0 (8.4-10.2) mg/dL Total Bilirubin 0.4 (0.2-1.3) mg/dL AST 28 (14-36) IU/L ALT 9 (<35) IU/L Alkaline Phosphatase 74 (38-126) U/L Total Protein 7.1 (6.3-8.2) g/dL Albumin 4.0 (3.5-5.0) g/dL Globulin 3.1 (1.7-4.1) g/dL Albumin/Globulin Ratio 1.3 (1.0-2.8) Lipase 570 H (23-300) U/L Point of care testing: Point of Care Testing Glucose POC 87 Urine Dip Bedside Urine Glucose Negative Bedside Urine Bilirubin - Negative Bedside Urine Ketone - Negative Urine Specific [place] 1.015 Bedside Urine Occult Blood - Negative Bedside Urine pH 5.5 Bedside Urine Protein - Negative Bedside Urine Urobilinogen - Negative Bedside Urine Nitrite - Negative Bedside Urine Leukocytes - Negative Esterase Imaging Data CT scan - abdomen/pelvis: Radiologist's Impression: Qiana Jackson 70 F [address] [address] [address] Scan Report Signed Patient: Qiana Jackson ATTILAJaimie#: [id number] : 8Acct:[id number] Age/Sex: 70 / FDate of Service: 06/17/20 Loc: ED Accession Number: [id number] Procedure: CT abdomen pelvis w con Ordering Provider: Rodri Ramirez D.O. PROCEDURE: CT SOFT TISSUE NECK W CON INDICATIONS: severe LLQ pain TECHNIQUE: After the administration of intravenous contrast, 3.0 mm axial sections acquired from the sella to the aortic arch. Additional oblique axial 3.0 mm sections acquired through the pharynx. 3 mm thick coronal and sagittal reformats were generated. For radiation dose reduction, the following was used: automated exposure control. no acute COMPARISON: [facility], CT, CT SOFT TISSUE NECK WO CON, 05/03/2020, 8:42. FINDINGS: Image quality: Excellent. Lymph nodes: No enlarged lymph nodes seen throughout the neck. Vessels: Visualized vasculature appears patent. Neck spaces: The oropharynx, nasopharynx, and pharynx demonstrate no mucosal lesions. The vocal cords, false vocal cords, pyriform sinuses, epiglottis, vallecula, and tongue base all appear normal. Extramucosal spaces appear unremarkable. Glands: The parotid and submandibular glands appear normal. Thyroid gland appears stable. Miscellaneous: Visualized brain and orbits appear normal. Lung apices appear clear. Superficial soft tissues appear normal. Bones: No suspicious bony lesions. Visualized sinuses and mastoids appear unremarkable. Mild degenerative changes are seen in the cervical spine. IMPRESSION: No acute abnormality is identified in the neck. Dictated by: Daniel Richey M.D. on 06/17/2020 at 22:28 Approved by: Daniel Richey M.D. on 06/17/2020 at 22:33 Soft Tissue of the Neck: Radiologist's Impression: Qiana Jackson 70 F [address] [address] [address] Scan Report Signed Patient: Qiana Jackson LMR#: [id number] : 1950Acct:[id number] Age/Sex: 70 / FDate of Service: 06/17/20 Loc: ED Accession Number: [id number] Procedure: CT soft tissue neck w con Ordering Provider: Rodri Ramirez D.O. PROCEDURE: CT ABDOMEN PELVIS W CON INDICATIONS: pain, difficulty swallowing, recent biopsy TECHNIQUE: After the administration of intravenous contrast, 5 mm thick sections acquired from the diaphragm to the symphysis. 5 mm coronal and sagittal reformats were acquired. For radiation dose reduction, the following was used: automated exposure control, adjustment of mA and/or kV according to patient size. COMPARISON: None. FINDINGS: Image quality: Excellent. ABDOMEN: Lung bases: Lung bases are clear. Heart size is normal. Solid organs: Multiple hypodense lesions in both lobes of the liver are nonspecific, but most likely represent cysts. Mild intrahepatic biliary duct dilatation is seen in the right inferior liver. There is mild enlargement of the common bile duct to 8 mm. The gallbladder appears normal. No focal stricture or mass is seen along the course of the bile ducts. The pancreas enhances normally. There is no enlargement of the main pancreatic duct. The spleen is normal in size. No adrenal nodule is seen. The kidneys enhance symmetrically without hydronephrosis. Peritoneum and bowel: A few diverticula are seen in the sigmoid colon without signs of acute diverticulitis. There are no signs of small bowel obstruction. The appendix appears normal. Nodes and vessels: No retroperitoneal or mesenteric adenopathy by size criteria. Aorta and inferior vena cava are normal in size. Moderate atherosclerotic calc ifications are seen in the aorta. Miscellaneous: No ventral hernias. PELVIS: Genitourinary: Bladder wall thickness is normal. The uterus is not seen, most likely related to a prior hysterectomy. No adnexal mass is identified. Miscellaneous: No inguinal hernias or adenopathy. Bones: No suspicious bony lesions. No vertebral body compression fractures. Electronic device is seen in the right posterior subcutaneous tissues with a lead extending into the right presacral region. There is mild dextroconvex curvature of the lumbar spine with mild degenerative changes. IMPRESSION: 1. Mild intrahepatic biliary ductal dilatation within the inferior portion of the right hepatic lobe. There is also borderline dilation of the common bile duct. No compressive mass is identified. Consider short-term follow-up or MRCP for further evaluation. 2. Mild sigmoid diverticulosis without signs of acute diverticulitis. Dictated by: Daniel Richey M.D. on 06/17/2020 at 22:33 Approved by: Daniel Richey M.D. on 06/17/2020 at 22:43 Discharge Plan Departure Patient Disposition: Home Clinical Impression: Abdominal pain, acute, left lower quadrant, Throat fullness Discharge Date/Time: 06/17/20 23:54 Instructions: DI for Abdominal Pain-Adult Activity Restrictions/Additional Instructions: *You have been diagnosed with [left lower quadrant abdominal pain and throat fullness. The imaging, lab work and exam are very reassuring. There is no evidence of bowel obstruction, trouble with hernia or other abnormality of the CT scan of her abdomen. Furthermore, there is no evidence of infection, inflammation, bleeding or other abnormal finding on the CT scan of your throat.] *What to do: *Take medications as directed *Follow up with your primary care provider in 2-3 days, call for an appointment. Let them know you were seen in the Emergency Department and that we ask that you be seen in follow up *Return to ER if you should have any new, worsening or concerning symptoms Prescriptions: No Action estradiol [Estrace] 0.01 % (0.1 mg/gram) cream See Rx Instructions VAG .COMPLEX Qty: 42.5 RF: 3 acyclovir 5 % Ointment 5 % Topical QID RF: 0 vitamin B complex Tablet 2 tab PO DAILY RF: 0 meclizine 12.5 mg Tablet 12.5 mg PO DAILY RF: 0 fluticasone propionate [Flonase Allergy Relief] 50 mcg/actuation [place],Suspension 50 mcg Intranasal DAILY PRN (Reason: Allergy Symptoms) RF: 0 folic acid 800 mcg Tablet 800 mcg PO DAILY RF: 0 omega-3 acid ethyl esters [Lovaza] 1 gram Capsule 2 cap PO BID RF: 0 pyridoxine (vitamin B6) [Vitamin B-6] 50 mg Capsule 50 mg PO BID RF: 0 lisinopril 5 mg tablet 5 mg PO QPM RF: 0 sertraline 50 mg tablet 50 mg PO QPM RF: 0 cyclosporine 0.05 % dropperette 1 drp EYE-BOTH BID RF: 0 conjugated estrogens 0.45 mg tablet 0.45 mg PO DAILY RF: 0 ascorbic acid (vitamin C) 1,000 mg Tablet 1 g PO DAILY RF: 0 aspirin 81 mg Tablet,Delayed Release (Dr/Ec) 81 mg PO DAILY RF: 0 acyclovir 800 mg Tablet 800 mg PO DAILY PRN (Reason: Outbreak) RF: 0 mupirocin 2 % Ointment 1 applic TOPICAL BID PRN (Reason: unknown) RF: 0 dicyclomine 10 mg Capsule 10 mg PO DAILY PRN (Reason: diverticulosis) RF: 0 Humalog KwikPen Insulin 100 unit/mL Insulin Pen 0 - 2 units subcut BEDTIME PRN (Reason: BS > 300) RF: 0 cholecalciferol (vitamin D3) [Vitamin D3] 1,000 unit Tablet 1,000 unit PO DAILY RF: 0 Probiotic Blend 2 billion cell-50 mg Capsule 1 - 3 cap PO DAILY RF: 0 Levemir FlexTouch U-100 Insuln 10 units subcut BEDTIME PRN (Reason: BS > 300) RF: 0 verapamil PO DAILY RF: 0 tramadol 50 mg tablet 50 mg PO Q8H PRNRF: 0 Referrals: Sonja Teixeira MD [Primary Care Provider] -
[2020-06-17 19:56] LABS: Add Manual Diff / Slide Review NO; Basophils Absolute Auto 100 /uL (0-100); Basophils Percent Auto 1.4 % (0-2); Eosinophils Absolute Auto 200 /uL (0-450); Eosinophils Percent Auto 3.2 % (2-4); Hematocrit 33.7 % (36-46); Hemoglobin 11.3 g/dL (12.0-16.0); Lymphocytes Absolute Auto 1900 /uL (1100-4500); Lymphocytes Percent Auto 30.2 % (25-40); Mean Corpuscular HGB Conc 33.4 % (30-36); Mean Corpuscular Hemoglobin 29.6 PG (26-34); Mean Corpuscular Volume 88.4 fL (80-100); Monocytes Absolute Auto 500 /uL (0-900); Monocytes Percent Auto 7.2 % (3-14); Neutrophils Absolute Auto 3700 /uL (1500-7000); Platelet Count 236 X10^3/uL (150-400); Red Blood Cell Count 3.82 X10^6/uL (4.0-5.2); Red Cell Distribution Width 13.9 % (11.6-14.8); White Blood Cell Count 6.4 X10^3/uL (4.5-11.0)
[2020-06-17 20:04] LABS: INR 0.9 (0.9-1.3); Prothrombin Time 10.4 SECONDS (10.1-12.7)
[2020-06-17 20:06] LABS: PTT Partial Thromboplastin Tim 32 SECONDS (26.4-36.2)
[2020-06-17 20:11] LABS: Alanine Aminotransferase 9 IU/L (<35); Albumin Globulin Ratio 1.3 (1.0-2.8); Alkaline Phosphatase 74 U/L (38-126); Aspartate Aminotransferase 28 IU/L (14-36); BUN Creatinine Ratio 12.9 (6-22); Bilirubin Total 0.4 mg/dL (0.2-1.3); Blood Urea Nitrogen 15 mg/dL (7-17); Carbon Dioxide 31 mmol/L (22-32); Chloride 99 mmol/L (98-107); Estimated Glomerular Filt Rate 45.9 mL/min (>60); Globulin 3.1 g/dL (1.7-4.1); Glucose 86 mg/dL (80-110); HEMOLYSIS < 15 (0-50); Lipase 570 U/L (23-300); Potassium 4.5 mmol/L (3.4-5.1); Sodium 133 mmol/L (137-145); Total Protein 7.1 g/dL (6.3-8.2)
--- NOTE | 2020-06-17 20:23 | DI.CT.S_ITS ---
PROCEDURE: CT SOFT TISSUE NECK W CON INDICATIONS: severe LLQ pain TECHNIQUE: After the administration of intravenous contrast, 3.0 mm axial sections acquired from the sella to the aortic arch. Additional oblique axial 3.0 mm sections acquired through the pharynx. 3 mm thick coronal and sagittal reformats were generated. For radiation dose reduction, the following was used: automated exposure control. no acute COMPARISON: [facility], CT, CT SOFT TISSUE NECK WO CON, 05/03/2020, 8:42. FINDINGS: Image quality: Excellent. Lymph nodes: No enlarged lymph nodes seen throughout the neck. Vessels: Visualized vasculature appears patent. Neck spaces: The oropharynx, nasopharynx, and pharynx demonstrate no mucosal lesions. The vocal cords, false vocal cords, pyriform sinuses, epiglottis, vallecula, and tongue base all appear normal. Extramucosal spaces appear unremarkable. Glands: The parotid and submandibular glands appear normal. Thyroid gland appears stable. Miscellaneous: Visualized brain and orbits appear normal. Lung apices appear clear. Superficial soft tissues appear normal. Bones: No suspicious bony lesions. Visualized sinuses and mastoids appear unremarkable. Mild degenerative changes are seen in the cervical spine. IMPRESSION: No acute abnormality is identified in the neck. Dictated by: Daniel Richey M.D. on 06/17/2020 at 22:28 Approved by: Daniel Richey M.D. on 06/17/2020 at 22:33
--- NOTE | 2020-06-17 20:23 | DI.CT.S_ITS ---
PROCEDURE: CT ABDOMEN PELVIS W CON INDICATIONS: pain, difficulty swallowing, recent biopsy TECHNIQUE: After the administration of intravenous contrast, 5 mm thick sections acquired from the diaphragm to the symphysis. 5 mm coronal and sagittal reformats were acquired. For radiation dose reduction, the following was used: automated exposure control, adjustment of mA and/or kV according to patient size. COMPARISON: None. FINDINGS: Image quality: Excellent. ABDOMEN: Lung bases: Lung bases are clear. Heart size is normal. Solid organs: Multiple hypodense lesions in both lobes of the liver are nonspecific, but most likely represent cysts. Mild intrahepatic biliary duct dilatation is seen in the right inferior liver. There is mild enlargement of the common bile duct to 8 mm. The gallbladder appears normal. No focal stricture or mass is seen along the course of the bile ducts. The pancreas enhances normally. There is no enlargement of the main pancreatic duct. The spleen is normal in size. No adrenal nodule is seen. The kidneys enhance symmetrically without hydronephrosis. Peritoneum and bowel: A few diverticula are seen in the sigmoid colon without signs of acute diverticulitis. There are no signs of small bowel obstruction. The appendix appears normal. Nodes and vessels: No retroperitoneal or mesenteric adenopathy by size criteria. Aorta and inferior vena cava are normal in size. Moderate atherosclerotic calcifications are seen in the aorta. Miscellaneous: No ventral hernias. PELVIS: Genitourinary: Bladder wall thickness is normal. The uterus is not seen, most likely related to a prior hysterectomy. No adnexal mass is identified. Miscellaneous: No inguinal hernias or adenopathy. Bones: No suspicious bony lesions. No vertebral body compression fractures. Electronic device is seen in the right posterior subcutaneous tissues with a lead extending into the right presacral region. There is mild dextroconvex curvature of the lumbar spine with mild degenerative changes. IMPRESSION: 1. Mild intrahepatic biliary ductal dilatation within the inferior portion of the right hepatic lobe. There is also borderline dilation of the common bile duct. No compressive mass is identified. Consider short-term follow-up or MRCP for further evaluation. 2. Mild sigmoid diverticulosis without signs of acute diverticulitis. Dictated by: Daniel Richey M.D. on 06/17/2020 at 22:33 Approved by: Daniel Richey M.D. on 06/17/2020 at 22:43
[2020-06-17] MEDS: SODIUM CHLORIDE 0.9% 1,000 ML 1000 ML IV (20:36)
[2020-06-17] MEDS: ONDANSETRON 4 MG/2 ML INJ IV (20:36)
[2020-06-17] MEDS: methylPREDNISolone 125 MG/2 ML VIAL IV (20:37)
[2020-06-17] MEDS: HYDROMORPHONE 0.5 MG INJ IV (20:38)
[2020-06-17] MEDS: diphenhydrAMINE 50 MG/ML VIAL 25 MG IV (20:39)
[2020-06-17] MEDS: FAMOTIDINE 20 MG/50 ML PIGGYBACK 200 MG IV (20:40)
[2020-06-17] MEDS: HYDRALAZINE 20 MG/ML VIAL 10 MG IV (21:54)
== END 2020-06-17 23:54 | disposition home or self-care (01) ==
PROVIDERS: Emergency Provider Emergency Medicine; PCP Internal Medicine
DX: R10.32 Left lower quadrant pain (principal); R13.10 Dysphagia, unspecified
CPT/HCPCS: 36415; 70491; 74177; 80053; 81003; 82962; 83690; 85025; 85610; 85730; 93005; 93010; 96365; 96375; 99284; J0360; J1170; J1200; J2405; J2930; Q9967

== ENCOUNTER 2020-06-27 12:54 | Emergency (ER) | payer MEDICARE, OTHER, SELFPAY ==
[2020-03-21 13:22] VITALS: BMI 24.3
[2020-06-27] VITALS (11 sets, daily range): BP systolic 136–169; BP diastolic 68–93; PULSE 64–84; RESP 17–27; TEMP 36.6; O2SAT 91–99; BMI 22.3
--- NOTE | 2020-06-27 13:11 | DI.RAD.S_ITS ---
PROCEDURE: XR CHEST 2V INDICATIONS: shortness of breath TECHNIQUE: 2 views of the chest were acquired. COMPARISON: [facility], CT, CT CHEST ABDOMEN WO CON, 05/11/2020, 11:03. [facility], CR, XR CHEST 1V, 03/14/2019, 22:19. FINDINGS: Surgical changes and devices: None. Lungs and pleura: Lungs are clear. No pleural effusions or pneumothorax. Mediastinum: The cardiac contours are within normal limits. The aorta demonstrates calcification and tortuosity. Bones and chest wall: No suspicious bony abnormalities. Age-appropriate bony degenerative changes are seen. S-shaped scoliotic curvature is seen. Soft tissues appear unremarkable. IMPRESSION: No acute cardiopulmonary process is seen. Dictated by: Ted Rain M.D. on 06/27/2020 at 12:46 Approved by: Ted Rain M.D. on 06/27/2020 at 12:47
[2020-06-27 14:18] LABS: Add Manual Diff / Slide Review NO; Basophils Absolute Auto 100 /uL (0-100); Eosinophils Absolute Auto 100 /uL (0-450); Hematocrit 38.6 % (36-46); Hemoglobin 13.2 g/dL (12.0-16.0); Lymphocytes Absolute Auto 1400 /uL (1100-4500); Lymphocytes Percent Auto 26.6 % (25-40); Mean Corpuscular HGB Conc 34.3 % (30-36); Mean Corpuscular Hemoglobin 30.1 PG (26-34); Mean Corpuscular Volume 87.8 fL (80-100); Monocytes Absolute Auto 400 /uL (0-900); Monocytes Percent Auto 7.9 % (3-14); Neutrophils Absolute Auto 3400 /uL (1500-7000); Neutrophils Percent Auto 63.5 % (50-75); Platelet Count 246 X10^3/uL (150-400); Red Blood Cell Count 4.39 X10^6/uL (4.0-5.2); Red Cell Distribution Width 13.8 % (11.6-14.8); White Blood Cell Count 5.3 X10^3/uL (4.5-11.0)
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
[2020-06-27 14:30] LABS: Alanine Aminotransferase 13 IU/L (<35); Albumin 4.6 g/dL (3.5-5.0); Albumin Globulin Ratio 1.3 (1.0-2.8); Alkaline Phosphatase 75 U/L (38-126); Aspartate Aminotransferase 32 IU/L (14-36); BUN Creatinine Ratio 12.1 (6-22); Bilirubin Total 0.4 mg/dL (0.2-1.3); Blood Urea Nitrogen 18 mg/dL (7-17); Calcium 9.6 mg/dL (8.4-10.2); Carbon Dioxide 29 mmol/L (22-32); Chloride 94 mmol/L (98-107); Estimated Glomerular Filt Rate 34.4 mL/min (>60); Globulin 3.6 g/dL (1.7-4.1); Glucose 130 mg/dL (80-110); HEMOLYSIS 16 (0-50); Lactate (Lactic Acid) 1.2 mmol/L (0.7-2.1); Potassium 4.6 mmol/L (3.4-5.1); Sodium 133 mmol/L (137-145); Total Protein 8.2 g/dL (6.3-8.2)
[2020-06-27 15:13] LABS: Troponin I < 0.012 ng/mL (0.01-0.034)
[2020-06-27] MEDS: SODIUM CHLORIDE 0.9% 1,000 ML 1000 ML IV (16:19)
[2020-06-28 11:46] LABS: COVID19 Sendout Not Detected (Not Detected)
== END 2020-06-27 18:06 | disposition home or self-care (01) ==
PROVIDERS: Emergency Provider Emergency Medicine; PCP Internal Medicine
DX: K59.00 Constipation, unspecified (principal); E86.0 Dehydration; R53.83 Other fatigue; R06.02 Shortness of breath
CPT/HCPCS: 36415; 71046; 80053; 81003; 83605; 84484; 85025; 87635; 93005; 96360; 96361; 99284

== ENCOUNTER → 2020-08-12 09:41 | Outpatient (CLI) | payer MEDICARE, OTHER, SELFPAY ==
[2020-03-21 13:22] VITALS: BMI 24.3
--- NOTE | 2020-08-12 09:45 | DI.US.S_ITS ---
PROCEDURE: US ABDOMEN LIMITED INDICATIONS: Left groin and right upper quadrant pain TECHNIQUE: Real-time focused scanning was performed of the abdomen, with image documentation. COMPARISON: [facility], CT, CT ABDOMEN PELVIS W CON, 06/17/2020, 21:29. [facility], US, US ABDOMEN LIMITED, 10/29/2018, 13:58. FINDINGS: The liver demonstrates normal size. Within the caudate lobe, there is an avascular cystic appearing area with low level echoes seen that measures up to 1.5 cm. No findings of gallstones or sludge are seen. The gallbladder wall is not thickened, measuring 3 mm or less. No specific pericholecystic fluid is seen. The sonographic Arnold sign is negative. Mild intrahepatic biliary ductal dilatation is seen, with a duct within the right liver inferiorly measuring 4 mm. The common bile duct is mildly prominent, measuring 8-9 mm. No significant pancreatic abnormality is seen on these images. No findings of left inguinal hernia can be seen. No abnormal ultrasound findings are seen within the area of prior hernia hernia repair and scar. The patient is tender when scanning over the right-side, secondary to remote prior rib fractures. IMPRESSION: No recurrent left inguinal hernia. Normal appearing gallbladder. Mild biliary dilatation. If clinically appropriate, an MRCP could be considered for further evaluation (assuming that there is no contraindication to MRI). Apparent caudate lobe liver cyst. Dictated by: Ted Rain M.D. on 08/12/2020 at 12:54 Approved by: Ted Rain M.D. on 08/12/2020 at 12:57
== END ==
PROVIDERS: PCP Internal Medicine; Referring Provider Surgery; Visit Provider Surgery
DX: R10.11 Right upper quadrant pain (principal); R10.32 Left lower quadrant pain; K83.8 Other specified diseases of biliary tract; Z87.19 Personal history of other diseases of the digestive system; Z98.890 Other specified postprocedural states
CPT/HCPCS: 76705

== ENCOUNTER 2020-08-17 10:30 | Outpatient (RCR) | payer MEDICARE, OTHER, SELFPAY ==
[2020-03-21 13:22] VITALS: BMI 24.3
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
--- NOTE | 2020-08-22 15:20 | PT-IP ANOTE ---
Pt leaves message and states that she has to cancel tomorrow's appointment d/t contrast testing tomorrow for her abdomen per general surgeon. Will also cancel next week's appointment. Will keep 09/05/2020 appointment unless she ends up having surgery scheduled for any abdominal issue found. Pt states that she has been walking on [place] since last treatment as far as her neck feeling better.
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
== END 2020-09-13 11:09 ==
LOC: PHYS 10:30
PROVIDERS: PCP Internal Medicine; Referring Provider Psychiatry & Neurology Neurology; Visit Provider Psychiatry & Neurology Neurology
DX: M99.01 Segmental and somatic dysfunction of cervical region (principal)
CPT/HCPCS: 97110; 97140; 97162; 97535

== ENCOUNTER → 2020-08-23 07:19 | Outpatient (CLI) | payer MEDICARE, OTHER, SELFPAY ==
[2020-03-21 13:22] VITALS: BMI 24.3
--- NOTE | 2020-08-23 07:21 | DI.NM.S_ITS ---
PROCEDURE: NM HIDA WITH CCK PHARMACEUTICAL: 5.5 mCi Tc-99m mebrofenin IV; 1.1 mcg CCK IV. INDICATIONS: Rule out biliary dyskinesia TECHNIQUE: Following intravenous administration of Tc-99m mebrofenin, sequential anterior abdominal images were obtained. To evaluate the contractile response of the gallbladder in response to Cholecystokinin (CCK), sincalide (0.02 ?g/kg) was administered by slow intravenous infusion approximately 60 minutes after the administration of the radiopharmaceutical. Sequential imaging was continued for 40 minutes after the initiation of CCK infusion. Gallbladder ejection fraction was calculated. COMPARISON: None. FINDINGS: Biliary scan: There is normal tracer uptake and excretion by the liver. There is normal visualization of the intrahepatic ducts, common bile duct, and gallbladder. There is normal tracer transit into the duodenum. CCK stimulation: There is normal contractile response of the gallbladder to CCK infusion. The calculated gallbladder ejection fraction is 79 percent; normal values are above 35%. It has been shown that any patient abdominal pain after CCK administration is related to the rate of CCK injection, rather than to any underlying gallbladder disease (Clinical Nuclear Medicine 2012; 37: 63-70. Journal of Nuclear Medicine 2014; 55: 1-9). IMPRESSION: Normal hepatobiliary scan. Normal gallbladder ejection fraction. Dictated by: Alfonso Harden M.D. on 08/23/2020 at 10:24 Approved by: Alfonso Harden M.D. on 08/23/2020 at 10:25
== END ==
PROVIDERS: PCP Internal Medicine; Referring Provider Surgery; Visit Provider Surgery
DX: R10.11 Right upper quadrant pain (principal)
CPT/HCPCS: 78227; A9537; J2805

== ENCOUNTER → 2020-08-28 13:44 | Outpatient (CLI) | payer MEDICARE, OTHER, SELFPAY ==
[2020-03-21 13:22] VITALS: BMI 24.3
[2020-08-29 14:10] LABS: COVID19 -Nasal RAPID Negative (Negative)
== END ==
PROVIDERS: PCP Internal Medicine; Visit Provider Physician Assistant
DX: Z11.59 Encounter for screening for other viral diseases (principal)
CPT/HCPCS: 87635

== ENCOUNTER 2020-08-31 08:42 | Observation (INO) | payer MEDICARE, OTHER, SELFPAY ==
[2020-03-21 13:22] VITALS: BMI 24.3
[2020-08-29 10:57] VITALS: BMI 21.5
[2020-08-31] VITALS (20 sets, daily range): BP systolic 81–141; BP diastolic 35–70; PULSE 60–83; RESP 13–49; TEMP 36.2–37.6; O2SAT 96–100; BMI 21.5
--- NOTE | 2020-08-31 | PATH_ITS ---
[facility] Accession Number: [id number] . 01 Material submitted: . gallbladder - GALLBLADDER AND CONTENTS . 02 Diagnosis: Gallbladder and Contents, Cholecystectomy: Mild chronic cholecystitis with reactive epithelial changes. No evidence of neoplasm. MRV 09/05/2020 1216 Local . 02 Electronically signed: . Vladislav Sanderson MD, PhD, Pathologist NPI- [id number] . 01 Gross description: . Received in formalin, labeled gallbladder and contents, and consists of a 7.0 x 3.0 x 2.5 cm intact gallbladder with a 0.3 cm in diameter cystic duct. The serosa is quinn-green and smooth. Opening reveals green viscous bile with no choleliths identified. The mucosa is linton-green and velvety, and the wall thickness measures 0.1 cm. Processing Archivist sections are submitted, to include the en face cystic duct margin (black), body and fundus in cassette A1. (EA:[id number]) /MRV 09/01/2020 1416 Local . 02 Pathologist provided ICD-10: K81.1 . 02 CPT . 629016 Performed at: 01 [facility] [address] [facility], [place], [place] [id number] MD Jose A Singh MD Phone: [phone] Performed at: 02 [facility] [address] [place], [place] [id number] MD Monique Dos Santos MD Phone: [phone]
[2020-08-31] MEDS: ACETAMINOPHEN 325 MG TABLET 975 MG PO (09:43)
[2020-08-31] MEDS: LACTATED RINGERS 1,000 ML 42 ML IV (09:44)
--- NOTE | 2020-08-31 10:46 | PM.PREOP ---
Pre-operative Note COVID-19 COVID-19 status: Negative Result date/Date tested (Pos, Neg/Pending): 08/28/20 Interval Note History & Physical reviewed/Exam performed by Physician: Yes Changes to H&P: No
[2020-08-31] MEDS: PIPERACILLIN-TAZO 3.375 GM/50 ML FROZ.PIGGY IV (11:09)
--- NOTE | 2020-08-31 11:32 | SUR.OPER ---
Supine on padded OR bed, head on pillow, arms secured on padded arm boards at <90 degrees abduction, legs uncrossed, safety belt at thigh, tape over blanket over lower legs.
[2020-08-31] MEDS: BUPIVACAINE 0.25% W/ EPI 30 ML VIAL INJ (11:38)
--- NOTE | 2020-08-31 12:32 | P.OP_ITS ---
Operative Date/Time/Diagnoses Date of procedure: 08/31/20 Time of procedure: 12:32 Pre-op diagnosis: Biliary hyperkinesia Post-op diagnosis: same (Chronic acalculous cholecystitis with biliary hyperkinesia) Procedure & Clinicians Procedure: Laparoscopic cholecystectomy Same procedure as scheduled: Yes Indications: Biliary hyperkinesia Surgeon: Rosa Navarrete Click Yes if Unassisted: Yes Anesthesia Type: General Operative Notes Findings: Large distended gall bladder, with adhesions of the omentum and stomach to the gall bladder wall Specimen(s): other (Gall bladder and contents) Estimated Blood Loss (mL): 2 Procedure in detail: The patient was brought into the operating room and placed supine on the OR table. Sequential compression devices were placed on both legs and turned on. Appropriate perioperative antibiotics were given prior to the start of surgery. General anesthesia was induced the patient was intubated. The abdomen was prepped and draped in sterile fashion. Surgical time-out was conducted. Local anesthetic was injected under the skin just superior to the umbilicus and a 5 mm vertical incision was made at this site. The umbilical stalk was grasped with a Amos and elevated. A Veress needle was passed through the fascia into proper position. The position was tested with a saline drop test which was appropriate for intra-abdominal Veress needle placement. The abdomen was then insufflated in the usual fashion. Once insufflated to 15 mm Hg the Veress needle was removed and a 5 mm optical trocar was placed under direct vision using a 5 mm 30 degree scope. Once the camera was inside the abdomen I took a look around. There was no injury from port placement. Two additional ports were placed in a similar fashion in the right upper quadrant and a 10 mm port was placed in the epigastrium. Extensive inflammatory adhesions of the omentum and stomach to the gall bladder were seen. The adhesions were taken down with scissors and hook cautery. Once the gall bladder was freed from the adhesions, it was grasped and elevated and the infundibulum was retracted laterally to the patient's right. This exposed the gallbladder hilum and allowed for dissection of the cystic duct and cystic artery. The cystic duct and artery were viewed, and the common bile duct below was seen well away from the field of dissection. The cystic duct and artery were carefully dissected out and I was able to see liver behind and between both structures without any other structures in the way, giving us the critical view of safety. At this point I triply clipped both structures on the patient's side and put a single clip on the gallbladder side of both the cystic duct and artery. Both structures were then divided with laparoscopic Bluejacket. Following this the gallbladder was gradually dissected free from the liver using L hook cautery. A posterior arterial branch was identified in the usual position and was clipped and divided in the same fashion. Once the gallbladder was entirely freed, it was placed inside an Endo-Catch bag and removed through the epigastric port site. I did not have to enlarge the epigastric site in order to get the gallbladder out. Once it was out and passed off to the back table I then took another look inside the abdomen. I suctioned clean any remaining blood or fluid on the lateral side of the liver and in the subhepatic space. There was no active bleeding or leaking of bile from the gallbladder fossa or from the clipped stumps of the cystic duct and artery. At this point the insufflation was removed from the abdomen and the epigastric port site was closed with 0 Vicryl suture in the fascia, 3 O Vicryl in the subcutaneous layers, and 4 Monocryl in the skin. The remaining port sites were closed with 4 Monocryl in the skin. Each port site was sealed with Dermabond. Local anesthetic was given at each of the port sites and in the fascia. This concluded the procedure. At this point the needle sponge and instrument counts were correct. The gallbladder was passed off the table for pathology. Patient was awakened from anesthesia and extubated. She was transferred to the postanesthesia care unit in stable condition. Complications: none Post-operative Condition: stable Disposition: PACU
[2020-08-31] MEDS: METOPROLOL TARTRATE 5 MG/5 ML INJ IV (12:35)
[2020-08-31] MEDS: fentaNYL 100 MCG/2 ML INJ IV ×3 (12:39→12:52)
[2020-08-31] MEDS: ASPIRIN 81 MG CHEW TAB PO (12:42)
[2020-08-31 12:56] LABS: Creatine Kinase 36 U/L (30-135)
[2020-08-31 12:57] LABS: BUN Creatinine Ratio 21.7 (6-22); Blood Urea Nitrogen 26 mg/dL (7-17); Calcium 8.8 mg/dL (8.4-10.2); Carbon Dioxide 24 mmol/L (22-32); Chloride 106 mmol/L (98-107); Estimated Glomerular Filt Rate 44.2 mL/min (>60); Glucose 175 mg/dL (80-110); HEMOLYSIS < 15 (0-50); Potassium 4.4 mmol/L (3.4-5.1); Sodium 135 mmol/L (137-145)
[2020-08-31] MEDS: OXYCODONE IR 5 MG TABLET PO ×3 (13:06→19:09)
[2020-08-31 13:09] LABS: Troponin I < 0.012 ng/mL (0.01-0.034)
[2020-08-31 13:31] LABS: Magnesium 1.8 mg/dL (1.6-2.3)
--- NOTE | 2020-08-31 14:30 | PC.NURSE ---
Pt arrived to the acute care floor at 1415. She is a & o x 3 and she is eating vanilla pudding. She was able to move herself from stretcher to bed without issue. She denies n/v but does c/o pain to her RUQ right shoulder and neck as 5-6/10 on the pain scale after re-education on the pain scale. Pt has been previously medicated by PACU nurse with 10mg Oxycodone. Pt is sitting up in bed and talking with her . She has been oriented to the room.
--- NOTE | 2020-08-31 14:38 | SUR.PHASEI ---
Pt arrived from PACU, woke up and c/o heavy feeling in chest and difficulty breathing. Notified Dr Hook and Viola and Antonio RNs assisted with care. 12 lead EKG ordered and obtained, labs drawn and records from [facility] obtaied. After discussion with Dr Hook, pt states pain is in her RUQ and also in R neck. Explained to pt that is likely d/t gallbladder removal however we did run tests to make sure her heart was ok as well. Pt stated pain was 8-9/10 after she received 100 of fentanyl and 5mg oxy, appeared relaxed. Gave second tab of oxy prior to transfer upstairs. At one point in time pt stated she had trouble seeing and vision was blurry, asked pt if she wore glasses and she stated she did, once glasses were on her vision was improved. report given to Ciara PALMA, transfered to room 205 in .
[2020-08-31] MEDS: SODIUM CHLORIDE 0.9% 1,000 ML 50 ML IV (16:00)
[2020-08-31] MEDS: diphenhydrAMINE 12.5 MG/5 ML UDC PO (16:42)
--- NOTE | 2020-08-31 17:23 | P.CONS_ITS ---
History of Present Illness Consult details Date Patient Seen: 08/31/20 Chief complaint: SDC Reason for consult: Postoperative chest pain Requesting provider: Rosa Navarrete Narrative: Qiana Jackson is a 70-year-old female with a past medical history significant for stress-induced cardiomyopathy, left bundle branch block, NSTEMI status post left heart catheterization in 07/2019 which did not identify any obstructive coronary disease, hypertension, diabetes mellitus type 2, non-insulin using, chronic kidney disease stage 3, anxiety and chronic reproducible anterior chest wall and sternal pain who presented for elective cholecystectomy due to abnormal HIDA scan. Medicine team was consulted due to postoperative chest pain. Patient had EKG performed postoperatively which demonstrated sinus rhythm with left bundle branch block that was unchanged from prior EKG, however, the patient had new T- wave inversion in leads I, II, aVF, aVL, V5 and V6. Patient had troponin and CK-MB panel performed which was negative and electrolytes are within normal limits. Dr. Wheeler contacted medicine team at the request of Anesthesiology. When arrived to bedside at PACU patient was drowsy and disoriented due to anesthetic. She was complaining of right upper quadrant abdominal pain. She appeared quite anxious and exhibited heavy breathing. Patient vital signs were stable and maintaining oxygen saturation in high 90s on room air. PACU nurse d id report low blood pressure immediately out of OR with BP 81/45 but repeat was within normal limits with BP 112/48. Patient did at one point report chest pressure/tightness and with difficulty to breathe. She endorsed mild headache and blurry vision. She denied jaw, neck and upper extremity pain, nausea or diaphoresis. Recommended to General surgery that the patient be observed overnight. Meds Home Medications and Allergies Home Medications Medication Instructions Recorded Confirmed Type fluticasone propionate [Flonase 50 mcg INTRANASAL DAILY PRN 03/18/18 08/31/20 History Allergy Relief] omega-3 acid ethyl esters [Lovaza] 2 cap PO BID 03/18/18 08/31/20 History Probiotic Blend 1 - 3 cap PO DAILY 12/18/18 08/31/20 History ascorbic acid (vitamin C) 1 g PO DAILY 12/18/18 08/31/20 History aspirin 81 mg PO DAILY 12/18/18 08/31/20 History cholecalciferol (vitamin D3) 1,000 unit PO DAILY 12/18/18 08/31/20 History [Vitamin D3] sertraline 50 mg PO QPM 12/18/18 08/31/20 History estradiol See Rx Instructions VAG .COMPLEX 08/12/19 08/31/20 Rx #42.5 gram tramadol 50 mg tablet 50 mg PO Q8H PRN 04/11/20 08/31/20 History alpha lipoic acid 600 mg capsule 600 mg PO DAILY 08/04/20 08/31/20 History conjugated estrogens 0.3 mg tablet 0.3 mg PO DAILY 08/04/20 08/31/20 History metoprolol succinate 25 mg capsule 25 mg PO DAILY 08/04/20 08/31/20 History sprinkle, ext. release 24 hr docusate sodium 100 mg PO BID #20 cap 08/31/20 Rx metformin 500 mg PO BID 08/31/20 08/31/20 History ondansetron 4 mg PO Q8H PRN #20 tab 08/31/20 Rx oxycodone 5 mg PO Q6H PRN #20 tab 08/31/20 Rx Allergies Allergy/AdvReac Type Severity Reaction Status Date / Time shellfish derived Allergy Severe Anaphylaxis Verified 08/26/20 13:45 gabapentin Allergy Verified 08/26/20 13:45 Iodinated Contrast Media Allergy Verified 08/26/20 13:45 [Iodinated Contrast- Oral and IV Dye] prednisone AdvReac Severe severe Verified 08/26/20 13:45 hypoglycemia atorvastatin AdvReac Verified 08/26/20 13:45 Review of Systems Review of Systems Narrative: A 10 system comprehensive review of systems was conducted with the patient and found to be negative except as above in the History of Present Illness. Exam Vital Signs (past 8 hours): - 08/31/20 09:28 08/31/20 12:21 08/31/20 12:36 Temperature 98.7 F 97.8 F Pulse Rate 60 83 74 Respiratory Rate 16 16 20 Blood Pressure 141/64 H 81/45 L 112/48 L Pulse Oximetry 96 98 98 08/31/20 12:40 08/31/20 12:45 08/31/20 12:50 Temperature 97.2 F L 97.4 F L Pulse Rate 68 66 65 Respiratory Rate 17 19 13 Blood Pressure 114/48 L 109/50 L 111/47 L Pulse Oximetry 98 99 98 08/31/20 12:55 08/31/20 13:00 08/31/20 13:05 Temperature 98.6 F 98.4 F 98.2 F Pulse Rate 65 68 64 Respiratory Rate 15 14 19 Blood Pressure 118/45 L 116/43 L 98/45 L Pulse Oximetry 100 98 100 08/31/20 13:10 08/31/20 13:15 08/31/20 13:20 Temperature 98.4 F 98.2 F 98.4 F Pulse Rate 63 62 61 Respiratory Rate 16 49 H 17 Blood Pressure 98/45 L 107/35 L 116/44 L Pulse Oximetry 98 99 100 08/31/20 13:30 08/31/20 13:49 08/31/20 14:01 Temperature 98.1 F 97.9 F 98.1 F Pulse Rate 61 67 69 Respiratory Rate 15 14 19 Blood Pressure 110/70 107/35 L 116/60 Pulse Oximetry 98 99 99 08/31/20 14:10 Temperature 98.1 F Pulse Rate 66 Respiratory Rate 18 Blood Pressure 111/51 L Pulse Oximetry 100 Oxygen Delivery Method Room Air Oxygen Flow Rate 0 Narrative Exam Narrative: General: Older female sitting in bed and in no acute distress, slightly drowsy and disoriented due to anesthesia, anxious with heavy breathing. HEENT: Normocephalic, atraumatic. External ears without defect. Pupils equal, round, and reactive to light. Anicteric sclerae, moist conjunctivae, and no lid lag. Oropharynx free of erythema and cobble stoning with moist mucosa. Neck: Supple with full range of motion. No jugular venous distension. No lymphadenopathy or thyromegaly. Cardiovascular: Regular rhythm and rate without murmurs, rubs, or gallops appreciated. Pulmonary: Clear to auscultation bilaterally without crackles, wheezes, or rhonchi. Normal respiratory effort with no use of accessory muscles. Abdomen: Soft, hypoactive bowel sounds, tenderness to palpation right upper quadrant, nondistended. Extremities: No clubbing, cyanosis, or edema. Skin: Normal temperature, turgor, and texture; no rash, ulcers, or subcutaneous nodules appreciated. Neurological: Cranial nerves grossly intact. Psychiatric: Anxious with heavy breathing. Slightly drowsy and disoriented due to anesthesia. Objective Labs Result Diagrams: 08/31/20 12:48 Labs: Laboratory Results - last 24 hr 08/31/20 08/31/20 08/31/20 12:40 12:48 13:23 Sodium 135 L Potassium 4.4 Chloride 106 Carbon Dioxide 24 BUN 26 H Creatinine 1.20 H Estimated GFR 44.2 L BUN/Creatinine Ratio 21.7 Glucose 175 H Calcium 8.8 Magnesium 1.8 Total Creatine Kinase 36 CK-MB (CK-2) TNP CK-MB (CK-2) Rel Index TNP Troponin I < 0.012 Assessment & Plan Assessment & Plan narrative: Qiana Jackson is a 70-year-old female with a past medical history significant for stress-induced cardiomyopathy, left bundle branch block, NSTEMI status post left heart catheterization in 07/2019 which did not identify any obstructive coronary disease, hypertension, diabetes mellitus type 2, non-insulin using, chronic kidney disease stage 3, anxiety and chronic chest pain who presented for elective cholecystectomy due to abnormal HIDA scan. Medicine team was consulted due to postoperative chest pain. Assessment: Postoperative chest pain Plan: Patient reported chest pain immediately postoperatively. EKG demonstrated sinus rhythm with left bundle branch block unchanged from previous EKG other than T-wave inversions in leads I, II, aVF, aVL, V5 and V6. As patient continued to clear from anesthetic her pain seemed to be more upper right quadrant and likely due to laparoscopic cholecystectomy. Patient has longstanding history of reproducible anterior chest wall sternal pain and anxiety. Patient has had a total of 3 left heart catheterizations with her last in 07/2019 which did not demonstrate any obstructive coronary artery disease. Previous echocardiogram demonstrated a variant of stress-induced cardiomyopathy with LV normal size and mildly reduced function with EF 45% with anterior and anteroseptal hypokinesis with preservation of function inferior lateral segments. Postoperative labs did not indicate any myocardial injury with troponin < 0.012. Electrolytes within normal limits. Recommend trending serial troponin x3 and continued cardiac monitoring. May repeat EKG and give sublingual nitroglycerin if patient develops recurrent chest pain or pressure. Plan to contact Cardiology if patient develops significant ST changes overnight. Continue home beta-flavia with metoprolol succinate 25 mg daily and aspirin 81 mg daily. Continue postoperative and pain management per primary team. Thank you for this most interesting consult. We will continue to follow along with you.
[2020-08-31] MEDS: SERTRALINE 50 MG TABLET PO (19:10)
[2020-08-31 19:29] LABS: Creatine Kinase 125 U/L (30-135)
[2020-08-31 19:45] LABS: CKMB % Relative Index 1.3 % (1.5-5.0); Creatine Kinase MB 1.62 ng/mL (<2.37)
[2020-08-31] MEDS: HEPARIN 5,000 UNIT/ML VIAL 5000 UNIT SUBCUT (21:08)
[2020-08-31] MEDS: METFORMIN HCL 500 MG TABLET PO (21:09)
--- NOTE | 2020-08-31 21:36 | PC.NURSE ---
Pt resting @ intervals, Lungs clear, SpO2 96% RA Denies any chest discomfort all shift. States abdominal surgery discomfort at 7 Med x 1 for discomfort w/good relief. IVF NS @ 50cc/hr into RFA via pump w/o incidence Four lap sites across abdomen intact, Faint BT noted. Stable post op course. Call light w/in reach, bed alarm on for pt safety. Continue w/plan of care.
[2020-09-01 00:33] VITALS: BP 108/70; PULSE 81; RESP 18; TEMP 37.5; O2SAT 95
[2020-09-01] MEDS: OXYCODONE IR 5 MG TABLET PO ×3 (01:11→14:57)
[2020-09-01 06:40] VITALS: BP 145/72; PULSE 68; RESP 18; TEMP 37; O2SAT 97
[2020-09-01 07:51] VITALS: BP 136/66; PULSE 68; RESP 16; TEMP 36.7; O2SAT 95
[2020-09-01] MEDS: ASPIRIN EC 81 MG TABLET PO (08:26)
[2020-09-01] MEDS: CHOLECALCIFEROL (VITAMIN D3) 1,000 UNIT TABLET 1000 UNIT PO (08:26)
[2020-09-01] MEDS: METOPROLOL ER 25 MG TABLET PO (08:27)
[2020-09-01] MEDS: DOCUSATE 100 MG CAPSULE PO (08:27)
[2020-09-01] MEDS: HEPARIN 5,000 UNIT/ML VIAL 5000 UNIT SUBCUT (08:27)
[2020-09-01] MEDS: METFORMIN HCL 500 MG TABLET PO (08:27)
[2020-09-01 10:23] LABS: Creatine Kinase 227 U/L (30-135)
[2020-09-01 10:25] LABS: Alanine Aminotransferase 17 IU/L (<35); Albumin 3.7 g/dL (3.5-5.0); Albumin Globulin Ratio 1.3 (1.0-2.8); Alkaline Phosphatase 65 U/L (38-126); Aspartate Aminotransferase 39 IU/L (14-36); BUN Creatinine Ratio 13.8 (6-22); Bilirubin Total 0.4 mg/dL (0.2-1.3); Blood Urea Nitrogen 18 mg/dL (7-17); Calcium 8.8 mg/dL (8.4-10.2); Carbon Dioxide 26 mmol/L (22-32); Chloride 103 mmol/L (98-107); Estimated Glomerular Filt Rate 40.3 mL/min (>60); Globulin 2.8 g/dL (1.7-4.1); Glucose 160 mg/dL (80-110); HEMOLYSIS < 15 (0-50); Magnesium 1.8 mg/dL (1.6-2.3); Potassium 4.3 mmol/L (3.4-5.1); Sodium 135 mmol/L (137-145); Total Protein 6.5 g/dL (6.3-8.2)
[2020-09-01 10:35] LABS: Troponin I 0.118 ng/mL (0.01-0.034)
[2020-09-01 10:39] LABS: CKMB % Relative Index 1.2 % (1.5-5.0); Creatine Kinase MB 2.62 ng/mL (<2.37)
--- NOTE | 2020-09-01 10:54 | DI.ECHO.S_ITS ---
[facility]---------+ [facility] +---------+ : : [address] : : [place], [place] : : : : [id number] : : : : Phone: [phone]+ Echocardiogram Report + + :Name: YUKI MARTEL Study Date: 09/01/2020 Height: 62 in : :[facility] Weight: 119 lb : : Gender: Female BSA: 1.5 m2 : :: 1950 Age: 70 yrs BP: 137/58 mmHg: :Reason For Study: POST OP CHEST PAIN, ELEVATED TROPONINS, HX : :OF CARDIOMYOPATHIES : :Ordering Physician: : :BEA VARELA Performed By: Leti Ewing : :Referring: MARIANO MORENO : + + Interpretation Summary The left ventricular cavity is small. Left ventricular systolic function appears normal without focal wall motion abnormalities. The ejection fraction is estimated to be 60-65%. Compared to the prior exam, the left ventricular function is improved. Prior LV wall motion abnormalities are resolved. The right ventricle is normal in size and function. Procedure: The study quality was technically adequate. Comparison is made with the echocardiogram of 07/28/2019. A two-dimensional transthoracic echocardiogram with color flow and Doppler was performed in limited views only. Left Ventricle: The left ventricular cavity is small. There is normal left ventricular wall thickness. The estimated left ventricular end diastolic volume is 43 ml. Left ventricular systolic function appears normal without focal wall motion abnormalities. The ejection fraction is estimated to be 60- 65%. Compared to the prior exam, the left ventricular function is improved. Prior LV wall motion abnormalities are resolved. Right Ventricle: The right ventricle is normal in size and function. Atria: The left atrial size is normal. Right atrial size is normal. Pericardium/ Pleura There is no pericardial effusion. There is no pleural effusion. MMode/2D Measurements & Calculations LVIDd: 3.6 cm LA A2 area: 16.1 cm2 LVIDs: 2.5 cm LA A4 area: 15.4 cm2 FS: 31.1 % LA length (vol): 4.8 cm IVSd: 0.78 cm LA vol: 43.9 ml LVPWd: 0.77 cm LA vol index: 28.6 ml/m2 LV pascal. diameter/BSA (cm/m^2): 2.3 LV sys. diameter/BSA (cm/m^2): 1.6 RA long axis: 4.4 cm RVD1 (basal): 3.3 cm RA area: 13.1 cm2 TAPSE: 1.7 cm RA vol: 33.4 ml RA : 21.8 ml/m2 IVC diam: 1.7 cm Reading Physician:01:17 PM
--- NOTE | 2020-09-01 11:05 | CM.DANOTE ---
DCP: Case received, EMR reviewed and met with patient. Partner, Frederic Salazar, was also at bedside. Introduced self and role. Was able to obtain information from patient regarding her baseline activity status prior to surgery. DCP assessment completed with information currently available. Patient is a 70 year old female who admitted yesterday morning to the care of the surgical/hospitalist team. PCP: Dr. Sonja Teixeira. Payer: confirmed: Medicare/[facility]. Patient came to the hospital for a surgical procedure. She had a lap mannie yesterday, secondary to cholecystitis. Patient was consulted by hospitalist, Dr. Summers, secondary to chest pain, and some cardiac issues. Met with patient in her room. She is alert and oriented, she does have history of some anxiety. She is pleasant, resides with partner, Frederic. Patient is independent at baseline, does not use any DME supplies. She drives, but very little. P: DCP to continue to follow for any needs. She should be able to go home when she is medically stable. Amy Borges RN/[employer]
--- NOTE | 2020-09-01 12:21 | PM.PN.1 ---
Subjective Subjective Date Patient Seen: 09/01/20 Time Patient Seen: 12:21 Interval history: No acute events overnight. Patient was admitted for evaluation, trending troponins, and review of her case with the hospitalist and large engine assembler. She is eating well, denies nausea, denies vomiting, reports pain at her surgical port sites and in the right upper quadrant. Exam Vital Signs (past 8 hours): - 09/01/20 06:40 09/01/20 07:51 Temperature 98.6 F 98.0 F Pulse Rate 68 68 Respiratory Rate 18 16 Blood Pressure 145/72 H 136/66 Pulse Oximetry 97 95 Oxygen Delivery Method Room Air Oxygen Flow Rate 0 Narrative Exam Narrative: GENERAL: Alert, comfortable. Appears stated age. Answers questions promptly and appropriately. Vital signs noted. HENT: Normocephalic, atraumatic. Hearing intact. EYES: Conjunctiva pink, sclera white, no periorbital swelling. CARDIOVASCULAR: Regular rate. No pedal edema. RESPIRATORY: Non-tachypneic, breathing comfortably on room air. GASTROINTESTINAL: Abdomen soft and non-distended; TTP at port sites and in RUQ; incisions c/d/i without cellulitis GENITALURINARY: No flank tenderness. MUSCULOSKELETAL: Equal tone and mass bilaterally. SKIN: Warm, dry, soft, appropriate color for ethnicity. No other lesions, rashes, or wounds. NEURO: Alert and Oriented X 3. No gross sensory deficits, or cognitive issues. PSYCH: Appropriate affect and mood. Objective Labs Result Diagrams: 09/01/20 09:47 Labs: Laboratory Results - last 24 hr 08/31/20 08/31/20 08/31/20 12:40 12:48 13:23 Sodium 135 L Potassium 4.4 Chloride 106 Carbon Dioxide 24 BUN 26 H Creatinine 1.20 H Estimated GFR 44.2 L BUN/Creatinine Ratio 21.7 Glucose 175 H Calcium 8.8 Magnesium 1.8 Total Bilirubin AST ALT Alkaline Phosphatase Total Creatine Kinase 36 CK-MB (CK-2) TNP CK-MB (CK-2) Rel Index TNP Troponin I < 0.012 Total Protein Albumin Globulin Albumin/Globulin Ratio 08/31/20 09/01/20 09/01/20 19:10 09:47 09:47 Sodium 135 L Potassium 4.3 Chloride 103 Carbon Dioxide 26 BUN 18 H Creatinine 1.30 H Estimated GFR 40.3 L BUN/Creatinine Ratio 13.8 Glucose 160 H Calcium 8.8 Magnesium 1.8 Total Bilirubin 0.4 AST 39 H ALT 17 Alkaline Phosphatase 65 Total Creatine Kinase 125 227 H CK-MB (CK-2) 1.62 2.62 H D CK-MB (CK-2) Rel Index 1.3 L 1.2 L Troponin I 0.030 0.118 H Total Protein 6.5 Albumin 3.7 Globulin 2.8 Albumin/Globulin Ratio 1.3 Assessment & Plan Assessment and plan (1) S/P laparoscopic cholecystectomy: Status: Acute (2) Non-insulin treated type 2 diabetes mellitus: Status: Acute (3) HTN (hypertension): Status: Chronic (4) H/O cardiac catheterization: Status: Acute (5) History of cardiomyopathy: Status: Acute (6) History of IL (myocardial infarction): Status: Acute Assessment & Plan narrative: 70-year-old woman postop day 1 laparoscopic cholecystectomy, admitted to the hospital due to postoperative chest pain. She is being followed by the hospitalist, who is discussed her case with the large engine assembler section hand helper. The patient seems to be doing well from her gallbladder surgery, but her cardiac status remains in question. Plan: Ambulate as tolerated Regular diet as tolerated Pain medication as needed Antiemetic as needed Cardiac evaluation per hospitalist and large engine assembler Dispo pending clearance by hospitalist/large engine assembler for home COVID-19 COVID-19 status: Negative Result date/Date tested (Pos, Neg/Pending): 08/28/20 Time Spent With Patient Time with patient: 15-24 minutes Quality VTE Deep Vein Thrombosis/Pulmonary Embolism Present on Admission: No
[2020-09-01 13:30] VITALS: BP 140/55; PULSE 68; RESP 16; TEMP 36.9; O2SAT 97
--- NOTE | 2020-09-01 14:39 | P.PN_ITS ---
Subjective Subjective Date Patient Seen: 09/01/20 Interval history: Qiana Jackson is a 70-year-old female with a past medical history significant for stress-induced cardiomyopathy, left bundle branch block, NSTEMI status post left heart catheterization in 07/2019 which did not identify any obstructive coronary disease, hypertension, diabetes mellitus type 2, non-insulin using, chronic ki dney disease stage 3, anxiety and chronic reproducible anterior chest wall and sternal pain who presented for elective cholecystectomy due to abnormal HIDA scan. Medicine team was consulted due to postoperative chest pain. The patient is resting in bed comfortably. She denies chest pain. She reports she never truly had chest pain and that it was actually shortness of breath that was her concern postoperatively. However, I informed the patient that she did report chest tightness to myself and chest pain to the anesthesiologist which was likely more right upper quadrant abdominal pain due to the cholecystectomy. She continues to have right upper quadrant pain which is well controlled with pain medications. Her troponin elevated overnight and a limited echocardiogram was performed today which did not demonstrate any wall motion abnormalities and resolution of her previous Takusubo she had last year. She previously had hyperdynamic LVOT which was also not present on echocardiogram today. She did have some postoperative hypotension which may have caused her to have temporary LVOT and may be the cause of her troponin elevation. She currently denies headache, shortness of breath, chest pain, nausea, vomiting, fever, chills, dysuria, diarrhea or constipation. She is voiding without difficulty. She has not yet had She is up ambulating with assistance. Exam Vital Signs (past 8 hours): - 09/01/20 06:40 09/01/20 07:51 09/01/20 13:30 Temperature 98.6 F 98.0 F 98.4 F Pulse Rate 68 68 68 Respiratory Rate 18 16 16 Blood Pressure 145/72 H 136/66 140/55 L Pulse Oximetry 97 95 97 Oxygen Delivery Method Room Air Oxygen Flow Rate 0 Narrative Exam Narrative: General: Older female sitting in bed and in no acute distress, well-developed, appropriately interactive. HEENT: Normocephalic, atraumatic. External ears without defect. Pupils equal, round, and reactive to light. Anicteric sclerae, moist conjunctivae, and no lid lag. Oropharynx free of erythema and cobble stoning with moist mucosa. Neck: Supple with full range of motion. No jugular venous distension. No lymphadenopathy or thyromegaly. Cardiovascular: Regular rhythm and rate without murmurs, rubs, or gallops appre ciated. Pulmonary: Clear to auscultation bilaterally without crackles, wheezes, or rhonchi. Normal respiratory effort with no use of accessory muscles. Abdomen: Soft, bowel sounds present, tenderness to palpation of right upper quadrant, nondistended. Surgical sites healing well. Extremities: No clubbing, cyanosis, or edema. Skin: Normal temperature, turgor, and texture; no rash, ulcers, or subcutaneous nodules appreciated. Neurological: Cranial nerves grossly intact. Psychiatric: Normal mood and affect. Alert oriented x3. Objective Labs Result Diagrams: 09/01/20 09:47 Labs: Laboratory Results - last 24 hr 08/31/20 09/01/20 09/01/20 19:10 09:47 09:47 Sodium 135 L Potassium 4.3 Chloride 103 Carbon Dioxide 26 BUN 18 H Creatinine 1.30 H Estimated GFR 40.3 L BUN/Creatinine Ratio 13.8 Glucose 160 H Calcium 8.8 Magnesium 1.8 Total Bilirubin 0.4 AST 39 H ALT 17 Alkaline Phosphatase 65 Total Creatine Kinase 125 227 H CK-MB (CK-2) 1.62 2.62 H D CK-MB (CK-2) Rel Index 1.3 L 1.2 L Troponin I 0.030 0.118 H Total Protein 6.5 Albumin 3.7 Globulin 2.8 Albumin/Globulin Ratio 1.3 Assessment & Plan Assessment & Plan narrative: Qiana Jackson is a 70-year-old female with a past medical history significant for stress-induced cardiomyopathy, left bundle branch block, NSTEMI status post left heart catheterization in 07/2019 which did not identify any obstructive coronary disease, hypertension, diabetes mellitus type 2, non-insulin using, chronic kidney disease stage 3, anxiety and chronic chest pain who presented for elective cholecystectomy due to abnormal HIDA scan. Medicine team was consulted due to postoperative chest pain. Assessment: Postoperative chest pain and elevated troponin Plan: Patient reported chest pain immediately postoperatively. EKG demonstrated sinus rhythm with left bundle branch block unchanged from previous EKG other than T-wave inversions in leads I, II, aVF, aVL, V5 and V6. As the patient continued to clear from anesthetic her pain localized to right upper quadrant due to laparoscopic cholecystectomy. Patient also has a longstanding history of reproducible anterior chest wall sternal pain and anxiety. Patient has had a total of 3 left heart catheterizations with her last in 07/2019 which did not demonstrate any obstructive coronary artery disease. Previous echocardiogram 07/28/19 demonstrated a variant of stress-induced cardiomyopathy with LV normal size and mildly reduced function with EF 45% with anterior and anteroseptal hypokinesis with preservation of function inferior lateral segments. Repeat limited echocardiogram today demonstrated resolution of Takusubo with EF 60-65% and no wall motion abnormalities. She also previously had hyperdynamic LVOT which resolved on 07/30/19 limited echocardiogram and was not present on repeat limited echocardiogram today. Patient did have postoperative hypotension which may have caused a temporary hyperdynamic LVOT which could cause a troponin leak, as well as, demand ischemia. Other laboratory evaluation has been within normal limits including electrolytes. Discussed case with on-call cereal popper, Dr. Schofield, who agrees that patient does not have any signs or symptoms of ACS and does not believe that her postoperative chest pain and troponin leak are due to coronary artery obstruction. Continue home beta-flavia with metoprolol succinate 25 mg daily and aspirin 81 mg daily. Continue postoperative and pain management per primary team. Thank you for this most interesting consult. Medicine team will sign off and the patient may be discharged when appropriate per primary team. Quality VTE Deep Vein Thrombosis/Pulmonary Embolism Present on Admission: No
[2020-09-01] MEDS: ACETAMINOPHEN 325 MG TABLET 650 MG PO (14:57)
--- NOTE | 2020-09-01 16:04 | PC.NURSE ---
Discharge order confirmed with Dr. Summers that patient cleared medically to discharge to home. Patient denies chest pain today, post operative pain reported in abdomen mostly on right side per patient. Patient states by afternoon and taking a nap she was feeling better and wanted to get home to sleep in her own bed tonight. Abdomen incisions with dermabond remain intact. Patient tolerating po's, voiding without difficulty, and ambulating in room with walker. Her reports they have a walker for her and he will be helping at home. Discharge instructions and home care handouts reviewed with patient and her , they have no further questions or concerns at this time. Patient states she prefers to call Dr. Ayala office to schedule/confirm follow up appointment. Patient escorted out via wheelchair with all her belongings to home with her .
== END 2020-09-01 15:15 | disposition home or self-care (01) ==
LOC: OR 10:51 → AC 09-01 12:19
PROVIDERS: Anesthesiology; Internal Medicine; Admitting Provider Surgery; PCP Internal Medicine; Referring Provider Internal Medicine; Visit Provider Surgery
PROC: 0FT44ZZ Resection of Gallbladder, Percutaneous Endoscopic Approach (ICD-10-PCS; CPT 47562; principal; 2020-08-31 10:15)
DX: K80.10 Calculus of gallbladder with chronic cholecystitis without obstruction (principal); E11.9 Type 2 diabetes mellitus without complications; I25.2 Old myocardial infarction; L98.9 Disorder of the skin and subcutaneous tissue, unspecified; Z79.4 Long term (current) use of insulin; N18.30 Chronic kidney disease, stage 3 unspecified; I12.9 Hypertensive chronic kidney disease with stage 1 through stage 4 chronic kidney disease, or unspecified chronic kidney disease; R77.8 Other specified abnormalities of plasma proteins; R07.89 Other chest pain
CPT/HCPCS: 47562; 36415; 80048; 80053; 82550; 82553; 83735; 84484; 93005; 93010; 93307; G0378; J0330; J0360; J1644; J2405; J2543; J2704; J3010

== ENCOUNTER → 2020-10-12 13:43 | Outpatient (CLI) | payer MEDICARE, OTHER, SELFPAY ==
[2020-08-31 15:22] VITALS: BMI 21.5
--- NOTE | 2020-10-12 | DI.RAD.S_ITS ---
PROCEDURE: XR FOOT RT MIN 3V INDICATIONS: Unspecified injury of right foot, initial encounter TECHNIQUE: 3 views of the foot were acquired. COMPARISON: None. FINDINGS: Bones: No fractures or dislocations. No suspicious bony lesions. Soft tissues: No tibiotalar joint effusion. Achilles tendon appears normal. IMPRESSION: No acute radiographic findings. If pain persists, followup imaging in 5-7 days is recommended to exclude occult fracture. Dictated by: Rowan Townsend M.D. on 10/12/2020 at 15:57 Approved by: Rowan Townsend M.D. on 10/12/2020 at 15:59
== END ==
PROVIDERS: PCP Internal Medicine; Referring Provider Internal Medicine; Visit Provider Internal Medicine
DX: S99.921A Unspecified injury of right foot, initial encounter (principal); X58.XXXA Exposure to other specified factors, initial encounter
CPT/HCPCS: 73630

== ENCOUNTER 2020-11-22 10:30 | Outpatient (RCR) | payer MEDICARE, OTHER, SELFPAY ==
[2020-08-31 15:22] VITALS: BMI 21.5
--- NOTE | 2020-09-23 16:07 | PT.OPPOC ---
Physical, Occupational & Speech Therapy At [facility] Current Diagnoses Cervicalgia (09/23/20) Visit Care Team Role Provider Type Sonja Teixeira MD Primary Care Provider Non-Staff Specialty: Internal Medicine Address: [address], [address] Email: [email or web address] Fabián Wing MD Attending Provider Non-Staff Referring Provider Specialty: Neurology Address: [address] [place], [address] Email: Plan Of Care PT-OP-T Assessment and Plan Start: 09/23/20 12:24 Freq: Status: Active Protocol: Document 09/23/20 12:17 MB (Rec: 09/23/20 16:06 MB [id number]) Physical Therapy Assessment Rehab Potential Rehabilitation Potential Fair Evaluation Complexity Number of Personal Factors/Comorbidities 3 or More Number of Body Systems Impaired 3 Clinical Presentation at Evaluation Evolving Impairments Impairments Activity Tolerance,Balance, Functional Activities, Functional Mobility,Pain, Posture,ROM,Soft Tissue Mobility,Strength Other Impairments Personal factors include poor memory, recall from last treatment and follow-through with previous recs, pt tends to ask for manual treatment, even on eval date and unsure of self-care carryover at home , multiple medical co- morbidities including DM, kidney disease, history of visceral issues and surgeries. Goals 4 Marketing Account Executive Goal (LTG) Pt will perform WNLs on a standardized balance test to decrease fall risk by 2020. LTG Duration 8 weeks 3 Intermediate Goal (LTG) Pt will present with improved cervical AROM to at least 25 deg flexion and extension, B SB 15 deg and B rotation 40 deg to improve neck rotation with driving and scanning while walking by 11/23/2020. LTG Duration 8 weeks 2 Intermediate Goal (LTG) Pt will present with improved NDI score to 20% to reflect decreased pain with functional activities by 11/23/2020. LTG Duration 8 weeks 1 Marketing Account Executive Goal (LTG) Pt will perform progressive HEP with I including postural, flexibility, strengthening and relaxation exercises to decrease pain and improve mobility by 11/23/2020. LTG Duration 8 weeks Assessment Summary Assessment Pt is a 70 y/o female returning to therapy for neck pain after having gallbladder surgery. She states that she had some complications with surgery. This date, she states that she has not had anymore headaches and reports that she started Botox injections the day before her last physical therapy initial assessment. She did not communicate this with this therapist last PT course and complained of headaches. Pt did have a lot of trouble communicating her PMH with PT at that time. She presents with ongoing cognitive and memory challenges and does not recall education provided by this therapist last treatment course (which was several weeks ago). 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 PT provides education on plan for assessment today as pt mentions several times that she wants that treatment you did last time. PT educates pt on PT role for education for self-care, posture and exercises in conjunction with manual work. Unsure of pt's understanding about this. Educated pt on importance of making progress towards functional goals for outpatient skilled PT. Also unsure of pt's understanding about this. She will benefit from PT to improve range, strength, balance and pain. Barriers include chronicity of symptoms, many medical comorbidities and cognitive challenges. Physical Therapy Plan Frequency and Duration Frequency of Treatment 2x/Week Duration of Treatment 8 weeks Plan of Care Start Date 09/23/20 Plan of Care End Date 11/23/20 Therapeutic Interventions Therapeutic Interventions Balance Training,Canalithic Repositioning,Home Exercise Program,Joint Mobilizations, Manual Therapy,Neuromuscular Re-education,Patient/Caregiver Education,Self-Care/Home Management,Sensory Integration ,Soft Tissue Mobilization, Taping,Therapeutic Activities, Therapeutic Exercises Modalities Cold Pack/Ice Massage,Electric Stimulation,Hot Packs, Ultrasound Next Visit Focus/Plan Next Note Type Treatment Note Next Visit Plan Counterstrain and then review pt's current HEP and revise as needed Plan of Care Dates Plan of Care Start Date 09/23/20 Plan of Care End Date 11/23/20 Electronically Signed by: Janet Shah, PT 09/26/20 [id number] Please Sign and Return: I have reviewed this Plan of Care and certify that the skilled therapy services above are required to meet the patient?s needs. Physician Signature Date Printed Name and Credentials Clinical Instructor Signature Printed Name and Credentials
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
--- NOTE | 2020-09-23 16:07 | PT.OPPOC ---
Physical, Occupational & Speech Therapy At [facility] Current Diagnoses Cervicalgia (09/23/20) Visit Care Team Role Provider Type Sonja Teixeira MD Primary Care Provider Non-Staff Specialty: Internal Medicine Address: [address], [address] Email: [email or web address] Fabián Wing MD Attending Provider Non-Staff Referring Provider Specialty: Neurology Address: [address] [place], [address] Email: Plan Of Care PT-OP-T Assessment and Plan Start: 09/23/20 12:24 Freq: Status: Active Protocol: Document 09/23/20 12:17 MB (Rec: 09/23/20 16:06 MB [id number]) Physical Therapy Assessment Rehab Potential Rehabilitation Potential Fair Evaluation Complexity Number of Personal Factors/Comorbidities 3 or More Number of Body Systems Impaired 3 Clinical Presentation at Evaluation Evolving Impairments Impairments Activity Tolerance,Balance, Functional Activities, Functional Mobility,Pain, Posture,ROM,Soft Tissue Mobility,Strength Other Impairments Personal factors include poor memory, recall from last treatment and follow-through with previous recs, pt tends to ask for manual treatment, even on eval date and unsure of self-care carryover at home , multiple medical co- morbidities including DM, kidney disease, history of visceral issues and surgeries. Goals 4 Residential Goal (LTG) Pt will perform WNLs on a standardized balance test to decrease fall risk by 2020. LTG Duration 8 weeks 3 Residential Goal (LTG) Pt will present with improved cervical AROM to at least 25 deg flexion and extension, B SB 15 deg and B rotation 40 deg to improve neck rotation with driving and scanning while walking by 11/23/2020. LTG Duration 8 weeks 2 Residential Goal (LTG) Pt will present with improved NDI score to 20% to reflect decreased pain with functional activities by 11/23/2020. LTG Duration 8 weeks 1 Enrichment Teacher Goal (LTG) Pt will perform progressive HEP with I including postural, flexibility, strengthening and relaxation exercises to decrease pain and improve mobility by 11/23/2020. LTG Duration 8 weeks Physical Therapy Plan Frequency and Duration Frequency of Treatment 2x/Week Duration of Treatment 8 weeks Plan of Care Start Date 09/23/20 Plan of Care End Date 11/23/20 Therapeutic Interventions Therapeutic Interventions Balance Training,Canalithic Repositioning,Home Exercise Program,Joint Mobilizations, Manual Therapy,Neuromuscular Re-education,Patient/Caregiver Education,Self-Care/Home Management,Sensory Integration ,Soft Tissue Mobilization, Taping,Therapeutic Activities, Therapeutic Exercises Modalities Cold Pack/Ice Massage,Electric Stimulation,Hot Packs, Ultrasound Next Visit Focus/Plan Next Note Type Treatment Note Next Visit Plan Counterstrain and then review pt's current HEP and revise as needed Plan of Care Dates Plan of Care Start Date 09/23/20 Plan of Care End Date 11/23/20 Electronically Signed by: Janet Shah, PT 09/23/20 [id number] Please Sign and Return: I have reviewed this Plan of Care and certify that the skilled therapy services above are required to meet the patient?s needs. Physician Signature Date Printed Name and Credentials Clinical Instructor Signature Printed Name and Credentials
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
--- NOTE | 2020-10-10 09:58 | PT-OP ANOTE ---
PT sends Dr. Wing PT treatment note from last week when PT discussed concerns about pt's cognition with pt and Frederic. This is a barrier to PT. PT calls Dr. Wing's office this morning and he is not available to speak with. PT leaves message with medical receptionist medical assistant and he may call PT back.
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
--- NOTE | 2020-10-18 16:02 | PT.OPPOC ---
Physical, Occupational & Speech Therapy At [facility] Current Diagnoses Cervicalgia (10/18/20) Visit Care Team Role Provider Type Sonja Teixeira MD Primary Care Provider Non-Staff Specialty: Internal Medicine Address: [address] [place] [address], [id number] Email: [email or web address] Fabián Wing MD Attending Provider Non-Staff Referring Provider Specialty: Neurology Address: [address] [place], [address] Email: Plan Of Care PT-OP-T Assessment and Plan Start: 09/23/20 12:24 Freq: Status: Active Protocol: Document 10/18/20 13:48 MB (Rec: 10/18/20 14:22 MB [id number]) Physical Therapy Assessment Rehab Potential Rehabilitation Potential Fair Evaluation Complexity Number of Personal Factors/Comorbidities 3 or More Number of Body Systems Impaired 3 Clinical Presentation at Evaluation Evolving Impairments Impairments Activity Tolerance,Balance, Functional Activities, Functional Mobility,Pain, Posture,ROM,Soft Tissue Mobility,Strength Other Impairments Personal factors include poor memory, recall from last treatment and follow-through with previous recs, pt tends to ask for manual treatment, even on eval date and unsure of self-care carryover at home , multiple medical co- morbidities including DM, kidney disease, history of visceral issues and surgeries. Goals 4 Retirement Goal (LTG) Pt will perform WNLs on a standardized balance test to decrease fall risk by 2020. LTG Duration 8 weeks 3 Retirement Goal (LTG) Pt will present with improved cervical AROM to at least 25 deg flexion and extension, B SB 15 deg and B rotation 40 deg to improve neck rotation with driving and scanning while walking by 11/23/2020. LTG Duration 8 weeks 2 Retirement Goal (LTG) Pt will present with improved NDI score to 20% to reflect decreased pain with functional activities by 11/23/2020. LTG Duration 8 weeks 1 Retirement Goal (LTG) Pt will perform progressive HEP with I including postural, flexibility, strengthening and relaxation exercises to decrease pain and improve mobility by 11/23/2020. LTG Duration 8 weeks Assessment Summary Assessment Pt con't to report concern that benefits from Counterstrain and suboccipital release do not stay. Ed pt in chronicity of symptoms, many contributions to them and need for ongoing self-care and manual work after PT discharges as a result of these issues. Pt and Frederic seem interested in trying the Saunder's cervical traction unit and so will add to plan and send note to Dr. Wing today. Pt responds well to towel roll gentle manual traction today and so it is worth trying unit for more daily management of her pain in the future. Pt to bring in foam roller in future treatments, possibly therapy ball to review any exercises she wishes to con't with on these from previous PT courses . Frederic to bring in photos of pt 's posture on the therapy ball and side lying in bed for PT to assess d/t pt's complaints of pain with getting up in the morning. Pt is confused about treatments this week, thinks that today is second appointment of the week. She has decreased recall that she has asked PT about why the treatments don't stay/stick several times with PT providing education and encouragement each time. Pt has ongoing trouble remembering if Counterstrain is helpful and for how long. Frederic reports that it has been helpful. Pt's cognition is an ongoing barrier to carryover and improvement. Physical Therapy Plan Frequency and Duration Frequency of Treatment 2x/Week Duration of Treatment 8 weeks Plan of Care Start Date 10/18/20 Plan of Care End Date 12/02/20 Therapeutic Interventions Therapeutic Interventions Balance Training,Canalithic Repositioning,Home Exercise Program,Joint Mobilizations, Manual Therapy,Neuromuscular Re-education,Patient/Caregiver Education,Self-Care/Home Management,Sensory Integration ,Soft Tissue Mobilization, Taping,Therapeutic Activities, Therapeutic Exercises Modalities Cold Pack/Ice Massage,Electric Stimulation,Hot Packs, Traction- Mechanical, Ultrasound Next Visit Focus/Plan Next Note Type Treatment Note Next Visit Plan Consider trying Canales cervical traction unit. Consider gentle diaphragm work in future. Consider breathing and other relaxation exercises, review all exercises with Frederic nearby. Plan of Care Dates Plan of Care Start Date 10/18/20 Plan of Care End Date 12/02/20 Electronically Signed by: Janet Shah, PT 10/18/20 [id number] Please Sign and Return: I have reviewed this Plan of Care and certify that the skilled therapy services above are required to meet the patient?s needs. Physician Signature Date Printed Name and Credentials Clinical Instructor Signature Printed Name and Credentials
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
--- NOTE | 2020-10-24 08:58 | PT.OPPOC ---
Physical, Occupational & Speech Therapy At [facility] Current Diagnoses Cervicalgia (10/24/20) Visit Care Team Role Provider Type Sonja Teixeira MD Primary Care Provider Non-Staff Specialty: Internal Medicine Address: [address], [address] Email: [email or web address] Fabi[facility] Wing MD Attending Provider Non-Staff Referring Provider Specialty: Neurology Address: [address] [place], [address] Email: Plan Of Care PT-OP-T Assessment and Plan Start: 09/23/20 12:24 Freq: Status: Active Protocol: Document 10/24/20 07:35 MB (Rec: 10/24/20 08:12 MB [id number]) Physical Therapy Assessment Rehab Potential Rehabilitation Potential Fair Evaluation Complexity Number of Personal Factors/Comorbidities 3 or More Number of Body Systems Impaired 3 Clinical Presentation at Evaluation Evolving Impairments Impairments Activity Tolerance,Balance, Functional Activities, Functional Mobility,Pain, Posture,ROM,Soft Tissue Mobility,Strength Other Impairments Personal factors include poor memory, recall from last treatment and follow-through with previous recs, pt tends to ask for manual treatment, even on eval date and unsure of self-care carryover at home , multiple medical co- morbidities including DM, kidney disease, history of visceral issues and surgeries. Goals 5 Mcc Goal (LTG) Pt will gait train at least 1400 feet in 6 minutes to improve community ambulation and ability to return to walking for exercise by 2020. LTG Duration 5 weeks 4 Mcc Goal (LTG) Pt will perform WNLs on FGA to decrease fall risk by 2020. 10/24/2020: Romberg EO and EC 30 sec, pt has trouble with head turns as far as slowing down with gait, no imbalance LTG Duration 5 weeks 3 Mcc Goal (LTG) Pt will present with improved cervical AROM to at least 25 deg flexion and extension, B SB 15 deg and B rotation 40 deg to improve neck rotation with driving and scanning while walking by 12/02/2020. 10/24/2020: AROM cervical extension 10 deg, flexion to 15 deg, B SB 15 deg with rotation component, rotation right 30 deg and left 30 deg LTG Duration 5 weeks 2 Net Software Developer Goal (LTG) Pt will present with improved NDI score to 20% to reflect decreased pain with functional activities by 12/02/2020. 10/24/2020: NDI reflects 15% improvement with score reflecting 28% impairment LTG Duration 5 weeks 1 Net Software Developer Goal (LTG) Pt will perform progressive HEP with I including postural, flexibility, strengthening and relaxation exercises to decrease pain and improve mobility by 12/02/2020. 10/24/2020: Pt will need to review exercises with PT and Frederic in future treatments. LTG Duration 5 weeks Progress Towards Goals Progress Towards Goals Progressing Toward Goals Assessment Summary Assessment Orthostatic assessment with BP and HR left UE: supine 160/74 , 68; standing 145/71, 74; standing 1' 145/72, 75. Pt reports fatigue at home and has not been able to get back to walking. Pt gait trains 1240 feet in 6 minutes today and reports fatigue after 4' and 5' of gait. She ate this morning, has not had coffee and states that she feels more fatigued in the morning. BP after gait is 163/74, 76. Her BP is fluctuating. Pt has progressed towards NDI and cervical ROM goals since starting PT. Will add 6MWT goal and FGA goal to incorporate balance with gait and assessment of vitals and symptoms with gait. Will review her previous HEP given by other PTs in future treatments and revise and add any as needed. Barriers to PT include cognition and chronicity of symptoms in setting of cervical stenosis. Pt's significant other, Frederic, is now attending visits and this is encouraging for pt and helps faciliate communication and carryover of PT education . Physical Therapy Plan Frequency and Duration Frequency of Treatment 2x/Week Duration of Treatment 5 weeks Plan of Care Start Date 10/24/20 Plan of Care End Date 12/02/20 Therapeutic Interventions Therapeutic Interventions Balance Training,Canalithic Repositioning,Home Exercise Program,Joint Mobilizations, Manual Therapy,Neuromuscular Re-education,Patient/Caregiver Education,Self-Care/Home Management,Sensory Integration ,Soft Tissue Mobilization, Taping,Therapeutic Activities, Therapeutic Exercises Modalities Cold Pack/Ice Massage,Electric Stimulation,Hot Packs, Traction- Mechanical, Ultrasound Next Visit Focus/Plan Next Note Type Treatment Note Next Visit Plan Consider breathing exercises, review all exercises with Frederic phan. Plan of Care Dates Plan of Care Start Date 10/24/20 Plan of Care End Date 12/02/20 Electronically Signed by: Janet Shah, PT 10/24/20 0858 Please Sign and Return: I have reviewed this Plan of Care and certify that the skilled therapy services above are required to meet the patient?s needs. Physician Signature Date Printed Name and Credentials Clinical Instructor Signature Printed Name and Credentials
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
== END 2020-11-23 08:10 | disposition home or self-care (01) ==
LOC: PHYS 10:30
PROVIDERS: PCP Internal Medicine; Referring Provider Psychiatry & Neurology Neurology; Visit Provider Psychiatry & Neurology Neurology
DX: M54.2 Cervicalgia (principal)
CPT/HCPCS: 97110; 97112; 97116; 97140; 97161; 97535

== ENCOUNTER → 2020-12-16 07:56 | Outpatient (CLI) | payer MEDICARE, OTHER, SELFPAY ==
[2020-08-31 15:22] VITALS: BMI 21.5
--- NOTE | 2020-12-16 | DI.US.S_ITS ---
PROCEDURE: US CAROTID DOPPLER BI INDICATIONS: bruits TECHNIQUE: Color and pulse Doppler interrogation was performed of both carotid systems, with image documentation and velocity measurements. COMPARISON: [facility], MR, MR ANGIO NECK WO [facility], 03/15/2020, 16:40. [facility], CT, CT SOFT TISSUE NECK WO CON, 05/03/2020, 8:42. FINDINGS: Stenosis calculations are based on SRU (Society of Radiologists in Ultrasound) criteria. The flow velocities and the arterial waveforms are normal within both carotid arterial systems. Atherosclerotic plaque is seen, left worse than right. The estimated degree of internal carotid artery stenosis is less than 50%. Antegrade flow is confirmed within both vertebral arteries. IMPRESSION: No hemodynamically significant stenosis is seen. Dictated by: Ted Rain M.D. on 12/21/2020 at 10:12 Approved by: Ted Rain M.D. on 12/21/2020 at 10:13
--- NOTE | 2020-12-16 | DI.ECHO.S_ITS ---
[facility] +---------+ : : [address] : [place] : : : : [id number] : : : : Phone: [phone]+ Echocardiogram Report + + :Name: YUKI MARTEL Study Date: 12/16/2020 Height: 62 in : [id number] ReadingLocation: Weight: 122 lb : : Gender: Female BSA: 1.5 m2 : :: 1950 Age: 70 yrs BP: 161/68 mmHg: :Reason For Study: Takotsubo syndrome, Dyspnea : :Ordering Physician: NOMI, : :ALMA ROSA Iraheta Performed By: Amber Tamayo : :Referring: ALMA ROSA MOSHER : + + Interpretation Summary Normal sinus rhythm. Normal LV size, wall thickness, wall motion and LV systolic function. EF is 60-65%. Mild LA enlargement; otherwise normal chamber sizes. No significant valvular abnormalities. Compared to prior study 09/01/2020 no changes have occurred. Procedure: A two-dimensional transthoracic echocardiogram with color flow and Doppler was performed. The study quality was technically adequate. Comparison is made with the echocardiogram of 09/01/2020. The patient was in normal sinus rhythm during the exam. Left Ventricle: The left ventricular cavity is small. There is normal left ventricular wall thickness. There is mild proximal septal thickening noted. The ejection fraction is estimated to be 60-65%. Right Ventricle: The right ventricle is normal in size and function. Atria: The left atrium is mildly dilated. Right atrial size is normal. There is no Doppler evidence for an interatrial shunt. Mitral Valve: The mitral valve is normal in structure and function. There is mild mitral regurgitation. Aortic Valve: The aortic valve is trileaflet. The aortic valve opens well. There is mild aortic valve sclerosis. No aortic regurgitation is present. Tricuspid Valve: The tricuspid valve is normal in structure and function. There is mild tricuspid regurgitation. The right ventricular systolic pressure is estimated to be at least 23 mmHg based on an estimated right atrial pressure of 3 mm Hg. Pulmonic Valve: The pulmonic valve is not well seen, but is grossly normal. There is mild pulmonic regurgitation. Great Vessels: The aortic root is normal size. The ascending aorta is normal in size. The pulmonary artery is not well visualized, but is probably normal size. The IVC is of normal diameter and collapses greater than 50% with a sniff. This suggests a low right atrial pressure of 3 mm Hg. Pericardium/ Pleura There is no pericardial effusion. MMode/2D Measurements & Calculations LVIDd: 3.7 cm LVOT diam: 2.0 cm LVIDs: 2.6 cm Ao root diam: 2.6 cm FS: 30.6 % asc Aorta Diam: 3.4 cm IVSd: 0.57 cm LVPWd: 0.82 cm LV pascal. diameter/BSA (cm/m^2): 2.4 LV sys. diameter/BSA (cm/m^2): 1.7 LA A2 area: 23.5 cm2 RA long axis: 3.9 cm LA A4 area: 19.6 cm2 RA area: 9.2 cm2 LA length (vol): 5.6 cm RA vol: 18.5 ml LA vol: 70.2 ml RA : 11.9 ml/m2 LA vol index: 45.3 ml/m2 IVC diam: 1.4 cm RVD1 (basal): 3.2 cm TAPSE: 2.3 cm Doppler Measurements & Calculations Ao V2 max: 135.5 cm/sec LVOT Max Lokesh: 147.8 cm/sec Ao V2 mean: 95.7 cm/sec LV V1 max P.7 mmHg Ao max P.3 mmHg LV V1 VTI: 35.1 cm Ao mean P.0 mmHg JAYCOB(I,D): 3.5 cm2 Ao V2 VTI: 31.3 cm JAYCOB(V,D): 3.4 cm2 sev ratio: 1.1 JAYCOB indexed to BSA (cm^2/m^2): 2.3 MV E max lokesh: 113.3 cm/sec TR max lokesh: 223.1 cm/sec MV A max lokesh: 107.8 cm/sec TR max P.9 mmHg MV E/A: 1.1 PA V2 max: 71.8 cm/sec Med Peak E' Lokesh: 5.3 cm/sec PA V2 mean: 50.8 cm/sec E/E' med: 21.5 PA mean P.1 mmHg Lat Peak E' Lokesh: 7.3 cm/sec PA Accel Time: 0.14 sec E/E' lat: 15.6 E/e' average: 18.6 MV dec time: 0.24 sec SV(LVOT): 110.5 ml Electronically signed by: Prachi Mauricio M.D. on Reading Physician:12/17/2020 06:55 AM
== END ==
PROVIDERS: PCP Family Medicine; Referring Provider Internal Medicine; Visit Provider Internal Medicine
DX: I51.81 Takotsubo syndrome (principal); R06.00 Dyspnea, unspecified; R09.89 Other specified symptoms and signs involving the circulatory and respiratory systems
CPT/HCPCS: 93306; 93880

== ENCOUNTER 2021-03-30 15:37 | Emergency (ER) | payer MEDICARE, OTHER, SELFPAY ==
[2021-03-01 10:36] VITALS: BMI 21.5
[2021-03-30 15:42] VITALS: BP 150/72; PULSE 68; RESP 15; TEMP 36.7; O2SAT 98; BMI 23.3
--- NOTE | 2021-03-30 17:48 | DI.US.S_ITS ---
PROCEDURE: US ABDOMEN LIMITED INDICATIONS: RUQ pain TECHNIQUE: Real-time focused scanning was performed of the abdomen, with image documentation. COMPARISON: [facility], CT, CT ABDOMEN PELVIS W CON, 06/17/2020, 21:29. [facility], US, US ABDOMEN LIMITED, 08/12/2020, 10:13. FINDINGS: Remote cholecystectomy. Expected prominence of the biliary tree, post cholecystectomy, not significant changed from previous CT. Common hepatic duct measures 9 mm. Common bile duct measures 8 mm. Visualized portions the pancreas are unremarkable. Liver has a normal echotexture. IMPRESSION: Remote cholecystectomy. No acute findings. Dictated by: Torres Merritt M.D. on 03/30/2021 at 18:45 Approved by: Torres Merritt M.D. on 03/30/2021 at 18:47
--- NOTE | 2021-03-30 18:07 | ED_ITS ---
HPI - Abdominal Pain General Chief Complaint: Abdominal Pain Stated Complaint: sore throat, abd pain Time Seen by Provider: 03/30/21 18:04 Source: patient Mode of arrival: Ambulatory Limitations: no limitations History of Present Illness HPI narrative: 71F former smoker with history of dehydration fatigue and chronic abdominal pain as well as non insulin-dependent diabetes, giant cell arteritis, chronic pain syndrome and complicated bowel issues has an upcoming surgery at the [facility] to address bowel prolapse. She has been feeling ill for the past few days and complains of generalized fatigue, nasal congestion sore throat with difficulty swallowing. She has had no fever or chills. She has had a poor appetite for quite some time. She was seen and evaluated yesterday at an outside facility had a very thorough workup including labs which were unremarkable and a non contrasted CT of the abdomen and pelvis (due to an anaphylactic reaction to IV contrast). She had some periumbilical pain without any obvious provocation or palliation that became a problem only after the physical exam at the outside facility. She denies any change in bowel habits such as diarrhea or constipation. She denies any dysuria, frequency or urgency. She does state that her pain might get worse when she eats. MD complaint: abdominal pain Onset (ago): day(s) Pain Consistency: constant Location: periumbilical Severity: moderate Quality: cramping Radiation: none Relieving factors: nothing Exacerbating factors: eating Related Data Home Medications Medication Instructions Recorded Confirmed fluticasone propionate [Flonase 50 mcg INTRANASAL DAILY PRN 03/18/18 08/31/20 Allergy Relief] omega-3 acid ethyl esters [Lovaza] 2 cap PO BID 03/18/18 08/31/20 Probiotic Blend 1 - 3 cap PO DAILY 12/18/18 08/31/20 ascorbic acid (vitamin C) 1 g PO DAILY 12/18/18 08/31/20 aspirin 81 mg PO DAILY 12/18/18 08/31/20 cholecalciferol (vitamin D3) 1,000 unit PO DAILY 12/18/18 08/31/20 [Vitamin D3] sertraline 50 mg PO QPM 12/18/18 08/31/20 tramadol 50 mg tablet 50 mg PO Q8H PRN 04/11/20 08/31/20 alpha lipoic acid 600 mg capsule 600 mg PO DAILY 08/04/20 08/31/20 conjugated estrogens 0.3 mg tablet 0.3 mg PO DAILY 08/04/20 08/31/20 metoprolol succinate 25 mg capsule 25 mg PO DAILY 08/04/20 08/31/20 sprinkle, ext. release 24 hr metformin 500 mg PO BID 08/31/20 08/31/20 Previous Rx's Medication Instructions Recorded estradiol See Rx Instructions VAG .COMPLEX 08/12/19 #42.5 gram docusate sodium 100 mg PO BID #20 cap 08/31/20 ondansetron 4 mg PO Q8H PRN #20 tab 08/31/20 oxycodone 5 mg PO Q6H PRN #20 tab 08/31/20 Allergies Allergy/AdvReac Type Severity Reaction Status Date / Time shellfish derived Allergy Severe Anaphylaxis Verified 03/30/21 15:42 gabapentin Allergy Verified 03/30/21 15:42 Iodinated Contrast Media Allergy Verified 03/30/21 15:42 [Iodinated Contrast- Oral and IV Dye] prednisone AdvReac Severe severe Verified 03/30/21 15:42 hypoglycemia atorvastatin AdvReac Verified 03/30/21 15:42 Review of Systems Constitutional Constitutional: Denies chills, Reports fatigue, Denies fever(s), Denies frequent falls, Reports lethargy and Reports weakness Eyes Eyes: Denies change in vision, Denies eye discharge, Denies irritation and Denies loss of vision ENT Ears, Nose, Mouth, and Throat: Denies change in voice, Denies dizziness, Denies neck pain, Denies sore throat and Denies throat swelling Cardiovascular Cardiovascular: Denies chest pain, Denies irregular heart rhythm, Denies lightheadedness, Denies palpitations, Denies dyspnea, Denies dyspnea on exertion and Denies orthopnea Respiratory Respiratory: Denies cough, Denies dyspnea, Denies dyspnea on exertion and Denies wheezing Gastrointestinal Gastrointestinal: Reports abdominal pain, Denies change in bowel habits, Denies diarrhea, Denies nausea and Denies vomiting Musculoskeletal Musculoskeletal: Denies neck pain and Denies numbness Integumentary/Breasts Skin/Breast: Denies pruritus, Denies erythema, Denies rash and Denies wounds Neurologic Neurologic: Denies behavioral changes, Denies confusion, Denies dizziness, Denies frequent falls, Denies loss of vision, Denies numbness and Reports weakness Psychiatric Psychiatric: Denies anxiety, Denies behavioral changes, Denies confusion, Denies depression, Denies homicidal ideation and Denies suicidal ideation Endocrine Endocrine: Reports fatigue, Denies flushing and Denies palpitations Hematologic/Lymphatic Hematologic/Lymphatic: Denies easy bruising Allergic/Immunologic Allergic/Immunologic: Denies urticaria, Denies throat swelling and Denies wheezing Patient History Medical History (Updated 03/30/21 @ 21:20 by Rodri Ramirez DO) Abnormal biliary HIDA scan Atrophic vulvovaginitis Cervical stenosis of spinal canal Cervicogenic headache Chronic diarrhea CKD stage 3 secondary to diabetes Diabetes Diabetes GERD (gastroesophageal reflux disease) GERD with esophagitis Giant cell arteritis Giant cell arteritis History of rectocele Hypertension Hypertension Incarcerated hernia LBBB (left bundle branch block) Renal insufficiency Right upper quadrant pain Stress-induced cardiomyopathy Surgical History H/O cardiac catheterization H/O: hysterectomy History of bladder suspension procedure History of hernia repair S/P hernia repair Family History Father Heart disease Mother Heart disease Brother Heart disease Social History household members: significant other caregiver/support person: Yes (son) occupational status: previously employed Smoking Status: Former smoker alcohol intake: current Smoking Status: Former smoker alcohol intake frequency: holidays/special occasions only Substance Use Type: does not use and tranquilizers Exam Narrative Exam Narrative: GENERAL: [71] year old patient appears stated age. Well- nourished, well-developed patient, in mild distress. Anxious HEAD: Atraumatic. Normocephalic. EYES: Pupils equal round and reactive. Extraocular motions intact. No scleral icterus. No injection or drainage. ENT: Nose without bleeding, purulent drainage. Throat without erythema, tonsillar hypertrophy or exudate. Airway patent. NECK: Trachea midline. Non tender CARDIOVASCULAR: Regular rate and rhythm without murmurs, gallops, or rubs. RESPIRATORY: Clear to auscultation. Breath sounds equal bilaterally. No wheezes, rales, or rhonchi. GASTROINTESTINAL: Abdomen soft, mild areas of tenderness through out, nondistended. EXTREMITIES: No edema or joint tenderness. BACK: Nontender without deformity or crepitance. No flank tenderness. NEURO: AOx3. SKIN: No rash or erythema of visible areas Initial Vital Signs Initial Vital Signs: Vital Signs Temperature 98.1 F 03/30/21 15:42 Pulse Rate 68 03/30/21 15:42 Respiratory Rate 15 03/30/21 15:42 Blood Pressure 150/72 H 03/30/21 15:42 Pulse Oximetry 98 03/30/21 15:42 Course Orders Ordered: ED Orders 03/30/21 17:48 US abdomen limited Stat 03/30/21 18:40 XR acute abdomen series Stat 03/30/21 19:01 Complete Blood Count AUTO DIFF Stat Comprehensive Metabolic Panel Stat Lipase Stat 03/30/21 19:38 Urine Culture Stat Urine Microscopic Stat 03/30/21 21:05 Throat Culture Stat Vital Signs Vital signs: Vital Signs - 8 hr 03/30/21 21:41 Pulse Rate 80 Respiratory Rate 16 Blood Pressure 142/70 H Pulse Oximetry 99 MDM - Abdominal Pain Lab Data Result diagrams: 03/30/21 19:01 03/30/21 19:01 Labs: Lab Results 03/30/21 03/30/21 03/30/21 Range/Units 19:01 19:01 19:38 WBC 6.3 (4.5-11.0) X10^3/uL RBC 4.20 (4.0-5.2) X10^6/uL Hgb 12.0 (12.0-16.0) g/dL Hct 36.0 (36-46) % MCV 85.6 (80-100) fL MCH 28.5 (26-34) PG MCHC 33.3 (30-36) % RDW 15.8 H (11.6-14.8) % Plt Count 210 (150-400) X10^3/uL Neut % (Auto) 57.3 (50-75) % Lymph % (Auto) 31.5 (25-40) % [place] % (Auto) 6.7 (3-14) % Eos % (Auto) 3.3 (2-4) % Baso % (Auto) 1.2 (0-2) % Neut # (Auto) 3600 (9313-0763) /uL Lymph # (Auto) 2000 (6082-8935) /uL [place] # (Auto) 400 (0-900) /uL Eos # (Auto) 200 (0-450) /uL Baso # (Auto) 100 (0-100) /uL Sodium 136 L (137-145) mmol/L Potassium 4.1 (3.4-5.1) mmol/L Chloride 100 (98-107) mmol/L Carbon Dioxide 29 (22-32) mmol/L BUN 31 H (7-17) mg/dL Creatinine 1.32 H (0.52-1.04) mg/dL Estimated GFR 39.5 L (>60) mL/min BUN/Creatinine Ratio 23.5 H (6-22) Glucose 113 H (80-110) mg/dL Calcium 9.2 (8.4-10.2) mg/dL Total Bilirubin 0.2 (0.2-1.3) mg/dL AST 31 (14-36) IU/L ALT 12 (<35) IU/L Alkaline Phosphatase 69 (38-126) U/L Total Protein 7.3 (6.3-8.2) g/dL Albumin 4.2 (3.5-5.0) g/dL Globulin 3.1 (1.7-4.1) g/dL Albumin/Globulin Ratio 1.4 (1.0-2.8) Lipase 397 H (23-300) U/L Urine RBC None seen (0-5/HPF) Urine WBC 5-10/hpf H (0-5/HPF) Ur Squamous Epith Cells 1-5 /hpf (0-5/HPF) Urine Bacteria Occasional (0-1) (None) Ur Culture Indicated? Specimen cultured Point of care testing: Urine Dip Bedside Urine Glucose Negative Bedside Urine Bilirubin - Negative Bedside Urine Ketone - Negative Urine Specific [place] 1.20 Bedside Urine Occult Blood - Negative Bedside Urine pH 6.0 Bedside Urine Protein - Negative Bedside Urine Urobilinogen - Negative Bedside Urine Nitrite - Negative Bedside Urine Leukocytes + 70 Esterase Imaging Data US - abdomen: Radiologist's Impression: [address] [id number] ReportSigned Patient: Qiana Jackson LMR#: [id number]: 8Acct:[id number]/Sex: 71 / FDate of Service: 03/30/21Loc: EDAccession Number: [id number] Procedure: US abdomen limited Ordering Provider: Kenneth Soni D.O. PROCEDURE: US ABDOMEN LIMITED INDICATIONS: RUQ pain TECHNIQUE: Real-time focused scanning was performed of the abdomen, with image documentation. COMPARISON: [facility], CT, CT ABDOMEN PELVIS W CON, 06/17/2020, 21:29. [facility], US, US ABDOMEN LIMITED, 08/12/2020, 10:13. FINDINGS: Remote cholecystectomy. Expected prominence of the biliary tree, post cholecystectomy, not significant changed from previous CT. Common hepatic duct measures 9 mm. Common bile duct measures 8 mm. Visualized portions the pancreas are unremarkable. Liver has a normal echotexture. IMPRESSION: Remote cholecystectomy. No acute findings. Dictated by: Torres Merritt M.D. on 03/30/2021 at 18:45 Approved by: Torres Merritt M.D. on 03/30/2021 at 18:47 CT scan - head: Radiologist's Impression: [address] [id number] ReportSigned Patient: Qiana Jackson LMR#: [id number]: 8Acct:[id number]/Sex: 71 / FDate of Service: 03/30/21Loc: EDAccession Number: [id number] Procedure: XR acute abdomen series Ordering Provider: Rodri Ramirez D.O. PROCEDURE: XR ACUTE ABDOMEN SERIES INDICATIONS: severe abdominal pain TECHNIQUE: One view chest and two views of the abdomen were acquired. COMPARISON: None. FINDINGS: Surgical changes and devices: Cholecystectomy clips. Pelvic stimulator device.. Chest: Lungs are clear. Heart size is normal. No pleural effusions. No pneumoperitoneum. Abdomen: Bowel gas pattern is normal. Moderate fecal debris. No suspicious calcifications. Visualized solid organ contours appear normal. Bones: No suspicious bony lesions. IMPRESSION: 1. No evidence acute pulmonary process. 2. No evidence acute abdominal process. Dictated by: Torres Merritt M.D. on 03/30/2021 at 19:14 Approved by: Torres Merritt M.D. on 03/30/2021 at 19:17 MDM Narrative Medical decision making narrative: Multiple etiologies for patient's symptoms considered including: [Gallbladder disease versus appendicitis versus bowel obst ruction versus viral syndrome versus other] Patient's symptoms improved over duration of stay with above-stated therapies. Findings and discharge diagnosis discussed with patient/family followed by verbalization of understanding Return precautions discussed with patient/family whom verbalize understanding. Discharge Plan Departure Patient Disposition: Home Clinical Impression: Acute sore throat Abdominal pain Qualifiers: Abdominal location: generalized Qualified Code(s): R10.84 - Generalized abdominal pain Instructions: DI for Abdominal Pain-Adult Activity Restrictions/Additional Instructions: *You have been diagnosed with [sore throat without evidence of bacterial pharyngitis and generalized abdominal pain, labs and imaging are very reassuring.] *What to do: *Please continue to take your regular medications as directed. [ ] New medication prescriptions sent to your pharmacy: [ ] [ ] New medication written as a paper prescription [x ] No new medications given *Please follow up with your primary care provider in 2-3 days, call for an appointment. Let them know you were seen in the Emergency Department and that we ask that you be seen in follow up. We will electronically transmit a record of today's note if your PCP is in our system *If you do not have a primary care provider please contact the [facility] Resource line at [phone]. They will ask some questions about your medical history and help get you set up with a doctor in the community. *Return to Emergency Department if you should have any new, worsening or concerning symptoms, such as [fever greater than 101 F, shaking chills, worsening pain, persistent vomiting or other bothersome symptoms] Prescriptions: No Action estradiol [Estrace] 0.01 % (0.1 mg/gram) cream See Rx Instructions VAG .COMPLEX Qty: 42.5 RF: 3 alpha lipoic acid 600 mg capsule 600 mg PO DAILY RF: 0 metoprolol succinate 25 mg capsule,sprinkle,ER 24hr 25 mg PO DAILY RF: 0 Premarin 0.3 mg tablet 0.3 mg PO DAILY RF: 0 fluticasone propionate [Flonase Allergy Relief] 50 mcg/actuation [place],Suspension 50 mcg Intranasal DAILY PRN (Reason: Allergy Symptoms) RF: 0 omega-3 acid ethyl esters [Lovaza] 1 gram Capsule 2 cap PO BID RF: 0 sertraline 50 mg tablet 50 mg PO QPM RF: 0 ascorbic acid (vitamin C) 1,000 mg Tablet 1 g PO DAILY RF: 0 aspirin 81 mg Tablet,Delayed Release (Dr/Ec) 81 mg PO DAILY RF: 0 cholecalciferol (vitamin D3) [Vitamin D3] 1,000 unit Tablet 1,000 unit PO DAILY RF: 0 Probiotic Blend 2 billion cell-50 mg Capsule 1 - 3 cap PO DAILY RF: 0 metformin 500 mg Tablet 500 mg PO BID RF: 0 oxycodone 5 mg tablet 5 mg PO Q6H PRN (Reason: post operative pain) Qty: 20 RF: 0 ondansetron 4 mg tablet,disintegrating 4 mg PO Q8H PRN (Reason: nausea and vomiting) Qty: 20 RF: 0 docusate sodium 100 mg capsule 100 mg PO BID Qty: 20 RF: 0 tramadol 50 mg tablet 50 mg PO Q8H PRN (Reason: Pain) RF: 0 Referrals: Zachary Carroll MD [Primary Care Provider] -
--- NOTE | 2021-03-30 18:40 | DI.RAD.S_ITS ---
PROCEDURE: XR ACUTE ABDOMEN SERIES INDICATIONS: severe abdominal pain TECHNIQUE: One view chest and two views of the abdomen were acquired. COMPARISON: None. FINDINGS: Surgical changes and devices: Cholecystectomy clips. Pelvic stimulator device.. Chest: Lungs are clear. Heart size is normal. No pleural effusions. No pneumoperitoneum. Abdomen: Bowel gas pattern is normal. Moderate fecal debris. No suspicious calcifications. Visualized solid organ contours appear normal. Bones: No suspicious bony lesions. IMPRESSION: 1. No evidence acute pulmonary process. 2. No evidence acute abdominal process. Dictated by: Torres Merritt M.D. on 03/30/2021 at 19:14 Approved by: Torres Merritt M.D. on 03/30/2021 at 19:17
[2021-03-30 19:09] LABS: Add Manual Diff / Slide Review NO; Basophils Absolute Auto 100 /uL (0-100); Basophils Percent Auto 1.2 % (0-2); Eosinophils Absolute Auto 200 /uL (0-450); Eosinophils Percent Auto 3.3 % (2-4); Lymphocytes Absolute Auto 2000 /uL (1100-4500); Lymphocytes Percent Auto 31.5 % (25-40); Mean Corpuscular HGB Conc 33.3 % (30-36); Mean Corpuscular Hemoglobin 28.5 PG (26-34); Mean Corpuscular Volume 85.6 fL (80-100); Monocytes Absolute Auto 400 /uL (0-900); Monocytes Percent Auto 6.7 % (3-14); Neutrophils Absolute Auto 3600 /uL (1500-7000); Neutrophils Percent Auto 57.3 % (50-75); Platelet Count 210 X10^3/uL (150-400); Red Cell Distribution Width 15.8 % (11.6-14.8); White Blood Cell Count 6.3 X10^3/uL (4.5-11.0)
[2021-03-30 19:26] LABS: Alanine Aminotransferase 12 IU/L (<35); Albumin 4.2 g/dL (3.5-5.0); Albumin Globulin Ratio 1.4 (1.0-2.8); Alkaline Phosphatase 69 U/L (38-126); Aspartate Aminotransferase 31 IU/L (14-36); BUN Creatinine Ratio 23.5 (6-22); Bilirubin Total 0.2 mg/dL (0.2-1.3); Blood Urea Nitrogen 31 mg/dL (7-17); Calcium 9.2 mg/dL (8.4-10.2); Carbon Dioxide 29 mmol/L (22-32); Chloride 100 mmol/L (98-107); Estimated Glomerular Filt Rate 39.5 mL/min (>60); Globulin 3.1 g/dL (1.7-4.1); Glucose 113 mg/dL (80-110); HEMOLYSIS < 15 (0-50); Lipase 397 U/L (23-300); Potassium 4.1 mmol/L (3.4-5.1); Sodium 136 mmol/L (137-145); Total Protein 7.3 g/dL (6.3-8.2)
[2021-03-30 19:40] LABS: RBC Urine None Seen (0-5/HPF)
[2021-03-30 19:59] LABS: Squamous Epithelial Cell Urine 1-5 /HPF (0-5/HPF); WBC Urine 5-10/HPF (0-5/HPF)
[2021-03-30 20:00] LABS: Bacteria Urine Occasional (0-1); Culture Indicated Urine Specimen Cultured
[2021-03-30 21:41] VITALS: BP 142/70; PULSE 80; RESP 16; O2SAT 99
== END 2021-03-30 21:41 | disposition home or self-care (01) ==
PROVIDERS: Emergency Provider Emergency Medicine; PCP Family Medicine
DX: J02.9 Acute pharyngitis, unspecified (principal); R10.84 Generalized abdominal pain
CPT/HCPCS: 36415; 74022; 76705; 80053; 81003; 81015; 83690; 85025; 87070; 87086; 87147; 99284

== ENCOUNTER → 2022-12-27 15:54 | Outpatient (CLI) | payer MEDICARE, OTHER, SELFPAY ==
[2021-03-01 10:36] VITALS: BMI 21.5
--- NOTE | 2022-12-27 15:56 | DI.ECHO.S_ITS ---
[facility] +---------+ : : [address] [place] : : : : [id number] : : : : Phone: [phone]+ Echocardiogram Report + + :Name: YUKI MARETL Study Date: 12/27/2022 Height: 62 in : :[facility] ReadingLocation: Weight: 109 lb : : Gender: Female BSA: 1.5 m2 : :: 1950 Age: 72 yrs BP: 156/89 mmHg: :Reason For Study: Nonischemic cardiomyopathy : :Ordering Physician: Clau : :Sandra Ramos Performed By: Leti Valentin : :Referring: CLAU RAMOS : + + Interpretation Summary 1) Normal left ventricular size and thickness with mildly reduced systolic function (EF 45-50%). 2) Normal right ventricular size and function. 3) No significant valvular abnormalities. 4) Compared to the Echo done 12/16/2020, LVEF has decreased slightly on this study Procedure: A two-dimensional transthoracic echocardiogram with color flow and Doppler was performed. The study quality was technically adequate. The patient was in sinus rhythm with heart rates between 58-75 bpm during the exam. Left Ventricle: The left ventricle is normal in size and wall thickness. The ejection fraction is estimated to be 45-50%. There is mild global hypokinesis of the left ventricle. Septal motion is consistent with conduction abnormality. Diastolic parameters suggest a relaxation abnormality of the left ventricle, consistent with probable normal filling pressures. Right Ventricle: The right ventricle is normal in size and function. Atria: The left atrial size is normal. Right atrial size is normal. There is no Doppler evidence for an interatrial shunt. Mitral Valve: The mitral valve is normal in structure but abnormal in function. The mitral valve leaflets are slightly calcified. There is mild mitral regurgitation. Aortic Valve: There is mild aortic valve sclerosis. The aortic valve is trileaflet. The aortic valve opens well. There is no hemodynamically significant valvular aortic stenosis. There is trace aortic regurgitation. Tricuspid Valve: The tricuspid valve is normal in structure and function. There is a trace or physiologic amount of tricuspid regurgitation. The right ventricular systolic pressure is estimated to be at least 16.1 mmHg based on an estimated right atrial pressure of 3 mm Hg. Pulmonic Valve: The pulmonic valve leaflets are thin and pliable; valve motion is normal. There is mild pulmonic regurgitation. Great Vessels: The aortic root is normal size. The ascending aorta is normal in size. The IVC is of normal diameter and collapses greater than 50% with a sniff. This suggests a low right atrial pressure of 3 mm Hg. Pericardium/ Pleura There is no pericardial effusion. There is no pleural effusion. MMode/2D Measurements & Calculations LVIDd: 3.6 cm LVOT diam: 1.7 cm LVIDs: 2.9 cm Ao root diam: 2.7 cm FS: 19.4 % asc Aorta Diam: 2.6 cm EPSS: 0.50 cm IVSd: 1.0 cm LVPWd: 0.80 cm LV pascal. diameter/BSA (cm/m^2): 2.4 LV sys. diameter/BSA (cm/m^2): 2.0 LA dimension: 3.1 cm RA long axis: 3.6 cm LA A2 area: 15.5 cm2 RA area: 8062 cm2 LA A4 area: 12.3 cm2 RA vol: [id number] ml LA length (vol): 4.8 cm RA : 75999912 ml/m2 LA vol: 34.1 ml LA vol index: 23.1 ml/m2 RVD1 (basal): 3.4 cm LVLs ap4: 5.6 cm LVLd ap2: 7.1 cm TAPSE_phl: 2.0 cm LVLs ap2: 5.7 cm Doppler Measurements & Calculations Ao V2 max: 137.0 cm/sec LVOT Max [place]: 104.0 cm/sec Ao V2 mean: 102.0 cm/sec LV V1 max P.3 mmHg Ao max P.0 mmHg LV V1 VTI: 22.3 cm Ao mean P.0 mmHg JAYCOB(I,D): 1.6 cm2 Ao V2 VTI: 32.6 cm JAYCOB(V,D): 1.7 cm2 sev ratio: 0.68 JAYCOB indexed to BSA (cm^2/m^2): 1.1 MV E max lokesh: 90.8 cm/sec TR max lokesh: 181.0 cm/sec MV A max lokesh: 110.0 cm/sec TR max P.1 mmHg MV E/A: 0.83 PA V2 max: 101.0 cm/sec Med Peak E' [place]: 3.2 cm/sec PA V2 mean: 64.5 cm/sec E/E' med: 28.5 PA mean P.0 mmHg Lat Peak E' [place]: 5.9 cm/sec E/E' lat: 15.4 E/e' average: 21.9 MV dec time: 0.30 sec MVA(VTI): 1.3 cm2 MV V2 mean: 70.2 cm/sec SV(LVOT): 50.6 ml MV mean P.0 mmHg MV V2 VTI: 39.0 cm AV VR_phl: 0.76 MV P1/2t-pr_phl: 89.0 msec JAYCOB(VTI)/BSA_phl: 1.1 Reading Physician:05:45 PM
== END ==
PROVIDERS: PCP Family Medicine; Referring Provider Internal Medicine Cardiovascular Disease; Visit Provider Internal Medicine Cardiovascular Disease
DX: I42.8 Other cardiomyopathies (principal); I08.0 Rheumatic disorders of both mitral and aortic valves
CPT/HCPCS: 93306